=== PATIENT | female | born 1945 | race Caucasian/White ===

== ENCOUNTER 2016-08-22 13:18 | Emergency (ER) | payer MEDICARE, MEDICAID ==
[~2016-08-22 13:18] MED LIST: ANOR1AER INH; ASPI1TAB PO; ASPI81TA85 PO; ATOR1TAB21 PO; BISO10TA6 PO; CARV12.5 PO; DEMA5TAB PO; DIGO0.12 PO; DONETAB6 PO; DRIS50002 PO; FENO48TA2 PO; FERR325T PO; GLIM2TAB PO; GLIP-163 PO; HYDR-3363 PO; HYDR25T PO; LEVA500T PO; OMEP20CA3 PO; OXYB5TA PO; OXYB5TAB80 PO; POTA10CA PO; PRAD150C PO; SERT-138 PO; SPIR25TA2 PO; SPIRIVA INH; TORS20TA2 PO; TORS5TAB8 PO; VICT18IN SC; VITA10002 PO; VITA100072 PO; VITA500047 PO; ZOLO50TA PO; [UNRECOGNIZED DRUG - CODE] IM
--- NOTE | 2016-08-22 14:07 | EDDOCDS ---
Nurse's Notes [facility] Name: Cris Fields Age: 71 yrs Sex: Female : 1945 Arrival Date: 08/22/2016 Time: 13:18 Bed TR7 Private MD: Abdoul Sinha Diagnosis: Cellulitis of right lower limb;Conjunctivitis Presentation: 08/22 13:27 Presenting complaint: Patient states: picked off the mole from Right thigh 3 weeks ago. rs3 redness/swelling spread to R knee for 2 weeks. L eye itching for a week. symptoms getting worse. Adult Sepsis Screening: The patient does not have new or worsening altered mentation. Patient's respiratory rate is less than 22. Systolic blood pressure is greater than 100. Patient has a qSOFA score of 0- Negative Sepsis Screen. Suicide/Homicide risk assessment- the patient denies having any suicidal and/or homicidal ideations and does not present with any other emotional, behavioral or mental health complaints. Status: Patient is not a social service assistant or dependent. Transition of care: patient was not received from another setting of care. 13:27 Acuity: MACKENZIE Level 3 rs3 13:27 Method Of Arrival: Walkin/Carried/Asstd rs3 Triage Assessment: 13:34 General: Appears in no apparent distress. Pain: Location: right leg. rs3 Historical: - Allergies: no known allergies; - Home Meds: 1. atorvastatin 20 mg oral tab 1 tab once daily 2. Vitamin D Oral 97608 unit weekly 3. glipizide 2.5 mg Oral tr24 2 tabs twice a day 4. aspirin 81 mg Oral TbEC 1 tab once daily 5. digoxin 125 mcg Oral tab 1 tab once daily 6. oxybutynin chloride 5 mg Oral tr24 1 tab three times a day 7. omeprazole 20 mg Oral cpDR 1 cap once daily 8. spironolactone 25 mg Oral tab 1 tab once daily 9. torsemide 20 mg oral tab 2 tabs twice a day 10. ferrous sulfate 325 mg (65 mg iron) Oral TbEC daily 11. Klor-Con 10 10 mEq Oral TbER 2 tabs 2 times per day 12. fenofibrate 50 mg oral cap 1 cap once daily 13. Zoloft 100 mg Oral tab 1.5 tabs once daily 14. carvedilol 12.5 mg oral tab 1 tab 2 times per day 15. memantine 10 mg oral tab 2 times per day 16. Victoza 2-Shadi 0.6 mg/0.1 mL (18 mg/3 mL) subcutaneous pnij 0.3 mL once daily 17. Anoro Ellipta 62.5-25 mcg/actuation inhalation dsdv 1 puff once daily - PMHx: Alzheimers; Atrial Fib; CHF; Diabetes - NIDDM: uncontrolled; High Cholesterol; Hypertension; [place]; overactive bladder; - PSHx: Cholecystectomy; CABG; PTCA; - Social history: Smoking status: Patient states former smoker of tobacco. No barriers to communication noted, The patient speaks fluent Latvian. - Family history: Not pertinent. - : The pt / caregiver states he / she is not on anticoagulants. Home medication list is obtained from the patient. - Exposure Risk Screening:: None identified. Screenin:22 Infection Control. [facility] 14:06 Screening information is obtained from the patient. Fall risk: No risks identified. rs3 Assistance ADL's: requires no assistance with activities of daily living. Abuse/DV Screen: The patient / caregiver reports he/she is: not in a situation that causes fear, pain or injury. Nutritional screening: No deficits noted. Advance Directives: Currently, there is no health care proxy. home support is adequate. Assessment: 14:04 General: Appears in no apparent distress, Behavior is appropriate for age, cooperative. rs3 Pain: Location: lateral aspect of right thigh. Respiratory: Airway is patent Respiratory effort is even, unlabored. Derm: erythema well demarcated on right lateral thigh. No ulceration or drainage. Swollen area noted. Vital Signs: 13:20 BP 173 / 94; Pulse 74; Resp 18; Temp 98.6; Pulse Ox 100% ; Weight 77.11 kg; Height 5 dem1 ft. 2 in. (157.48 cm); Pain 9/10; 13:20 Body Mass Index 31.09 (77.11 kg, 157.48 cm) [facility] Vitals: 13:20 Log In Time: August 22, 2016 at 13:19. [facility] ED Course: 13:20 Patient visited by Charis Russell. [facility] 13:20 Abdoul Sinha is Private Physician. dem1 13:20 Patient moved to Waiting dem1 13:22 Patient moved to Pre RCE dem1 13:30 Triage Initiated rs3 13:35 José Luis Vaughan PA-C is PSYCH[facility]IC[facility]. cc10 13:35 Jason Pérez MD is Attending Physician. cc10 13:35 Patient moved to Triage 1 rs3 13:53 Patient visited by José Luis Vaughan PA-C. cc10 13:53 Patient visited by José Luis Vaughan PA-C. cc10 13:58 [facility] is Referral Physician. cc10 13:59 [facility] Payment Agreement was scanned into [employer] and attached to record. 14:04 Patient moved to TR7 rs3 14:06 No IV's were initiated during this patient's visit. No procedures done that require rs3 assistance. 14:07 The patient / caregiver is instructed regarding the plan of care and ED course. rs3 Order Results: There are currently no results for this order. Outcome: 13:58 Discharge ordered by Provider. cc10 14:06 Discharge Assessment: patient administered narcotics - no. The following High Risk rs3 Discharge criteria are identified: None. Discharged to home with family. Condition: stable. Discharge instructions given to patient, Instructed on discharge instructions, follow up and referral plans. medication usage, Demonstrated understanding of instructions, medications, Pt was receptive of discharge instructions/ teaching. Prescriptions given X 2. No special radiology studies were completed. Property :Personal belongings accompany Pt. 14:07 Patient left the ED. rs3 Signatures: Bonita Sánchez, Reg Reg Kassie Saldana RN RN rs3 Drew Stevenlesvia dem1 José Luis Vaughan PA-C PA-C cc10 Corrections: (The following items were deleted from the chart) 13:35 13:27 Presenting complaint: Patient states: picked off the mole from Right thigh 3 rs3 weeks ago. redness/swelling spread to R knee for 2 weeks. symptoms getting worse. rs3 MTDD
--- NOTE | 2016-08-22 14:07 | EDDOCDS ---
Physician Documentation [facility] Name: Cris Fields Age: 71 yrs Sex: Female : 1945 Arrival Date: 08/22/2016 Time: 13:18 Bed TR7 Private MD: Abdoul Sinha Disposition: 08/22/16 13:58 Discharged to Home/Self Care. Impression: Cellulitis of right lower limb, Conjunctivitis. - Condition is Stable. - Discharge Instructions: Cellulitis, Eye - Viral Conjunctivitis. - Prescriptions for Naphcon- A 0.025-0.3 % Ophthalmic Drops - instill 1 drop by OPHTHALMIC route 2-4 times daily; 1 bottle. Doxycycline Hyclate 100 mg Oral Tablet - take 1 tablet by ORAL route every 12 hours; 20 tablet. - Medication Reconciliation form. - Follow up: Emergency Department; When: As needed; Reason: Worsening of conditions. [facility]: [facility]; When: Call to arrange an appointment; Reason: To establish care. - Problem is an ongoing problem. - Symptoms are unchanged. - Notes: Please follow up with the [facility] clinic for a wound recheck and care. Thanks. Historical: - Allergies: no known allergies; - Home Meds: 1. atorvastatin 20 mg oral tab 1 tab once daily 2. Vitamin D Oral 81978 unit weekly 3. glipizide 2.5 mg Oral tr24 2 tabs twice a day 4. aspirin 81 mg Oral TbEC 1 tab once daily 5. digoxin 125 mcg Oral tab 1 tab once daily 6. oxybutynin chloride 5 mg Oral tr24 1 tab three times a day 7. omeprazole 20 mg Oral cpDR 1 cap once daily 8. spironolactone 25 mg Oral tab 1 tab once daily 9. torsemide 20 mg oral tab 2 tabs twice a day 10. ferrous sulfate 325 mg (65 mg iron) Oral TbEC daily 11. Klor-Con 10 10 mEq Oral TbER 2 tabs 2 times per day 12. fenofibrate 50 mg oral cap 1 cap once daily 13. Zoloft 100 mg Oral tab 1.5 tabs once daily 14. carvedilol 12.5 mg oral tab 1 tab 2 times per day 15. memantine 10 mg oral tab 2 times per day 16. Victoza 2-Shadi 0.6 mg/0.1 mL (18 mg/3 mL) subcutaneous pnij 0.3 mL once daily 17. Anoro Ellipta 62.5-25 mcg/actuation inhalation dsdv 1 puff once daily - PMHx: Alzheimers; Atrial Fib; CHF; Diabetes - NIDDM: uncontrolled; High Cholesterol; Hypertension; [place]; overactive bladder; - PSHx: Cholecystectomy; CABG; PTCA; - Social history: Smoking status: Patient states former smoker of tobacco. No barriers to communication noted, The patient speaks fluent Maori. - Family history: Not pertinent. - : The pt / caregiver states he / she is not on anticoagulants. Home medication list is obtained from the patient. - Exposure Risk Screening:: None identified. Vital Signs: 08/22 13:20 BP 173 / 94; Pulse 74; Resp 18; Temp 98.6; Pulse Ox 100% ; Weight 77.11 kg / 170 lbs; dem1 Height 5 ft. 2 in. (157.48 cm); Pain 9/10; 13:20 Body Mass Index 31.09 (77.11 kg, 157.48 cm) dem1 MDM: 13:59 Financial registration complete. gb 13:59 [facility] Payment Agreement was scanned into [employer] and attached to record. gb Signatures: Bonita Sánchez, Reg Reg gb Kassie SaldanaRN RN rs3 José Luis Vaughan, TODDC PALinda cc10 The chart was reviewed and I authenticate all verbal orders and agree with the evaluation and treatment provided.Attachments: 13:59 [facility] Payment Agreement gb MTDD
--- NOTE | 2016-08-24 15:08 | EDDOCDS ---
Physician Documentation [facility] Name: Cris Fields Age: 71 yrs Sex: Female : 1945 Arrival Date: 08/22/2016 Time: 13:18 Bed TR7 Private MD: Abdoul Sinha Disposition: 08/22/16 13:58 Discharged to Home/Self Care. Impression: Cellulitis of right lower limb, Conjunctivitis. - Condition is Stable. - Discharge Instructions: Cellulitis, Eye - Viral Conjunctivitis. - Prescriptions for Naphcon- A 0.025-0.3 % Ophthalmic Drops - instill 1 drop by OPHTHALMIC route 2-4 times daily; 1 bottle. Doxycycline Hyclate 100 mg Oral Tablet - take 1 tablet by ORAL route every 12 hours; 20 tablet. - Medication Reconciliation form. - Follow up: Emergency Department; When: As needed; Reason: Worsening of conditions. Follow up: [facility]; When: Call to arrange an appointment; Reason: To establish care. - Problem is an ongoing problem. - Symptoms are unchanged. - Notes: Please follow up with the [facility] clinic for a wound recheck and care. Thanks. Historical: - Allergies: no known allergies; - Home Meds: 1. atorvastatin 20 mg oral tab 1 tab once daily 2. Vitamin D Oral 08557 unit weekly 3. glipizide 2.5 mg Oral tr24 2 tabs twice a day 4. aspirin 81 mg Oral TbEC 1 tab once daily 5. digoxin 125 mcg Oral tab 1 tab once daily 6. oxybutynin chloride 5 mg Oral tr24 1 tab three times a day 7. omeprazole 20 mg Oral cpDR 1 cap once daily 8. spironolactone 25 mg Oral tab 1 tab once daily 9. torsemide 20 mg oral tab 2 tabs twice a day 10. ferrous sulfate 325 mg (65 mg iron) Oral TbEC daily 11. Klor-Con 10 10 mEq Oral TbER 2 tabs 2 times per day 12. fenofibrate 50 mg oral cap 1 cap once daily 13. Zoloft 100 mg Oral tab 1.5 tabs once daily 14. carvedilol 12.5 mg oral tab 1 tab 2 times per day 15. memantine 10 mg oral tab 2 times per day 16. Victoza 2-Shadi 0.6 mg/0.1 mL (18 mg/3 mL) subcutaneous pnij 0.3 mL once daily 17. Anoro Ellipta 62.5-25 mcg/actuation inhalation dsdv 1 puff once daily - PMHx: Alzheimers; Atrial Fib; CHF; Diabetes - NIDDM: uncontrolled; High Cholesterol; Hypertension; [place]; overactive bladder; - PSHx: Cholecystectomy; CABG; PTCA; - Social history: Smoking status: Patient states former smoker of tobacco. No barriers to communication noted, The patient speaks fluent Arabic. - Family history: Not pertinent. - : The pt / caregiver states he / she is not on anticoagulants. Home medication list is obtained from the patient. - Exposure Risk Screening:: None identified. Vital Signs: 08/22 13:20 BP 173 / 94; Pulse 74; Resp 18; Temp 98.6; Pulse Ox 100% ; Weight 77.11 kg / 170 lbs; dem1 Height 5 ft. 2 in. (157.48 cm); Pain 9/10; 13:20 Body Mass Index 31.09 (77.11 kg, 157.48 cm) dem1 MDM: 13:59 Financial registration complete. gb 13:59 [facility] Payment Agreement was scanned into [employer] and attached to record. gb 17:21 T-Sheet-- Draft Copy was scanned into [employer] and attached to record. klr Signatures: Bonita Sánchez, Reg Reg gb Kassie Saldana,RN RN rs3 José Luis Vaughan PA-C PAUrbanC cc10 Denice Moreno The chart was reviewed and I authenticate all verbal orders and agree with the evaluation and treatment provided.Attachments: 13:59 [facility] Payment Agreement gb 17:21 T-Sheet-- Draft Copy klr Chart Complete MTDD
--- NOTE | 2016-08-24 15:08 | EDDOCDS ---
Physician Documentation [facility] Name: Cris Fields Age: 71 yrs Sex: Female : 1945 Arrival Date: 08/22/2016 Time: 13:18 Bed TR7 Private MD: Abdoul Sinha Disposition: 08/22/16 13:58 Discharged to Home/Self Care. Impression: Cellulitis of right lower limb, Conjunctivitis. - Condition is Stable. - Discharge Instructions: Cellulitis, Eye - Viral Conjunctivitis. - Prescriptions for Naphcon- A 0.025-0.3 % Ophthalmic Drops - instill 1 drop by OPHTHALMIC route 2-4 times daily; 1 bottle. Doxycycline Hyclate 100 mg Oral Tablet - take 1 tablet by ORAL route every 12 hours; 20 tablet. - Medication Reconciliation form. - Follow up: Emergency Department; When: As needed; Reason: Worsening of conditions. Follow up: [facility]; When: Call to arrange an appointment; Reason: To establish care. - Problem is an ongoing problem. - Symptoms are unchanged. - Notes: Please follow up with the [facility] clinic for a wound recheck and care. Thanks. Historical: - Allergies: no known allergies; - Home Meds: 1. atorvastatin 20 mg oral tab 1 tab once daily 2. Vitamin D Oral 46699 unit weekly 3. glipizide 2.5 mg Oral tr24 2 tabs twice a day 4. aspirin 81 mg Oral TbEC 1 tab once daily 5. digoxin 125 mcg Oral tab 1 tab once daily 6. oxybutynin chloride 5 mg Oral tr24 1 tab three times a day 7. omeprazole 20 mg Oral cpDR 1 cap once daily 8. spironolactone 25 mg Oral tab 1 tab once daily 9. torsemide 20 mg oral tab 2 tabs twice a day 10. ferrous sulfate 325 mg (65 mg iron) Oral TbEC daily 11. Klor-Con 10 10 mEq Oral TbER 2 tabs 2 times per day 12. fenofibrate 50 mg oral cap 1 cap once daily 13. Zoloft 100 mg Oral tab 1.5 tabs once daily 14. carvedilol 12.5 mg oral tab 1 tab 2 times per day 15. memantine 10 mg oral tab 2 times per day 16. Victoza 2-Shadi 0.6 mg/0.1 mL (18 mg/3 mL) subcutaneous pnij 0.3 mL once daily 17. Anoro Ellipta 62.5-25 mcg/actuation inhalation dsdv 1 puff once daily - PMHx: Alzheimers; Atrial Fib; CHF; Diabetes - NIDDM: uncontrolled; High Cholesterol; Hypertension; [place]; overactive bladder; - PSHx: Cholecystectomy; CABG; PTCA; - Social history: Smoking status: Patient states former smoker of tobacco. No barriers to communication noted, The patient speaks fluent Macedonian. - Family history: Not pertinent. - : The pt / caregiver states he / she is not on anticoagulants. Home medication list is obtained from the patient. - Exposure Risk Screening:: None identified. Vital Signs: 08/22 13:20 BP 173 / 94; Pulse 74; Resp 18; Temp 98.6; Pulse Ox 100% ; Weight 77.11 kg / 170 lbs; dem1 Height 5 ft. 2 in. (157.48 cm); Pain 9/10; 13:20 Body Mass Index 31.09 (77.11 kg, 157.48 cm) dem1 MDM: 13:59 Financial registration complete. gb 13:59 [facility] Payment Agreement was scanned into [employer] and attached to record. gb 17:21 T-Sheet-- Draft Copy was scanned into [employer] and attached to record. klr Signatures: Bonita Sánchez, Reg Reg gb Kassie Saldana,RN RN rs3 José Luis Vaughan PA-C PAUrbanC cc10 Denice Moreno The chart was reviewed and I authenticate all verbal orders and agree with the evaluation and treatment provided.Attachments: 13:59 [facility] Payment Agreement gb 17:21 T-Sheet-- Draft Copy klr Chart Complete MTDD
--- NOTE | 2016-08-24 15:08 | EDDOCDS ---
Nurse's Notes [facility] Name: Cris Fields Age: 71 yrs Sex: Female : 1945 Arrival Date: 08/22/2016 Time: 13:18 Bed TR7 Private MD: Abdoul Sinha Diagnosis: Cellulitis of right lower limb;Conjunctivitis Presentation: 08/22 13:27 Presenting complaint: Patient states: picked off the mole from Right thigh 3 weeks ago. rs3 redness/swelling spread to R knee for 2 weeks. L eye itching for a week. symptoms getting worse. Adult Sepsis Screening: The patient does not have new or worsening altered mentation. Patient's respiratory rate is less than 22. Systolic blood pressure is greater than 100. Patient has a qSOFA score of 0- Negative Sepsis Screen. Suicide/Homicide risk assessment- the patient denies having any suicidal and/or homicidal ideations and does not present with any other emotional, behavioral or mental health complaints. Status: Patient is not a director clinical information services or dependent. Transition of care: patient was not received from another setting of care. 13:27 Acuity: MACKENZIE Level 3 rs3 13:27 Method Of Arrival: Walkin/Carried/Asstd rs3 Triage Assessment: 13:34 General: Appears in no apparent distress. Pain: Location: right leg. rs3 Historical: - Allergies: no known allergies; - Home Meds: 1. atorvastatin 20 mg oral tab 1 tab once daily 2. Vitamin D Oral 9[address]39 unit weekly 3. glipizide 2.5 mg Oral tr24 2 tabs twice a day 4. aspirin 81 mg Oral TbEC 1 tab once daily 5. digoxin 125 mcg Oral tab 1 tab once daily 6. oxybutynin chloride 5 mg Oral tr24 1 tab three times a day 7. omeprazole 20 mg Oral cpDR 1 cap once daily 8. spironolactone 25 mg Oral tab 1 tab once daily 9. torsemide 20 mg oral tab 2 tabs twice a day 10. ferrous sulfate 325 mg (65 mg iron) Oral TbEC daily 11. Klor-Con 10 10 mEq Oral TbER 2 tabs 2 times per day 12. fenofibrate 50 mg oral cap 1 cap once daily 13. Zoloft 100 mg Oral tab 1.5 tabs once daily 14. carvedilol 12.5 mg oral tab 1 tab 2 times per day 15. memantine 10 mg oral tab 2 times per day 16. Victoza 2-Shadi 0.6 mg/0.1 mL (18 mg/3 mL) subcutaneous pnij 0.3 mL once daily 17. Anoro Ellipta 62.5-25 mcg/actuation inhalation dsdv 1 puff once daily - PMHx: Alzheimers; Atrial Fib; CHF; Diabetes - NIDDM: uncontrolled; High Cholesterol; Hypertension; [place]; overactive bladder; - PSHx: Cholecystectomy; CABG; PTCA; - Social history: Smoking status: Patient states former smoker of tobacco. No barriers to communication noted, The patient speaks fluent Bulgarian. - Family history: Not pertinent. - : The pt / caregiver states he / she is not on anticoagulants. Home medication list is obtained from the patient. - Exposure Risk Screening:: None identified. Screenin:22 Infection Control. [facility] 14:06 Screening information is obtained from the patient. Fall risk: No risks identified. rs3 Assistance ADL's: requires no assistance with activities of daily living. Abuse/DV Screen: The patient / caregiver reports he/she is: not in a situation that causes fear, pain or injury. Nutritional screening: No deficits noted. Advance Directives: Currently, there is no health care proxy. home support is adequate. Assessment: 14:04 General: Appears in no apparent distress, Behavior is appropriate for age, cooperative. rs3 Pain: Location: lateral aspect of right thigh. Respiratory: Airway is patent Respiratory effort is even, unlabored. Derm: erythema well demarcated on right lateral thigh. No ulceration or drainage. Swollen area noted. Vital Signs: 13:20 BP 173 / 94; Pulse 74; Resp 18; Temp 98.6; Pulse Ox 100% ; Weight 77.11 kg; Height 5 dem1 ft. 2 in. (157.48 cm); Pain 9/10; 13:20 Body Mass Index 31.09 (77.11 kg, 157.48 cm) [facility] Vitals: 13:20 Log In Time: August 22, 2016 at 13:19. [facility] ED Course: 13:20 Patient visited by Charis Russell. [facility] 13:20 Abdoul Sinha is Private Physician. dem1 13:20 Patient moved to Waiting dem1 13:22 Patient moved to Pre RCE dem1 13:30 Triage Initiated rs3 13:35 [facility] cc[facility] 13:35 Jason Pérez MD is Attending Physician. cc10 13:35 Patient moved to Triage 1 rs3 13:53 Patient visited by José Luis Vaughan PA-C. cc10 13:53 Patient visited by José Luis Vaughan PA-C. cc10 13:58 [facility] is Referral Physician. cc10 13:59 [facility] Payment Agreement was scanned into [employer] and attached to record. gb 14:04 Patient moved to TR7 rs3 14:06 No IV's were initiated during this patient's visit. No procedures done that require rs3 assistance. 14:07 The patient / caregiver is instructed regarding the plan of care and ED course. rs3 17:21 T-Sheet-- Draft Copy was scanned into [employer] [place] and attached to record. klr Order Results: There are currently no results for this order. Outcome: 13:58 Discharge ordered by Provider. cc10 14:06 Discharge Assessment: patient administered narcotics - no. The following High Risk rs3 Discharge criteria are identified: None. Discharged to home with family. Condition: stable. Discharge instructions given to patient, Instructed on discharge instructions, follow up and referral plans. medication usage, Demonstrated understanding of instructions, medications, Pt was receptive of discharge instructions/ teaching. Prescriptions given X 2. No special radiology studies were completed. Property :Personal belongings accompany Pt. 14:07 Patient left the ED. rs3 Signatures: Bonita Sánchez, Reg Reg Kassie Saldana RN RN rs3 Charis Russell dem1 José Luis Vaughan PA-C PA-C cc10 Denice Moreno klr Corrections: (The following items were deleted from the chart) 13:35 13:27 Presenting complaint: Patient states: picked off the mole from Right thigh 3 rs3 weeks ago. redness/swelling spread to R knee for 2 weeks. symptoms getting worse. rs3 Chart Complete MTDD
== END 2016-08-22 14:07 | disposition home or self-care (01) ==
LOC: M ED 13:18
DX: L03.115 Cellulitis of right lower limb (principal); H10.30 Unspecified acute conjunctivitis, unspecified eye; G30.9 Alzheimer's disease, unspecified; I48.91 Unspecified atrial fibrillation; I50.20 Unspecified systolic (congestive) heart failure; E11.65 Type 2 diabetes mellitus with hyperglycemia; E78.00 Pure hypercholesterolemia, unspecified; I10 Essential (primary) hypertension; I25.2 Old myocardial infarction; N32.81 Overactive bladder; Z87.891 Personal history of nicotine dependence; Z79.82 Long term (current) use of aspirin; Z79.899 Other long term (current) drug therapy

== ENCOUNTER → 2016-09-09 | Outpatient (REF) | payer MEDICARE, MEDICAID | LOC: M LAB REF 12:43 | PROVIDERS: ATTEND Family Medicine | DX: R10.84 Generalized abdominal pain (principal); I10 Essential (primary) hypertension; R32 Unspecified urinary incontinence; E11.8 Type 2 diabetes mellitus with unspecified complications; Z00.00 Encounter for general adult medical examination without abnormal findings ==

== ENCOUNTER → 2016-09-09 | Outpatient (REF) | payer MEDICARE, MEDICAID ==
[2016-09-09 15:56] LABS: BASO # 0.1 K/mm3 (0.0-0.2); BASO % 0.9 % (0.0-1.0); EOS # 0.2 K/mm3 (0.0-0.50); EOS % 1.9 % (0.0-3.0); LARGE UNSTAINED CELL # 0.1 K/mm3 (0.0-0.4); LARGE UNSTAINED CELL % 0.9 % (0.0-4.0); LYMPH # 2.1 K/mm3 (1.5-4.5); LYMPH % 20.6 % (24.0-44.0); MEAN CORPUSCULAR HEMOGLOBIN 30.6 pg (27.0-33.0); MEAN CORPUSCULAR HGB CONC 34.8 g/dl (32.0-36.5); MONO # 0.5 K/mm3 (0.0-0.8); MONO % 5.1 % (0.0-5.0); NEUTROPHILS # 6.8 K/mm3 (1.8-7.7); NEUTROPHILS % 70.5 % (36.0-66.0); PLATELET COUNT, AUTOMATED 314 k/mm3 (150-450); RED CELL DISTRIBUTION WIDTH 13.8 % (11.5-14.5); WHITE BLOOD COUNT 9.7 K/mm3 (4.0-10.0)
[2016-09-09 16:33] LABS: ALBUMIN 4.2 GM/DL (3.2-5.2); ALBUMIN/GLOBULIN RATIO 1.14 (1.00-1.93); BILIRUBIN,TOTAL 0.9 MG/DL (0.2-1.0); CALCIUM LEVEL 9.2 MG/DL (8.8-10.2); CREATININE FOR GFR 1.05 MG/DL (0.55-1.02); FREE T4 0.69 NG/DL (0.76-1.46); GLOMERULAR FILTRATION RATE 54.7 (>39); POTASSIUM SERUM 3.6 MEQ/L (3.5-5.1); TOTAL PROTEIN 7.9 GM/DL (6.4-8.2)
== END ==
LOC: M LABDRAW1 15:25
PROVIDERS: ATTEND Family Medicine
DX: R10.84 Generalized abdominal pain (principal); I10 Essential (primary) hypertension; R32 Unspecified urinary incontinence; E11.8 Type 2 diabetes mellitus with unspecified complications; Z00.00 Encounter for general adult medical examination without abnormal findings

== ENCOUNTER → 2016-10-16 | Outpatient (CLI) | payer MEDICARE, MEDICAID ==
--- NOTE | 2016-10-16 15:12 | REP ---
Renal and bladder ultrasound: The kidneys are normal size. The right kidney measures 10.9 x 4.6 x 3.7 cm. Left kidney measures 10.6 x 4.3 x 4.4 cm. Renal cortical echogenicity is normal bilaterally. There is no hydronephrosis on the right on the left. There is a right renal 5.2 mm upper pole calculus. . There are no left renal calculi. There is no hydronephrosis, mass or cyst on the right on the left. Bladder ultrasound: The bladder is nondistended and the prevoid bladder contains 34 millimeters. Postvoid bladder contains 17 ml. The postvoid residual is 50%. Impression: Right renal non obstructive upper pole calculus. Otherwise, negative renal ultrasound. The bladder is nondistended and cannot be assessed. Signed by Maykel Tang MD 10/16/2016 03:03 P
== END ==
LOC: M RAD 13:11
PROVIDERS: ATTEND Family Medicine
DX: M54.5 Low back pain (principal)

== ENCOUNTER 2016-11-17 22:44 | Emergency (ER) | payer MEDICARE, MEDICAID ==
[~2016-11-17] VITALS: Ht 154.9 cm; Wt 83.9 kg
[2016-11-17] MEDS ORDERED: GLIP5TAB8 PO (23:00)
[2016-11-17] MEDS ORDERED: VICT18IN SC (23:00)
[2016-11-17] MEDS ORDERED: NAME10TA PO (23:00)
[2016-11-17] MEDS ORDERED: CIPR500T89 PO (23:00)
[2016-11-17] MEDS ORDERED: INVO100T PO (23:00)
[2016-11-17] MEDS ORDERED: LEVO75TA4 PO (23:00)
[2016-11-18] MEDS ORDERED: ASPIRIN 325 MG TAB PO ONE (00:15)
[2016-11-18 00:30] LABS: BASO # 0.1 K/mm3 (0.0-0.2); BASO % 0.6 % (0.0-1.0); EOS # 0.3 K/mm3 (0.0-0.50); EOS % 2.8 % (0.0-3.0); LARGE UNSTAINED CELL # 0.1 K/mm3 (0.0-0.4); LARGE UNSTAINED CELL % 1.3 % (0.0-4.0); LYMPH # 2.6 K/mm3 (1.5-4.5); LYMPH % 25.5 % (24.0-44.0); MEAN CORPUSCULAR HEMOGLOBIN 31.7 pg (27.0-33.0); MEAN CORPUSCULAR HGB CONC 34.9 g/dl (32.0-36.5); MEAN CORPUSCULAR VOLUME 90.6 fl (80.0-96.0); MONO # 0.6 K/mm3 (0.0-0.8); NEUTROPHILS # 6.4 K/mm3 (1.8-7.7); NEUTROPHILS % 63.8 % (36.0-66.0); PLATELET COUNT, AUTOMATED 290 k/mm3 (150-450); RED CELL DISTRIBUTION WIDTH 13.5 % (11.5-14.5)
[2016-11-18 00:43] LABS: INR 1.02
[2016-11-18 00:53] LABS: ANION GAP 5 MEQ/L (8-16); BLOOD UREA NITROGEN 17 MG/DL (7-18); CALCIUM LEVEL 8.7 MG/DL (8.8-10.2); CARBON DIOXIDE LEVEL 30 MEQ/L (21-32); CHLORIDE LEVEL 104 MEQ/L (98-107); CREATININE FOR GFR 0.98 MG/DL (0.55-1.02); GLOMERULAR FILTRATION RATE 59.2 (>39); GLUCOSE, FASTING 201 MG/DL (83-110); POTASSIUM SERUM 3.4 MEQ/L (3.5-5.1); SODIUM LEVEL 139 MEQ/L (136-145)
[2016-11-18] MEDS ORDERED: NS 1,000 ML IV ONE (01:15)
[2016-11-18] MEDS ORDERED: ISOVUE-370 76% 100ML VIAL (Q9967) As Ordered ONE (01:22)
--- NOTE | 2016-11-18 02:20 | REPUSA ---
CLINICAL HISTORY: Pain, exclude PE. TECHNIQUE: Multiple incremental axial, coronal and oblique images are obtained from the thoracic inle t to the upper abdomen. Intravenous contrast material was administered as per pulmonary embolism prot ocol. COMMENTS: Endovascular stent is noted in the proximal aspect of the left common carotid artery. There is excellent opacification of pulmonary arterial system without evidence for pulmonary embolism . Aorta is of normal caliber without evidence for dissection or aneurysm. Bilateral basilar atelectatic pulmonary changes. There is no evidence of pleural or parenchymal mass. There are no pleural effusions. There is no evid ence of hilar or mediastinal lymphadenopathy. The heart is mildly enlarged. Images of the upper abdomen demonstrate no evidence of adrenal mass. The bony structures are free of lytic or blastic lesions. Multilevel degenerative changes are seen in volving the visualized thoracolumbar spine. Scattered calcifications are seen involving the aorta and major branches compatible with atherosclero sis. IMPRESSION: No evidence for pulmonary embolism. Endovascular stent is noted in the proximal aspect of the left common carotid artery. Thank you for your kind referral of this patient.
[2016-11-18 04:41] VITALS: BP 133/60
--- NOTE | 2016-11-18 20:14 | ECGEPIP ---
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
--- NOTE | 2016-11-18 20:15 | ECGEPIP ---
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
== END 2016-11-18 04:56 | disposition home or self-care (01) ==
LOC: M ED 11-18 00:22
DX: R07.89 Other chest pain (principal); S13.4XXA Sprain of ligaments of cervical spine, initial encounter
CPT/HCPCS: 71275; 80048; 82550; 82553; 84484; 85025; 85610; 85730; 93005; 99285; Q9967

== ENCOUNTER → 2017-01-20 | Outpatient (CLI) | payer MEDICARE, MEDICAID ==
[~2017-01-20] MED LIST changes: +CIPR-249 PO; +CORE12.5 PO; +DEPA250T32 PO; +FERR1TAB8 PO; -FERR325T PO; +GLIP5TAB8 PO; +INVO100T PO; +LEVA1TAB2 PO; -LEVA500T PO; +LEVO75TA4 PO; +NAME10TA PO; +NORCOTAB PO; -OXYB5TA PO; +OXYB5TAB10 PO; +RANI15TA PO; +TRIC145T22 PO; +ZOFR4TAB3 PO; +ZYRT10CA PO
[2017-01-20 15:19] LABS: ALBUMIN 3.9 GM/DL (3.2-5.2); CALCIUM LEVEL 9.6 MG/DL (8.8-10.2); CREATININE FOR GFR 0.99 MG/DL (0.55-1.02); GLOMERULAR FILTRATION RATE 58.5 (>39); MAGNESIUM LEVEL 2.6 MG/DL (1.8-2.4); PHOSPHORUS LEVEL 3.4 MG/DL (2.5-4.9)
== END ==
LOC: M LAB 14:17
PROVIDERS: ATTEND Physician Assistant
DX: I50.32 Chronic diastolic (congestive) heart failure (principal)

== ENCOUNTER 2017-02-23 13:26 | Emergency (ER) | payer MEDICARE, MEDICAID ==
[~2017-02-23 13:26] MED LIST changes: -CORE12.5 PO; -DEPA250T32 PO; -NORCOTAB PO; -RANI15TA PO; -TRIC145T22 PO; -ZOFR4TAB3 PO; -ZYRT10CA PO
[2017-02-23] MEDS ORDERED: ZOFR4TAB3 PO (13:42)
[2017-02-23] MEDS ORDERED: DEPA250T32 PO (13:42)
[2017-02-23] MEDS ORDERED: TRIC145T22 PO (13:42)
[2017-02-23] MEDS ORDERED: DONETAB6 PO (13:42)
[2017-02-23] MEDS ORDERED: CORE12.5 PO (13:42)
[2017-02-23] MEDS ORDERED: RANI15TA PO (13:42)
[2017-02-23] MEDS ORDERED: ZYRT10CA PO (13:42)
[2017-02-23] MEDS: NORCO, ANEXSIA 5/325MG TABLET (HYDROcodone/ACETAMINOPHEN) PO ONE (15:23)
[2017-02-23] MEDS ORDERED: NORCOTAB PO (16:09)
[2017-02-23 16:20] VITALS: BP 128/67
--- NOTE | 2017-02-23 17:41 | REP ---
Left knee series: Five views. History: Injury in a fall. Findings: Five views of the left knee demonstrate diffuse osteopenia and chondrocalcinosis. There is no visible fracture, subluxation or joint effusion. There is nonarticular spurring at the superior pole of the patella at the quadriceps tendon insertion. Dystrophic calcification is seen in the posterior popliteal soft tissues. Impression: Patellar spurring. Chondrocalcinosis. Diffuse osteoporosis. No fracture seen. Signed by Adelfo Garza MD 02/24/2017 07:57 A
== END 2017-02-23 16:31 | disposition home or self-care (01) ==
LOC: M ED 13:26
DX: M17.12 Unilateral primary osteoarthritis, left knee (principal); I48.91 Unspecified atrial fibrillation; I25.10 Atherosclerotic heart disease of native coronary artery without angina pectoris; I25.2 Old myocardial infarction; E11.9 Type 2 diabetes mellitus without complications; I10 Essential (primary) hypertension; K21.9 Gastro-esophageal reflux disease without esophagitis; G30.9 Alzheimer's disease, unspecified; Z86.73 Personal history of transient ischemic attack (TIA), and cerebral infarction without residual deficits; Z98.61 Coronary angioplasty status; Z79.82 Long term (current) use of aspirin; Z79.899 Other long term (current) drug therapy; Z79.84 Long term (current) use of oral hypoglycemic drugs

== ENCOUNTER → 2017-02-26 | Outpatient (CLI) | payer MEDICARE, MEDICAID ==
[~2017-02-26] MED LIST changes: +CORE12.5 PO; +DEPA250T32 PO; +NORCOTAB PO; +RANI15TA PO; +TRIC145T22 PO; +ZOFR4TAB3 PO; +ZYRT10CA PO
--- NOTE | 2017-02-26 12:42 | REP ---
Supine abdomen two views: Comparison 12/21/2013. There are calcifications in the pelvis, similar to the prior study, likely phleboliths. No calcifications are projected over the kidneys or ureters, however there is significant bowel gas obscuration. There are right upper quadrant surgical clips, not present previously. There is a scoliosis convex right. Degenerative disc disease in the lumbar spine. There is a 13 mm density projected over the left iliac wing, not present previously. This could be a bowel artifact, abdominal calcification or a new lesion in the left iliac wing. Signed by Maykel Tang MD 02/26/2017 12:33 P
== END ==
LOC: M RAD 10:34
PROVIDERS: ATTEND Specialist
DX: N20.0 Calculus of kidney (principal)

== ENCOUNTER → 2017-03-11 | Outpatient (REF) | payer MEDICARE, MEDICAID | LOC: M LAB REF 18:52 | PROVIDERS: ATTEND Physician Assistant Medical | DX: N39.0 Urinary tract infection, site not specified (principal) ==

== ENCOUNTER → 2017-04-05 | Outpatient (CLI) | payer MEDICARE, MEDICAID ==
--- NOTE | 2017-04-05 19:25 | REP ---
REASON: Renal calculi. COMPARISON: 02/26/2017. FINDINGS: KUB shows the intestinal gas pattern to be nonspecific. The organ silhouettes insofar as delineated are unremarkable. There is no evidence of free intraperitoneal air. There is no change from the prior exam. There are bilateral pelvic phleboliths. There is a small sclerotic lesion seen in the left iliac wing which is unchanged. The etiology of which is uncertain. There are spinal degenerative changes status quo. There are bilateral hip degenerative changes status quo. IMPRESSION: Nonspecific. Signed by Joshua Clark DO 04/06/2017 09:48 A
== END ==
LOC: M RAD 16:08
PROVIDERS: ATTEND Specialist
DX: N20.0 Calculus of kidney (principal)

== ENCOUNTER → 2017-06-10 | Outpatient (CLI) | payer MEDICARE, MEDICAID ==
[2017-06-10 11:56] LABS: BASO # 0.1 10^3/uL (0.0-0.2); BASO % 0.7 % (0.0-1.0); EOS # 0.1 10^3/uL (0.0-0.50); EOS % 1.1 % (0.0-3.0); IMMATURE GRANULOCYTE % 0.5 % (0-0); LYMPH % 21.5 % (24.0-44.0); MEAN CORPUSCULAR HEMOGLOBIN 29.4 pg (27.0-33.0); MEAN CORPUSCULAR HGB CONC 33.5 g/dl (32.0-36.5); MEAN CORPUSCULAR VOLUME 87.8 fl (80.0-96.0); MONO # 0.6 10^3/uL (0.0-0.8); MONO % 6.1 % (0.0-5.0); NEUTROPHILS # 6.4 10^3/uL (1.8-7.7); NEUTROPHILS % 70.1 % (36.0-66.0); PLATELET COUNT, AUTOMATED 334 10^3/uL (150-450); WHITE BLOOD COUNT 9.2 10^3/uL (4.0-10.0)
[2017-06-10 12:30] LABS: FOLATE 14.1 NG/ML
[2017-06-10 12:40] LABS: ALBUMIN 3.9 GM/DL (3.2-5.2); ALBUMIN/GLOBULIN RATIO 1.08 (1.00-1.93); BILIRUBIN,TOTAL 0.5 MG/DL (0.2-1.0); CALCIUM LEVEL 9.2 MG/DL (8.8-10.2); CREATININE FOR GFR 1.07 MG/DL (0.55-1.02); FREE T4 0.87 NG/DL (0.76-1.46); GLOMERULAR FILTRATION RATE 53.4 (>39); TOTAL PROTEIN 7.5 GM/DL (6.4-8.2)
== END ==
LOC: M LAB 11:19
PROVIDERS: ATTEND Family Medicine
DX: E11.9 Type 2 diabetes mellitus without complications (principal)

== ENCOUNTER 2017-07-23 19:55 | Emergency (ER) | payer MEDICARE, MEDICAID ==
[2017-07-23] MEDS: traMADol 50 MG TAB PO (23:15)
[2017-07-23] MEDS: ACETAMINOPHEN TAB 650MG DOSE (2X325MG) PO (23:15)
== END 2017-07-24 00:01 | disposition home or self-care (01) ==
LOC: M ED 07-24 00:01
DX: S50.11XA Contusion of right forearm, initial encounter (principal); S20.211A Contusion of right front wall of thorax, initial encounter; S70.01XA Contusion of right hip, initial encounter; W10.8XXA Fall (on) (from) other stairs and steps, initial encounter; Y92.098 Other place in other non-institutional residence as the place of occurrence of the external cause; Y93.01 Activity, walking, marching and hiking; Y99.8 Other external cause status; Z87.891 Personal history of nicotine dependence; I50.9 Heart failure, unspecified; I25.2 Old myocardial infarction; I11.0 Hypertensive heart disease with heart failure; E78.00 Pure hypercholesterolemia, unspecified; J44.9 Chronic obstructive pulmonary disease, unspecified; K21.9 Gastro-esophageal reflux disease without esophagitis; E11.9 Type 2 diabetes mellitus without complications; E03.9 Hypothyroidism, unspecified; M54.9 Dorsalgia, unspecified; E55.9 Vitamin D deficiency, unspecified; F41.9 Anxiety disorder, unspecified; F32.9 Major depressive disorder, single episode, unspecified; Z86.14 Personal history of Methicillin resistant Staphylococcus aureus infection; Z79.899 Other long term (current) drug therapy; Z79.82 Long term (current) use of aspirin
CPT/HCPCS: 71101

== ENCOUNTER → 2017-09-09 | Outpatient (REF) | payer MEDICARE, MEDICAID ==
[2017-09-09 16:21] LABS: ALBUMIN 4.1 GM/DL (3.2-5.2); ANION GAP 7 MEQ/L (8-16); BLOOD UREA NITROGEN 16 MG/DL (7-18); CALCIUM LEVEL 9.1 MG/DL (8.8-10.2); CARBON DIOXIDE LEVEL 30 MEQ/L (21-32); CHLORIDE LEVEL 102 MEQ/L (98-107); CREATININE FOR GFR 1.48 MG/DL (0.55-1.30); GLOMERULAR FILTRATION RATE 36.7 (>39); GLUCOSE, FASTING 57 MG/DL (70-100); PHOSPHORUS LEVEL 3.3 MG/DL (2.5-4.9); POTASSIUM SERUM 4.1 MEQ/L (3.5-5.1); SODIUM LEVEL 139 MEQ/L (136-145)
== END ==
LOC: M LABDRAW1 15:50
DX: I50.32 Chronic diastolic (congestive) heart failure (principal)
CPT/HCPCS: 80069

== ENCOUNTER 2017-09-29 07:09 | Day surgery (SDC) | payer MEDICARE, MEDICAID ==
[2017-09-29] MEDS: CEFUROXIME 1MG/0.1ML INTRACAMERAL INJ As Ordered (06:40)
[~2017-09-29 07:09] MED LIST changes: +ACETAMINOPHEN 325 MG TAB PO; -ANOR1AER INH; -ASPI1TAB PO; -ASPI81TA85 PO; -ATOR1TAB21 PO; -BISO10TA6 PO; -CARV12.5 PO; -CIPR-249 PO; -CORE12.5 PO; +CYCLOPENTOLATE 2% OPHTH SOLN 2ML BTL As Ordered; -DEMA5TAB PO; -DEPA250T32 PO; -DIGO0.12 PO; -DONETAB6 PO; -DRIS50002 PO; -FENO48TA2 PO; -FERR1TAB8 PO; -GLIM2TAB PO; -GLIP-163 PO; -GLIP5TAB8 PO; -HYDR-3363 PO; -HYDR25T PO; -INVO100T PO; -LEVA1TAB2 PO; -LEVO75TA4 PO; -NAME10TA PO; -NORCOTAB PO; +OFLOXACIN 0.3 % (OCUFLOX) OPTH SOL 5ML As Ordered; -OMEP20CA3 PO; -OXYB5TAB10 PO; -OXYB5TAB80 PO; +PHENYLEPHRINE 2.5% OPHTH SOL 2ML As Ordered; +PHENYLEPHRINE HCL 10 % OPHTH. SOL 5ML OD; -POTA10CA PO; -PRAD150C PO; +PROPARACAINE 0.5% OPHTH SOL 15ML OD; -RANI15TA PO; -SERT-138 PO; -SPIR25TA2 PO; -SPIRIVA INH; -TORS20TA2 PO; -TORS5TAB8 PO; -TRIC145T22 PO; +TROPICAMIDE 1% OPHTH SOLN 2ML As Ordered; +TROPICAMIDE 1% OPHTH SOLN 2ML OD; -VICT18IN SC; -VITA10002 PO; -VITA100072 PO; -VITA500047 PO; -ZOFR4TAB3 PO; -ZOLO50TA PO; -ZYRT10CA PO; -[UNRECOGNIZED DRUG - CODE] IM
[2017-09-29] MEDS ORDERED: fentaNYL 100 MCG/2 ML INJECTION (J3010) As Ordered (07:13)
[2017-09-29] MEDS ORDERED: MIDAZOLAM INJ 2 MG/2 ML VIAL (J2250) As Ordered (07:13)
[2017-09-29] MEDS: CYCLOPENTOLATE 2% OPHTH SOLN 2ML BTL OD (07:25)
[2017-09-29] MEDS: OFLOXACIN 0.3 % (OCUFLOX) OPTH SOL 5ML OD (07:25)
[2017-09-29] MEDS: LIDOCAINE 3.5 % 1ML OPHTH TOPICAL GEL OU (07:25)
[2017-09-29] MEDS: PHENYLEPHRINE 2.5% OPHTH SOL 2ML OD (07:25)
[2017-09-29 07:50] LABS: BEDSIDE GLUCOSE 123 MG/DL (83-110)
[2017-09-29] MEDS: POVIDONE-IODINE 5% OPHTH PREP SOL 30ML As Ordered (08:05)
[2017-09-29] MEDS: ACETYLCHOLINE OPHTH SOLN 1% 2ML (MIOCHOL-E) As Ordered (08:11)
[2017-09-29] MEDS: LIDOCAINE 1% SDV 5 ML VIAL As Ordered (08:11)
[2017-09-29] MEDS: BALANCED SALT IRRIGATION SOLUTION 500ML BAG (FOR OR EYE MACHINE) As Ordered (08:12)
[2017-09-29] MEDS: HEALON DUET (HEALON 10MG/ML 0.55ML & HEALON ENDOCOAT 30MG/ML 0.85ML) As Ordered (08:12)
[2017-09-29] MEDS ORDERED: TRIMETHOBENZAMIDE 300 MG CAP PO (08:45)
[2017-09-29] MEDS: AcetaZOLAMIDE 500 MG ER CAP PO (09:08)
[2017-09-29] MEDS: KETOROLAC 0.5% OPHTH SOLN OD (09:08)
== END 2017-09-29 09:15 | disposition home or self-care (01) ==
LOC: M SDC 07:09
DX: H25.11 Age-related nuclear cataract, right eye (principal); I48.2 Chronic atrial fibrillation; I25.10 Atherosclerotic heart disease of native coronary artery without angina pectoris; I25.2 Old myocardial infarction; I13.0 Hypertensive heart and chronic kidney disease with heart failure and stage 1 through stage 4 chronic kidney disease, or unspecified chronic kidney disease; I50.32 Chronic diastolic (congestive) heart failure; I08.0 Rheumatic disorders of both mitral and aortic valves; N18.3 Chronic kidney disease, stage 3 (moderate); E78.2 Mixed hyperlipidemia; E11.22 Type 2 diabetes mellitus with diabetic chronic kidney disease; G47.33 Obstructive sleep apnea (adult) (pediatric); I65.23 Occlusion and stenosis of bilateral carotid arteries; E03.9 Hypothyroidism, unspecified; K21.9 Gastro-esophageal reflux disease without esophagitis; D64.9 Anemia, unspecified; R29.898 Other symptoms and signs involving the musculoskeletal system; M12.9 Arthropathy, unspecified; F41.9 Anxiety disorder, unspecified; F03.90 Unspecified dementia, unspecified severity, without behavioral disturbance, psychotic disturbance, mood disturbance, and anxiety; F32.9 Major depressive disorder, single episode, unspecified; R51 Headache; G62.9 Polyneuropathy, unspecified; J44.9 Chronic obstructive pulmonary disease, unspecified; R32 Unspecified urinary incontinence; Z79.899 Other long term (current) drug therapy; Z79.82 Long term (current) use of aspirin; Z79.84 Long term (current) use of oral hypoglycemic drugs; Z86.73 Personal history of transient ischemic attack (TIA), and cerebral infarction without residual deficits; Z90.710 Acquired absence of both cervix and uterus; Z92.3 Personal history of irradiation; Z87.891 Personal history of nicotine dependence; Z95.5 Presence of coronary angioplasty implant and graft; Z95.1 Presence of aortocoronary bypass graft
CPT/HCPCS: 66984

== ENCOUNTER 2017-10-12 07:33 | Day surgery (SDC) | payer MEDICARE, MEDICAID ==
[~2017-10-12 07:33] MED LIST changes: -CYCLOPENTOLATE 2% OPHTH SOLN 2ML BTL As Ordered; -OFLOXACIN 0.3 % (OCUFLOX) OPTH SOL 5ML As Ordered; -PHENYLEPHRINE 2.5% OPHTH SOL 2ML As Ordered; -PHENYLEPHRINE HCL 10 % OPHTH. SOL 5ML OD; +PHENYLEPHRINE HCL 10 % OPHTH. SOL 5ML OS; -PROPARACAINE 0.5% OPHTH SOL 15ML OD; +PROPARACAINE 0.5% OPHTH SOL 15ML OS; -TROPICAMIDE 1% OPHTH SOLN 2ML As Ordered; -TROPICAMIDE 1% OPHTH SOLN 2ML OD
[2017-10-12] MEDS: CYCLOPENTOLATE 2% OPHTH SOLN 2ML BTL OS (08:00)
[2017-10-12] MEDS: LIDOCAINE 3.5 % 1ML OPHTH TOPICAL GEL OU (08:00)
[2017-10-12] MEDS: PHENYLEPHRINE 2.5% OPHTH SOL 2ML OS (08:05)
[2017-10-12] MEDS: TROPICAMIDE 1% OPHTH SOLN 2ML OS (08:10)
[2017-10-12] MEDS: OFLOXACIN 0.3 % (OCUFLOX) OPTH SOL 5ML OS (08:15)
[2017-10-12] MEDS ORDERED: CARVedilol 6.25 MG TAB PO (08:45)
[2017-10-12 08:59] LABS: BEDSIDE GLUCOSE 126 MG/DL (83-110)
[2017-10-12] MEDS ORDERED: fentaNYL 100 MCG/2 ML INJECTION (J3010) As Ordered (09:02)
[2017-10-12] MEDS ORDERED: MIDAZOLAM INJ 2 MG/2 ML VIAL (J2250) As Ordered (09:02)
[2017-10-12] MEDS: POVIDONE-IODINE 5% OPHTH PREP SOL 30ML As Ordered (09:25)
[2017-10-12] MEDS: CEFUROXIME 1MG/0.1ML INTRACAMERAL INJ As Ordered (09:31)
[2017-10-12] MEDS: HEALON DUET (HEALON 10MG/ML 0.55ML & HEALON ENDOCOAT 30MG/ML 0.85ML) As Ordered (09:31)
[2017-10-12] MEDS: LIDOCAINE 1% SDV 5 ML VIAL As Ordered (09:31)
[2017-10-12] MEDS: BALANCED SALT IRRIGATION SOLUTION 500ML BAG (FOR OR EYE MACHINE) As Ordered (09:32)
[2017-10-12] MEDS ORDERED: TRIMETHOBENZAMIDE 300 MG CAP PO (10:00)
[2017-10-12] MEDS: AcetaZOLAMIDE 500 MG ER CAP PO (10:00)
[2017-10-12] MEDS: KETOROLAC 0.5% OPHTH SOLN OS (10:00)
== END 2017-10-12 10:25 | disposition home or self-care (01) ==
LOC: M SDC 07:33
DX: H25.12 Age-related nuclear cataract, left eye (principal); I48.91 Unspecified atrial fibrillation; E11.9 Type 2 diabetes mellitus without complications; E03.9 Hypothyroidism, unspecified; K21.9 Gastro-esophageal reflux disease without esophagitis; D64.9 Anemia, unspecified; Z98.61 Coronary angioplasty status; I25.10 Atherosclerotic heart disease of native coronary artery without angina pectoris; I25.2 Old myocardial infarction; Z79.899 Other long term (current) drug therapy; J44.9 Chronic obstructive pulmonary disease, unspecified; E78.5 Hyperlipidemia, unspecified; Z86.73 Personal history of transient ischemic attack (TIA), and cerebral infarction without residual deficits; Z87.891 Personal history of nicotine dependence; Z79.82 Long term (current) use of aspirin; Z92.3 Personal history of irradiation
CPT/HCPCS: 66984

== ENCOUNTER 2017-11-28 19:56 | Emergency (ER) | payer MEDICARE, MEDICAID ==
[2017-11-28 20:35] LABS: BASO # 0.1 10^3/uL (0.0-0.2); BASO % 0.4 % (0.0-1.0); EOS # 0.2 10^3/uL (0.0-0.50); EOS % 1.7 % (0.0-3.0); HEMATOCRIT 38.9 % (36.0-47.0); HEMOGLOBIN 13.2 g/dl (12.0-15.5); IMMATURE GRANULOCYTE % 0.6 % (0-3.0); LYMPH # 3.1 10^3/uL (1.5-4.5); LYMPH % 22.9 % (24.0-44.0); MEAN CORPUSCULAR HEMOGLOBIN 30.3 pg (27.0-33.0); MEAN CORPUSCULAR HGB CONC 33.9 g/dl (32.0-36.5); MEAN CORPUSCULAR VOLUME 89.2 fl (80.0-96.0); MONO # 1.1 10^3/uL (0.0-0.8); NEUTROPHILS % 66.4 % (36.0-66.0); PLATELET COUNT, AUTOMATED 343 10^3/uL (150-450); RED BLOOD COUNT 4.36 10^6/uL (4.00-5.40); RED CELL DISTRIBUTION WIDTH 13.9 % (11.5-14.5); WHITE BLOOD COUNT 13.6 10^3/uL (4.0-10.0)
[2017-11-28 20:47] LABS: ANION GAP 5 MEQ/L (8-16); BLOOD UREA NITROGEN 20 MG/DL (7-18); CALCIUM LEVEL 9.2 MG/DL (8.8-10.2); CARBON DIOXIDE LEVEL 32 MEQ/L (21-32); CHLORIDE LEVEL 100 MEQ/L (98-107); CREATININE FOR GFR 1.15 MG/DL (0.55-1.30); GLOMERULAR FILTRATION RATE 49.1 (>39); GLUCOSE, FASTING 83 MG/DL (70-100); POTASSIUM SERUM 3.5 MEQ/L (3.5-5.1); SODIUM LEVEL 137 MEQ/L (136-145)
[2017-11-28] MEDS: ONDANSETRON 4MG/2ML VIAL (J2405) IV (20:53)
[2017-11-28] MEDS: MORPHINE 2 MG/ML 1ML SYRINGE (J2270) IV (20:53)
[2017-11-28 21:14] LABS: KETONE, URINE AUTO RFX NEGATIVE (NEGATIVE); NITRITE, URINE AUTO RFX NEGATIVE (NEGATIVE); RBC, URINE AUTO RFX 4 /HPF (0-3); SPECIFIC GRAVITY UR AUTO RFX 1.003 (1.002-1.035); SQUAM EPITHELIAL CELL UR AURFX 0 /HPF (0-6)
[2017-11-28 21:15] LABS: LEUKOCYTE ESTERASE UR AUTO RFX 2+ (NEGATIVE); WBC, URINE AUTO RFX 47 /HPF (0-3)
[2017-11-28] MEDS: CEPHALEXIN 500 MG CAP PO (21:39)
== END 2017-11-28 21:46 | disposition home or self-care (01) ==
LOC: M ED 19:56
DX: N30.00 Acute cystitis without hematuria (principal); I25.10 Atherosclerotic heart disease of native coronary artery without angina pectoris; I50.9 Heart failure, unspecified; I10 Essential (primary) hypertension; K21.9 Gastro-esophageal reflux disease without esophagitis; Z95.5 Presence of coronary angioplasty implant and graft; Z79.82 Long term (current) use of aspirin; Z79.899 Other long term (current) drug therapy; Z79.84 Long term (current) use of oral hypoglycemic drugs
CPT/HCPCS: J2405

== ENCOUNTER → 2018-01-03 | Outpatient (REF) | payer MEDICARE, MEDICAID ==
[2018-01-03 16:33] LABS: ANION GAP 9 MEQ/L (8-16); BLOOD UREA NITROGEN 17 MG/DL (7-18); CALCIUM LEVEL 9.2 MG/DL (8.8-10.2); CARBON DIOXIDE LEVEL 32 MEQ/L (21-32); CHLORIDE LEVEL 98 MEQ/L (98-107); CREATININE FOR GFR 1.12 MG/DL (0.55-1.30); GLOMERULAR FILTRATION RATE 50.6 (>39); GLUCOSE, FASTING 198 MG/DL (70-100); POTASSIUM SERUM 3.6 MEQ/L (3.5-5.1); SODIUM LEVEL 139 MEQ/L (136-145)
== END ==
LOC: M LABDRAW1 13:21
DX: I50.32 Chronic diastolic (congestive) heart failure (principal)
CPT/HCPCS: 80048

== ENCOUNTER 2018-07-22 16:07 | Emergency (ER) | payer MEDICARE, MEDICAID ==
[~2018-07-22] VITALS: Ht 160 cm; Wt 75.0 kg
[~2018-07-22 16:07] MED LIST changes: -ACETAMINOPHEN 325 MG TAB PO; +ANOR1AER INH; +ASPI1TAB PO; +ASPI81TA85 PO; +ATOR1TAB21 PO; +BASA100I SC; +BISO10TA6 PO; +CARV12.5 PO; +CIPR-249 PO; +CORE12.5 PO; +DEMA5TAB PO; +DEPA250T32 PO; +DIGO0.12 PO; +DONETAB6 PO; +DRIS50003 PO; +FENO48TA2 PO; +FERR1TAB8 PO; +GLIM2TAB PO; +GLIP-163 PO; +GLIP5TAB8 PO; +HYDR-3363 PO; +HYDR25T PO; +INVO100T PO; +KEFL500C17 PO; +KLOR10TA76 PO; +LEVA1TAB2 PO; +LEVO75TA4 PO; +LEVO88TA3; +NAME10TA PO; +NORCOTAB PO; +OMEP20CA3 PO; +OXYB5TAB10 PO; +OXYB5TAB80 PO; -PHENYLEPHRINE HCL 10 % OPHTH. SOL 5ML OS; +PRAD150C PO; -PROPARACAINE 0.5% OPHTH SOL 15ML OS; +RANI15TA PO; +SERT-138 PO; +SPIR-10 PO; +SPIR1CAP; +SPIR25TA2 PO; +SPIRIVA INH; +TOLT4CAP3 PO; +TORS20TA2 PO; +TORS5TAB8 PO; +TRIC145T22 PO; +ULTR50TA8 PO; +VICT18IN SC; +VITA10002 PO; +VITA100072 PO; +VITA500047 PO; +ZOFR4TAB14 PO; +ZOLO50TA PO; +ZYRT10CA PO; +[UNRECOGNIZED DRUG - CODE] IM
[2018-07-22] MEDS ORDERED: NS 500 ML IV ONE (17:45)
[2018-07-22] MEDS ORDERED: MORPHINE 2 MG/ML 1ML SYRINGE (J2270) IV ONE (17:45)
[2018-07-22] MEDS ORDERED: ATOR80TA59 PO (17:46)
[2018-07-22] MEDS ORDERED: LIPI20TA PO (17:46)
[2018-07-22] MEDS ORDERED: INVO100T PO (17:46)
[2018-07-22 18:43] LABS: BASO # 0.1 10^3/uL (0.0-0.2); BASO % 0.4 % (0.0-1.0); EOS # 0.1 10^3/uL (0.0-0.50); EOS % 0.8 % (0.0-3.0); HEMATOCRIT 38.4 % (36.0-47.0); LYMPH # 3.1 10^3/uL (1.5-4.5); LYMPH % 22.6 % (24.0-44.0); MEAN CORPUSCULAR HEMOGLOBIN 30.5 pg (27.0-33.0); MEAN CORPUSCULAR HGB CONC 33.9 g/dl (32.0-36.5); MEAN CORPUSCULAR VOLUME 90.1 fl (80.0-96.0); MONO % 7.6 % (0.0-5.0); NEUTROPHILS # 9.3 10^3/uL (1.8-7.7); NEUTROPHILS % 68.2 % (36.0-66.0); PLATELET COUNT, AUTOMATED 272 10^3/uL (150-450); RED BLOOD COUNT 4.26 10^6/uL (4.00-5.40); WHITE BLOOD COUNT 13.6 10^3/uL (4.0-10.0)
[2018-07-22] MEDS ORDERED: cefTRIAXone SOD 1 GM in D5W MINI-BAG PLUS 50 ML IV ONE (19:00)
[2018-07-22 19:28] LABS: ALBUMIN 4.6 GM/DL (3.2-5.2); BILIRUBIN,TOTAL 0.9 MG/DL (0.2-1.0); CALCIUM LEVEL 9.5 MG/DL (8.8-10.2); CREATININE FOR GFR 0.97 MG/DL (0.55-1.30); DIGOXIN LEVEL 1.1 NG/ML (0.5-2.0); GLOMERULAR FILTRATION RATE 59.6 (>39); POTASSIUM SERUM 3.5 MEQ/L (3.5-5.1)
[2018-07-22] MEDS ORDERED: MACR100C43 PO (19:40)
[2018-07-22 19:48] VITALS: BP 147/64
[2018-07-22] MEDS ORDERED: ACET30TAB PO (19:58)
--- NOTE | 2018-07-22 21:12 | REP ---
CT abdomen and pelvis without IV or oral contrast: History: Right flank pain. History of kidney stones. UTIs. Comparison CT study March 10, 2016. CT findings: Digital preliminary sprayer machine radiograph shows a normal bowel gas pattern. There are clips in right upper quadrant of the abdomen. The lung bases are clear. There are granulomatous calcifications in the spleen. Gallbladder surgically absent. The CBD is at the upper range of normal post cholecystectomy at 10 mm. No adrenal lesion is seen on either side. There is an accessory splenule. There is a renal parenchymal focal calcification in the upper pole right kidney. There is mild hydronephrosis bilaterally. This is similar appearance to the findings on the CT study from March 10, 2016. There are phleboliths in the pelvis. No definite ureteral calculus is observed although the distal ureter is difficult to follow on CT images. No bladder calculus is seen. Mild diffuse bladder wall thickening is observed. There is left colonic diverticulosis without CT evidence of diverticulitis. The appendix is surgically absent. No pelvic mass or adenopathy is seen. Bone window settings demonstrate degenerative spondylosis changes in the lumbar spine. There is evidence of substantial central canal stenosis at L4-5. Impression: Mild bilateral hydronephrosis, unchanged from March 10, 2016. Uncertain etiology. No definite ureteral calculus seen. There are multiple phleboliths. These calcifications appear to be unchanged from the prior study. Diffuse mild bladder wall thickening. Left colonic diverticulosis is seen. Post cholecystectomy. CBD upper range of normal 10 mm unchanged from February 29, 2016. Central canal spinal stenosis at L4-5. Electronically Signed by Adelfo Garza MD 07/23/2018 08:22 A
--- NOTE | 2018-07-26 07:18 | ECGEPIP ---
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
== END 2018-07-22 20:02 | disposition home or self-care (01) ==
LOC: M ED 16:07
DX: N39.0 Urinary tract infection, site not specified (principal); N13.30 Unspecified hydronephrosis; E11.9 Type 2 diabetes mellitus without complications; I11.0 Hypertensive heart disease with heart failure; J44.9 Chronic obstructive pulmonary disease, unspecified; I50.9 Heart failure, unspecified; G62.9 Polyneuropathy, unspecified; E03.9 Hypothyroidism, unspecified; K21.9 Gastro-esophageal reflux disease without esophagitis; F41.9 Anxiety disorder, unspecified; N31.9 Neuromuscular dysfunction of bladder, unspecified; Z86.73 Personal history of transient ischemic attack (TIA), and cerebral infarction without residual deficits; Z79.899 Other long term (current) drug therapy; Z79.82 Long term (current) use of aspirin; Z79.890 Hormone replacement therapy; Z99.81 Dependence on supplemental oxygen
CPT/HCPCS: 74176; 80053; 80162; 81001; 85025; 87088; 87186; 93005; 96365; 96375; 99284; J0696; J2270

== ENCOUNTER → 2018-09-20 | Outpatient (REF) | payer MEDICARE, MEDICAID ==
[~2018-09-20] MED LIST changes: +ACET30TAB PO; +ATOR80TA59 PO; +LIPI20TA PO; +MACR100C43 PO
[2018-09-20 16:05] LABS: BASO % 0.5 % (0.0-1.0); EOS # 0.1 10^3/uL (0.0-0.50); EOS % 0.8 % (0.0-3.0); HEMATOCRIT 43.9 % (36.0-47.0); HEMOGLOBIN 14.6 g/dl (12.0-15.5); LYMPH # 2.1 10^3/uL (1.5-4.5); LYMPH % 24.1 % (24.0-44.0); MEAN CORPUSCULAR HEMOGLOBIN 29.9 pg (27.0-33.0); MEAN CORPUSCULAR HGB CONC 33.3 g/dl (32.0-36.5); MEAN CORPUSCULAR VOLUME 89.8 fl (80.0-96.0); MONO # 0.5 10^3/uL (0.0-0.8); NEUTROPHILS # 5.8 10^3/uL (1.8-7.7); NEUTROPHILS % 68.2 % (36.0-66.0); PLATELET COUNT, AUTOMATED 353 10^3/uL (150-450); RED BLOOD COUNT 4.89 10^6/uL (4.00-5.40); WHITE BLOOD COUNT 8.5 10^3/uL (4.0-10.0)
[2018-09-20 16:13] LABS: APPEARANCE, URINE CLEAR (CLEAR); BACTERIA, URINE AUTO NEGATIVE (NEGATIVE); BILIRUBIN, URINE AUTO NEGATIVE (NEGATIVE); BLOOD, URINE BLOOD NEGATIVE (NEGATIVE); COLOR, URINE YELLOW (YELLOW); GLUCOSE, URINE (UA) AUTO 3+ mg/dL (NEGATIVE); KETONE, URINE AUTO NEGATIVE (NEGATIVE); LEUKOCYTE ESTERASE, URINE AUTO NEGATIVE (NEGATIVE); NITRITE, URINE AUTO NEGATIVE (NEGATIVE); PROTEIN, URINE AUTO NEGATIVE (NEGATIVE); RBC, URINE AUTO 0 /HPF (0-3); SPECIFIC GRAVITY URINE AUTO 1.007 (1.002-1.035); SQUAMOUS EPITHELIAL CELL UR AU 0 /HPF (0-6); WBC, URINE AUTO 3 /HPF (0-3)
[2018-09-20 16:21] LABS: ALBUMIN 4.8 GM/DL (3.2-5.2); BILIRUBIN,TOTAL 1.1 MG/DL (0.2-1.0); CALCIUM LEVEL 9.8 MG/DL (8.8-10.2); CHOLESTEROL RISK RATIO 2.977 (<5); CREATININE FOR GFR 1.3 MG/DL (0.55-1.30); FREE T4 1.21 NG/DL (0.76-1.46); GLOMERULAR FILTRATION RATE 42.5 (>39); POTASSIUM SERUM 4.8 MEQ/L (3.5-5.1); THYROID STIMULATING HORMONE 4.07 uIU/ML (0.358-3.740); TOTAL PROTEIN 7.9 GM/DL (6.4-8.2)
[2018-09-20 16:29] LABS: HEMOGLOBIN A1c 6.3 %
[2018-09-20 17:16] LABS: CREATININE, URINE 48.6 MG/DL; MALB URINE SIEMENS 5.9 MG/L; MAU/CREAT RATIO 12.1 MCG/MG (0.0-30.0)
== END ==
LOC: M LABDRAW1 15:41
PROVIDERS: ATTEND Family Medicine
DX: E11.9 Type 2 diabetes mellitus without complications (principal)

== ENCOUNTER 2018-12-18 14:08 | Emergency (ER) | payer MEDICARE, MEDICAID ==
[~2018-12-18] VITALS: Ht 157.5 cm; Wt 75.2 kg
[~2018-12-18 14:08] MED LIST changes: +ACET-716 PO; -ACET30TAB PO; -ASPI1TAB PO; +ASPI81TA26 PO; +HYDR-3715 PO; -NORCOTAB PO
[2018-12-18 15:52] LABS: HEMATOCRIT 37.6 % (36.0-47.0); MEAN CORPUSCULAR HGB CONC 34.6 g/dl (32.0-36.5); MEAN CORPUSCULAR VOLUME 89.7 fl (80.0-96.0); PLATELET COUNT, AUTOMATED 231 10^3/uL (150-450); RED BLOOD COUNT 4.19 10^6/uL (4.00-5.40); WHITE BLOOD COUNT 15.9 10^3/uL (4.0-10.0)
[2018-12-18] MEDS ORDERED: AMPICILLIN SOD 1 GM in D5W 50 ML IV ONE (16:45)
[2018-12-18] MEDS ORDERED: NS 1,000 ML IV ONE (17:00)
[2018-12-18] MEDS ORDERED: ACETAMINOPHEN TAB 650MG DOSE (2X325MG) PO ONE (17:00)
[2018-12-18] MEDS ORDERED: MACR100C43 PO (17:37)
[2018-12-18 17:50] VITALS: BP 198/81
--- NOTE | 2018-12-19 07:32 | REP ---
CT ABDOMEN AND PELVIS WITHOUT CONTRAST: HISTORY: Rule out kidney stones. COMPARISON: 07/22/2018. The patient is status-post cholecystectomy. Calcifications are present in the spleen. A calcification is present in the right kidney. There is mild dilatation of the renal collecting systems and proximal ureters unchanged compared to the previous study. There is no ureteral calculus. The liver, pancreas, and adrenal glands are normal in appearance. There is no mass, adenopathy or free fluid. A small 1.6 cm fat containing ventral abdominal hernia is present. The visualized lungs are clear. Diverticula are present in the descending colon. The patient is status-post hysterectomy. The urinary bladder wall is thickened. Degenerative change is present in the spine. IMPRESSION:1. The patient is status-post cholecystectomy. 2. Right nephrolithiasis. 3. There is mild dilatation of the renal collecting systems and proximal ureters unchanged compared to the previous study. There is no ureteral calculus. 4. Diverticulosis. 5. The patient is status-post hysterectomy. 6. The urinary bladder wall is thickened. This may represent inflammation. Electronically Signed by Davey Estrella MD 12/19/2018 08:28 A
== END 2018-12-18 17:51 | disposition home or self-care (01) ==
LOC: M ED 14:08
DX: N39.41 Urge incontinence (principal); N39.0 Urinary tract infection, site not specified; E11.9 Type 2 diabetes mellitus without complications; I48.91 Unspecified atrial fibrillation; I25.10 Atherosclerotic heart disease of native coronary artery without angina pectoris; I50.9 Heart failure, unspecified; I25.2 Old myocardial infarction; I10 Essential (primary) hypertension; E78.5 Hyperlipidemia, unspecified; I08.0 Rheumatic disorders of both mitral and aortic valves; Z87.440 Personal history of urinary (tract) infections; Z87.448 Personal history of other diseases of urinary system; Z95.1 Presence of aortocoronary bypass graft; Z87.891 Personal history of nicotine dependence; K57.30 Diverticulosis of large intestine without perforation or abscess without bleeding; Z79.82 Long term (current) use of aspirin; Z79.4 Long term (current) use of insulin; Z79.899 Other long term (current) drug therapy

== ENCOUNTER 2019-02-24 16:24 | Emergency (ER) | payer MEDICARE, MEDICAID ==
[~2019-02-24] VITALS: Ht 157.5 cm; Wt 81.4 kg
[~2019-02-24 16:24] MED LIST changes: +CYAN100049 PO; -FENO48TA2 PO; +FENO48TA7 PO; +OMEP1CAP73 PO; -OMEP20CA3 PO; -VITA10002 PO
[2019-02-24] MEDS ORDERED: CIPR500T3 (18:23)
[2019-02-24] MEDS ORDERED: LISI-1046 (18:23)
[2019-02-24] MEDS ORDERED: NS 1,000 ML IV ONE (18:30)
[2019-02-24] MEDS ORDERED: ACETAMINOPHEN 325 MG TAB PO ONE (18:30)
--- NOTE | 2019-02-24 19:46 | REPVR ---
EXAM: US Duplex Left Lower Extremity Veins, Limited EXAM DATE/TIME: 02/24/2019 7:04 PM CLINICAL HISTORY: 74 years old, female; Pain; Leg, lower; Left; Additional info: Left thigh pain TECHNIQUE: Imaging protocol: Real-time Duplex ultrasound of the Left Lower Extremity with 2-D mckeon scale, color Doppler flow and spectral waveform analysis with image documentation. Limited exam focused on the left lower extremity veins. COMPARISON: No relevant prior studies available. FINDINGS: Left deep veins: Unremarkable. The common femoral, femoral, proximal profunda femoral and popliteal veins are patent without thrombus. Normal Doppler waveforms. Normal compressibility and/or augmentation response. Left superficial veins: Unremarkable. Saphenofemoral junction is patent without thrombus. Soft tissues: Unremarkable. IMPRESSION: No evidence of deep venous thrombus in the left lower extremity. Electronically signed by: Mel Reveles On 02/24/2019 19:46:16 PM
[2019-02-24] MEDS ORDERED: ISOVUE-370 76% 100ML VIAL (Q9967) As Ordered ONE (20:42)
[2019-02-24 20:51] LABS: BASO # 0.1 10^3/uL (0.0-0.2); BASO % 0.4 % (0.0-1.0); EOS # 0.3 10^3/uL (0.0-0.50); HEMATOCRIT 40.2 % (36.0-47.0); HEMOGLOBIN 13.7 g/dl (12.0-15.5); LYMPH # 3.2 10^3/uL (1.5-4.5); MEAN CORPUSCULAR HEMOGLOBIN 30.5 pg (27.0-33.0); MEAN CORPUSCULAR HGB CONC 34.1 g/dl (32.0-36.5); MEAN CORPUSCULAR VOLUME 89.5 fl (80.0-96.0); MONO # 1.1 10^3/uL (0.0-0.8); MONO % 7.6 % (0.0-5.0); NEUTROPHILS # 9.2 10^3/uL (1.8-7.7); NEUTROPHILS % 66.5 % (36.0-66.0); PLATELET COUNT, AUTOMATED 275 10^3/uL (150-450); RED BLOOD COUNT 4.49 10^6/uL (4.00-5.40); WHITE BLOOD COUNT 13.8 10^3/uL (4.0-10.0)
[2019-02-24 21:04] LABS: INR 1.05; PARTIAL THROMBOPLASTIN TIME 24.7 SECONDS (25.0-38.4); PROTHROMBIN TIME 13.4 SECONDS (11.8-14.0)
[2019-02-24 21:06] LABS: ALBUMIN 4.7 GM/DL (3.2-5.2); BILIRUBIN,DIRECT 0.2 MG/DL (0.0-0.2); BILIRUBIN,TOTAL 0.8 MG/DL (0.2-1.0); TOTAL PROTEIN 8.5 GM/DL (6.4-8.2)
--- NOTE | 2019-02-24 21:55 | REPVR ---
EXAM: CT Abdomen and Pelvis With Contrast EXAM DATE/TIME: 02/24/2019 8:43 PM CLINICAL HISTORY: 74 years old, female; Abdominal pain; Localized; Right; Additional info: Right abd pain, bladder stim, polyuria TECHNIQUE: Imaging protocol: Axial computed tomography images of the abdomen and pelvis with intravenous contrast. Coronal and sagittal reformatted images were created and reviewed. Radiation optimization: All CT scans at this facility use at least one of these dose optimization techniques: automated exposure control; mA and/or kV adjustment per patient size (includes targeted exams where dose is matched to clinical indication); or iterative reconstruction. Contrast material: ISOVUE 370;Contrast volume: 100 ml;Contrast route: IV; COMPARISON: CT ABD PELVIS W/O CONTRAST 12/18/2018 3:38 PM FINDINGS: Liver: No discreet mass. Gallbladder and bile ducts: The gallbladder is surgically absent. Stable dilatation the common bile duct. No discrete obstructing lesion identified. Pancreas: Prominence of the main pancreatic duct. A discrete obstructing lesion is not identified. Spleen: A few scattered calcifications again noted throughout the spleen. Adrenals: No mass. Kidneys and ureters: Again seen is mild dilatation of the right renal collecting system and ureter. A sizable obstructing calculi is not identified. Nonobstructing right-sided nephrolithiasis. Stomach and bowel: Descending and sigmoid colon diverticulosis. No CT evidence of diverticulitis. Appendix: No evidence of appendicitis. Intraperitoneal space: No free air. No significant fluid collection. Vasculature: Advanced aortoiliac and branch vessel atherosclerotic disease. 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 Lymph nodes: No enlarged lymph nodes. Bladder: Patient is status post bladder stimulator device placement with leads seen entering the pelvis posteriorly at the S3-S4 level and terminating in the deep left pelvis. No significant bladder wall thickening appreciated. Reproductive: Patient is post hysterectomy. Bones/joints: No grossly displaced fractures or dislocations. Degenerative changes of the lumbosacral spine. Soft tissues: Stable small ventral hernia. IMPRESSION: No bowel obstruction, free intraperitoneal air/fluid or sizable inflammatory collections noted. Multiple other ancillary findings are as described above. Please correlate clinically. Electronically signed by: Dandre Sinha On 02/24/2019 21:54:50 PM
--- NOTE | 2019-02-24 22:38 | REPVR ---
EXAM: CT Lumbar Spine Without Contrast EXAM DATE/TIME: 02/24/2019 8:43 PM CLINICAL HISTORY: 74 years old, female; Other: Pain in L leg; Additional info: PT tender, L leg pain, lumbar laminectomy TECHNIQUE: Imaging protocol: Computed tomography images of the lumbar spine without contrast. Coronal and sagittal reformatted images were created and reviewed. Radiation optimization: All CT scans at this facility use at least one of these dose optimization techniques: automated exposure control; mA and/or kV adjustment per patient size (includes targeted exams where dose is matched to clinical indication); or iterative reconstruction. COMPARISON: No relevant prior studies available. FINDINGS: Vertebrae: There is no vertebral fracture. The lumbar vertebra maintain normal height and alignment. There is no fracture of the posterior elements. There is no focal osseous lesion. L1-L2: No disc herniation. No spinal stenosis. No neural foraminal narrowing. L2-L3: Small central osteophyte. No central or foraminal stenosis. L3-L4: Mild spondylosis. There is a disc bulge. There is advanced facet arthropathy and hypertrophy of the ligamentum flavum. These factors result in severe central spinal stenosis. There is severe bilateral foraminal stenosis. L4-L5: L4-5: Disc bulge and facet and ligament hypertrophy resulting in severe central and right foraminal stenosis. There is moderate left foraminal stenosis. L5-S1: Right laminotomy defect. Mild disc bulge and facet arthropathy with severe bilateral foraminal stenosis. Intraperitoneal space: Additional findings previously described on CT abdomen and pelvis. IMPRESSION: 1. No fracture. 2. Disc disease, facet and ligament hypertrophy resulting in severe central and foraminal stenosis at L3-L4 and L4-L5. Electronically signed by: Adalid Zurita On 02/24/2019 22:38:13 PM
--- NOTE | 2019-02-24 22:45 | REPVR ---
EXAM: CT Thoracic Spine Without Contrast EXAM DATE/TIME: 02/24/2019 8:43 PM CLINICAL HISTORY: 74 years old, female; Other: Pain in L leg; Additional info: PT tender, L leg pain, lumbar laminectomy TECHNIQUE: Imaging protocol: Computed tomography images of the thoracic spine without contrast. Coronal and sagittal reformatted images were created and reviewed. Radiation optimization: All CT scans at this facility use at least one of these dose optimization techniques: automated exposure control; mA and/or kV adjustment per patient size (includes targeted exams where dose is matched to clinical indication); or iterative reconstruction. COMPARISON: No relevant prior studies available. FINDINGS: Vertebrae: There is no fracture. Vertebral bodies maintain their height and alignment. There is no focal osseous lesion. There is no fracture the posterior elements. Discs/Spinal canal/Neural foramina: Calcifications are present in the ligamentum flavum posteriorly from T3-T4 to T5-T6 without spinal stenosis. There is no central spinal stenosis in the thoracic spine. There is no foraminal stenosis. Disc spaces are preserved. No significant disc disease. Soft tissues: Unremarkable. Vasculature: Left subclavian arterial stent incidentally noted. It is patent. IMPRESSION: 1. No fracture. 2. No spinal stenosis. Electronically signed by: Adalid Zurita On 02/24/2019 22:45:29 PM
[2019-02-24 23:11] VITALS: BP 188/82
--- NOTE | 2019-02-26 21:05 | ED PDOC ---
Post-Departure Follow-Up dr gonzalez faxed formal report of ct ls spine and ct abd/p for fu Jason Dasilva MD Feb 26, 2019 21:05
[2019-03-22] MEDS ORDERED: DIGO0.123 PO (04:51)
== END 2019-02-24 23:26 | disposition home or self-care (01) ==
LOC: M ED 16:24
DX: R35.8 Other polyuria (principal); M54.6 Pain in thoracic spine; M79.652 Pain in left thigh; I10 Essential (primary) hypertension; J44.9 Chronic obstructive pulmonary disease, unspecified; E78.5 Hyperlipidemia, unspecified; E03.9 Hypothyroidism, unspecified; Z86.73 Personal history of transient ischemic attack (TIA), and cerebral infarction without residual deficits; Z87.440 Personal history of urinary (tract) infections; Z87.442 Personal history of urinary calculi; Z87.891 Personal history of nicotine dependence; Z79.899 Other long term (current) drug therapy; Z79.82 Long term (current) use of aspirin; Z79.4 Long term (current) use of insulin
CPT/HCPCS: 36415; 72128; 72131; 74177; 80047; 80076; 81001; 83605; 83690; 85025; 85610; 85730; 93971; 99284; Q9967

== ENCOUNTER 2019-03-21 23:55 | Inpatient (IN) | payer MEDICARE, MEDICAID ==
[~2019-03-21] VITALS: Ht 157.5 cm; Wt 75.9 kg
[~2019-03-21 23:55] MED LIST changes: +CIPR500T3; +FENO48TA2 PO; -FENO48TA7 PO; +LISI-1046; -OMEP1CAP73 PO; +OMEP20CA4 PO
--- NOTE | 2019-03-22 01:07 | REPVR ---
EXAM: CT Head Without Contrast EXAM DATE/TIME: 03/22/2019 12:22 AM CLINICAL HISTORY: 74 years old, female; Altered mental status/memory loss; Confusion or disorientation TECHNIQUE: Imaging protocol: Computed tomography of the head without contrast. Radiation optimization: All CT scans at this facility use at least one of these dose optimization techniques: automated exposure control; mA and/or kV adjustment per patient size (includes targeted exams where dose is matched to clinical indication); or iterative reconstruction. COMPARISON: No relevant prior studies available. FINDINGS: Evaluation of the inferior temporal lobes is compromised by beam hardening artifacts. There is no acute intracranial hemorrhage, extra axial fluid collection or hematoma, nor midline shift or herniation. There is parenchymal volume loss, appropriate for age related involutional change. There is slight prominence of the ventricles, commensurate with degree of parenchymal volume loss. No evidence of pneumocephalus. There is intracranial atherosclerosis. No asymmetric vessel density is seen to suggest an acute large vessel occlusion. Mild scattered periventricular and deep white matter foci of hypoattenuation are seen, left slightly greater than right which could be related to white matter disease or microvascular ischemic changes of indeterminate acuity. This can be further evaluated by MRI, as clinically appropriate. 3 mm ovoid hypodensity seen along the right lentiform nucleus which may represent a lacunar infarct of indeterminate acuity or prominent perivascular space. No CT findings are seen at the current time to suggest changes of acute territorial vascular infarction. Note is made however, that CT changes, may lag clinical findings in acute CVA. If clinically indicated, consideration could be given to MRI with diffusion weighted imaging, due to its greater sensitivity, for detection of acute ischemic change. Intracranial calcifications are incidentally noted. No pericranial scalp hematoma is seen. Ocular postoperative changes are noted. No acute cranial vault fracture is seen. No fluid is seen within the visualized paranasal sinuses or mastoid air cells. IMPRESSION: No evidence of acute territorial major vessel infarct, mass effect, or hemorrhage. 3 mm hypodensity right lentiform nucleus may represent a tiny lacunar infarct of indeterminate acuity. Mild white matter changes may be related to microvascular ischemic or white matter disease, of indeterminate acuity. Age-related involutional changes. Findings discussed above in detail. Electronically signed by: Mariano Rogers On 03/22/2019 01:07:39 AM
[2019-03-22 01:16] LABS: BASO % 0.1 % (0.0-1.0); HEMATOCRIT 33.4 % (36.0-47.0); HEMOGLOBIN 11.7 g/dl (12.0-15.5); LYMPH # 0.6 10^3/uL (1.5-5.0); LYMPH % 2.9 % (24.0-44.0); MEAN CORPUSCULAR HEMOGLOBIN 31.5 pg (27.0-33.0); MONO % 9.7 % (0.0-5.0); NEUTROPHILS # 18.8 10^3/uL (1.5-8.5); NEUTROPHILS % 86.1 % (36.0-66.0); PLATELET COUNT, AUTOMATED 189 10^3/uL (150-450); RED BLOOD COUNT 3.71 10^6/uL (4.00-5.40); WHITE BLOOD COUNT 21.9 10^3/uL (4.0-10.0)
[2019-03-22 01:21] LABS: MONO # 2.1 10^3/uL (0.0-0.8)
[2019-03-22 01:52] LABS: ALBUMIN 3.6 GM/DL (3.2-5.2); ALT/SGPT 27 U/L (12-78); BILIRUBIN,DIRECT 0.6 MG/DL (0.0-0.2); BILIRUBIN,TOTAL 1.7 MG/DL (0.2-1.0); BLOOD UREA NITROGEN 22 MG/DL (7-18); CALCIUM LEVEL 9.2 MG/DL (8.8-10.2); CARBON DIOXIDE LEVEL 28 MEQ/L (21-32); CHLORIDE LEVEL 98 MEQ/L (98-107); CK-MB VALUE MASS 1.9 NG/ML (<3.6); CPK CREATINE PHOSPHOKINASE 374 U/L (26-192); CREATININE FOR GFR 1.36 MG/DL (0.55-1.30); ETHYL ALCOHOL (ETHANOL) < 0.003 % (0.000-0.010); GLOMERULAR FILTRATION RATE 40.2 (>39); GLUCOSE, FASTING 225 MG/DL (70-100); MB/CK RELATIVE INDEX 0.51 (< OR =4); POTASSIUM SERUM 3.9 MEQ/L (3.5-5.1); SODIUM LEVEL 135 MEQ/L (136-145); TOTAL PROTEIN 6.8 GM/DL (6.4-8.2); TROPONIN I 0.41 NG/ML (< 0.10)
[2019-03-22 02:10] LABS: AMPHETAMINES LEVEL URINE NEGATIVE (NEGATIVE); BARBITURATES URINE NEGATIVE (NEGATIVE); BENZODIAZEPINES URINE NEGATIVE (NEGATIVE); CANNABINOIDS URINE NEGATIVE (NEGATIVE); COCAINE METABOLITE URINE NEGATIVE (NEGATIVE); METHADONE URINE NEGATIVE (NEGATIVE); OPIATES URINE NEGATIVE (NEGATIVE); PHENCYCLIDINE URINE NEGATIVE (NEGATIVE)
[2019-03-22] MEDS ORDERED: ISOVUE-370 76% 100ML VIAL (Q9967) As Ordered ONE (02:52)
--- NOTE | 2019-03-22 04:20 | REPVR ---
EXAM: CT Abdomen and Pelvis With Contrast EXAM DATE/TIME: 03/22/2019 2:35 AM CLINICAL HISTORY: 74 years old, female; Abdominal pain; Generalized; Additional info: Gen abd pain TECHNIQUE: Imaging protocol: Computed tomography of the abdomen and pelvis with intravenous contrast. Radiation optimization: All CT scans at this facility use at least one of these dose optimization techniques: automated exposure control; mA and/or kV adjustment per patient size (includes targeted exams where dose is matched to clinical indication); or iterative reconstruction. Contrast material: ISO; Contrast volume: 100 ml; Contrast route: AC; COMPARISON: CT ABD/PEL W/IV CONTRAST ONLY 02/24/2019 8:44 PM FINDINGS: Lungs: Mild bibasilar atelectasis. Granuloma in the left lung base. Heart: Cardiomegaly. Liver: Liver is enlarged with diffuse fatty infiltration. Gallbladder and bile ducts: Status post cholecystectomy. Pancreas: Mild atrophy of the pancreas. Spleen: Splenic granulomas. Adrenals: Normal. No mass. Kidneys and ureters: 1 mm non obstructing calcification in the upper pole of the right kidney. Mild to moderate left perinephric stranding with areas of low attenuation concerning for pyelonephritis. No stones or hydronephrosis. Stomach and bowel: Diverticulosis without CT evidence of diverticulitis. No bowel dilatation or obstruction. Appendix: Normal appendix. Intraperitoneal space: Unremarkable. No free air. No significant fluid collection. Vasculature: Atherosclerosis of the aorta and its branches. Lymph nodes: Unremarkable. No enlarged lymph nodes. Bladder: Urinary bladder is not well distended and well appears to be thickened likely secondary to nondistention. Reproductive: Unremarkable as visualized. Bones/joints: Diffuse demineralization of the bones with degenerative changes. Mild dextroscoliosis of the lumbar spine. Soft tissues: Unremarkable. IMPRESSION: Mild to moderate left perinephric stranding with areas of low attenuation concerning for pyelonephritis. No stones or hydronephrosis. Electronically signed by: Ashtyn Irene On 03/22/2019 04:20:10 AM
[2019-03-22] MEDS ORDERED: SPIR1CAP INH (04:51)
[2019-03-22] MEDS ORDERED: LISI-1046 PO (04:51)
[2019-03-22] MEDS ORDERED: ATOR80TA59 PO (04:51)
[2019-03-22] MEDS ORDERED: VICT18IN SC (04:51)
[2019-03-22] MEDS ORDERED: DIGO0.12 PO (04:51)
[2019-03-22] MEDS ORDERED: CIPR500T3 PO (04:51)
[2019-03-22] MEDS ORDERED: SYNT88TA2 PO (04:51)
[2019-03-22] MEDS ORDERED: TORS20TA2 PO (04:51)
[2019-03-22] MEDS ORDERED: GLUCAGON FOR INJ 1 MG VIAL (J1610) SC PRN (05:15)
[2019-03-22] MEDS ORDERED: GLUCOSE 4 GM CHEW TABLET PO PRN (05:15)
[2019-03-22] MEDS ORDERED: DEXTROSE 50% 50 ML SYRINGE IV PRN (05:15)
--- NOTE | 2019-03-22 05:15 | HPEPDOC ---
General Date of Admission Mar 22, 2019 at 05:01 Date of Service: Mar 22, 2019 Attending Physician: GEOFF COLLINS DO Chief Complaint The patient is a 74-year-old female admitted with a reason for visit of Altered Mental Status, Uti. Source: Patient, Family Exam Limitations: No limitations Timing/Duration: 24 hours Severity: Mild Associated Symptoms: Fever, Chills, Loss of appetite, Malaise, Nausea, Vomiting History of Present Illness Patient is 69 years old female with past medical history of atrial fibrillation not on the anticoagulation due to remote history of bleeding according to family, diabetes, CHF, heart stents, COPD presented hospital after few episodes of vomiting and fever. Patient stated that today since morning she had a few episodes of nausea and vomiting, also according to family members she was confused. She had a fever or 101.9 associated with chills. Patient denies any diarrhea. She stated that she has a cough but no sputum. In emergency room patient was found to have white blood count of 21.9. Urine culture showed multiple leukocytes. Abdominal CAT scan was positive for mild to moderate left perinephric stranding with areas of low attenuation concerning for pyelonephritis. No stones or hydronephrosis. Home Medications Scheduled Aspirin (Aspirin EC) 81 Mg Tab, 81 MG PO DAILY, (Reported) Atorvastatin Calcium (Atorvastatin Calcium) 80 Mg Tablet, 80 MG PO QHS, (Reported) Carvedilol (Coreg) 12.5 Mg Tab, 12.5 MG PO BID, (Reported) Ciprofloxacin HCl (Ciprofloxacin HCl) 500 Mg Tablet, 500 MG PO BID, (Reported) Cyanocobalamin (Vitamin B-12) (Vitamin B-12) 1,000 Mcg Tab, 1,000 MCG PO DAILY, (Reported) Digoxin (Digoxin) 125 Mcg Tablet, 125 MCG PO DAILY, (Reported) Ergocalciferol (Vitamin D2) (Drisdol) 50,000 Unit Cap, 50,000 UNIT PO Q2WK, (Reported) TAKES ON THE AND TH OF EACH MONTH Ferrous Sulfate (Ferrous Sulfate) 325 Mg Tab, 325 MG PO DAILY, (Reported) Glipizide (Glipizide) 5 Mg Tab, 5 MG PO BID, (Reported) Insulin Glargine,Hum.rec.anlog (Basaglar Kwikpen U-100) 100 Unit/Ml Inj, 10 UNIT SC QHS, (Reported) Levothyroxine Sodium (Synthroid) 88 Mcg Tablet, 88 MCG PO DAILY, (Reported) Liraglutide (Victoza 2-Shadi) 0.6 Mg/0.1 Ml Pen.injctr, 1.8 MG SC QHS, (Reported) Lisinopril (Lisinopril) 2.5 Mg Tablet, 2.5 MG PO QHS, (Reported) Memantine HCl (Namenda) 10 Mg Tab, 10 MG PO BID, (Reported) Omeprazole (Omeprazole) 20 Mg Cap, 20 MG PO DAILY, (Reported) Potassium Chloride (Klor-Con M10) 10 Meq Tabcr, 30 MEQ PO BID, (Reported) Sertraline HCl (Sertraline HCl) 100 Mg Tab, 150 MG PO QHS, (Reported) Spironolactone (Spironolactone) 25 Mg Tab, 25 MG PO DAILY, (Reported) Tiotropium Blue Eye (Spiriva) 18 Mcg Cap.w.dev, 1 INHALATION INH DAILY, (Reported) Torsemide (Torsemide) 20 Mg Tab, 40 MG PO DAILY, (Reported) Allergies Coded Allergies: No Known Allergies (Unverified , 12/18/18) Past Medical History Medical History Atrial fibrillation, heart stents, diabetes, hypotonic bladder with stimulator, COPD, cholecystectomy Surgical History Cholecystectomy Social History * Smoker: former Smoker Alcohol: Denies Drugs: denies Psychosocial History: No pertinent psych hx A-FIB/CHADSVASC A-FIB History Current/History of A-Fib/PAF?: Yes Current PO Anticoag Therapy: No Review of Systems Constitutional: Reports: Chills, Fever, Lethargy Eyes: Denies: Pain, Vision change ENT: Denies: Head Aches, Dysphagia Skin: Denies: Rash, Lesions Pulmonary: Reports: Cough; Denies: Dyspnea, Pleuritic Chest Pain Cardiovascular: Denies: Chest Pain, Palpitations, Orthopnea Gastrointestinal: Reports: Nausea, Vomiting; Denies: Diarrhea Genitourinary: Reports: Dysuria, Frequency Hematologic: Denies: Bruising, Bleeding Excessively Endocrine: Denies: Polydipsia, Polyphagia Musculoskeletal: Denies: Neck Pain, Back Pain Neurological: Denies: Weakness Psych: Reports: Mood Normal Physical Examination General Exam: Positive: Alert, Cooperative, Mild Distress Eye Exam: Positive: PERRLA ENT Exam: Positive: Atraumatic Neck Exam: Positive: Supple; Negative: JVD Chest Exam: Positive: Clear to auscultation Heart Exam: Positive: Irregular Rhythm Telemetry: Positive: Atrial fibrillation Abdomen Exam: Positive: Normal bowel sounds Extremity Exam: Negative: Clubbing, Cyanosis Skin Exam: Negative: Nl turgor and temperature Neuro Exam: Positive: Cranial Nerves 3-12 NL Psych Exam: Positive: Mental status NL Vital Signs Vital Signs Date Time Temp Pulse Resp B/P (MAP) Pulse Ox O2 Delivery O2 Flow Rate FiO2 03/22/19 04:15 81 110/56 (74) 95 03/22/19 00:05 97.1 17 Room Air Laboratory Data Labs 24H Laboratory Tests 2 03/22/19 01:05: Immature Granulocyte % (Auto) 1.2, White Blood Count 21.9H, Red Blood Count 3.71L, Hemoglobin 11.7L, Hematocrit 33.4L, Mean Corpuscular Volume 90.0, Mean Corpuscular Hemoglobin 31.5, Mean Corpuscular Hemoglobin Concent 35.0, Red Cell Distribution Width 14.6H, Platelet Count 189, Neutrophils (%) (Auto) 86.1H, Lymphocytes (%) (Auto) 2.9L, Monocytes (%) (Auto) 9.7H, Eosinophils (%) (Auto) 0.0, Basophils (%) (Auto) 0.1, Neutrophils # (Auto) 18.8H, Lymphocytes # (Auto) 0.6L, Monocytes # (Auto) 2.1H, Eosinophils # (Auto) 0.0, Basophils # (Auto) 0.0, Nucleated Red Blood Cells % (auto) 0.0, Anion Gap 9, Glomerular Filtration Rate 40.2, Calcium Level 9.2, Aspartate Amino Transf (AST/SGOT) 24, Alanine Aminotransferase (ALT/SGPT) 27, Alkaline Phosphatase 113, Total Bilirubin 1.7H, Direct Bilirubin 0.6H, Total Creatine Kinase 374H, Creatine Kinase MB 1.9, Creatine Kinase MB Relative Index 0.51, Troponin I 0.41H, Total Protein 6.8, Albumin 3.6, Albumin/Globulin Ratio 1.13, Thyroid Stimulating Hormone (TSH) 7.310H, Ethyl Alcohol Level < 0.003 03/22/19 01:38: Urine Color YELLOW, Urine Appearance TURBIDH, Urine pH 5.0, Urine Specific Glade 1.010, Urine Protein 2+H, Urine Glucose (UA) 2+H, Urine Ketones NEGATIVE, Urine Blood 2+H, Urine Nitrite NEGATIVE, Urine Bilirubin NEGATIVE, Urine Urobilinogen 0.2, Urine Leukocyte Esterase 3+H, Urine WBC (Auto) TNTCH, Urine RBC (Auto) 5H, Urine Hyaline Casts (Auto) 7, Urine Bacteria (Auto) 3+H, Urine Squamous Epithelial Cells 2, Urine Sperm (Auto) , Urine Amphetamines Screen NEGATIVE, Urine Benzodiazepines Screen NEGATIVE, Urine Opiates Screen NEGATIVE, Urine Methadone Screen NEGATIVE, Urine Barbiturates Screen NEGATIVE, Urine Phencyclidine Screen NEGATIVE, Urine Cocaine Metabolite Screen NEGATIVE, Urine Cannabinoids Screen NEGATIVE CBC/BMP Laboratory Tests 03/22/19 01:05 Red Blood Count 3.71 L, Mean Corpuscular Volume 90.0, Mean Corpuscular Hemoglobin 31.5, Mean Corpuscular Hemoglobin Concent 35.0, Red Cell Distribution Width 14.6 H, Neutrophils (%) (Auto) 86.1 H, Lymphocytes (%) (Auto) 2.9 L, Monocytes (%) (Auto) 9.7 H, Eosinophils (%) (Auto) 0.0, Basophils (%) (Auto) 0.1, Neutrophils # (Auto) 18.8 H, Lymphocytes # (Auto) 0.6 L, Monocytes # (Auto) 2.1 H, Eosinophils # (Auto) 0.0, Basophils # (Auto) 0.0 Microbiology Microbiology 03/22/19 Blood Culture, Received Pending 03/22/19 Blood Culture, Received Pending 03/22/19 Urine Culture, Received Pending Assessment/Plan Patient is 69 years old female with past medical history of atrial fibrillation not on the anticoagulation due to remote history of bleeding according to family, diabetes, CHF, heart stents, COPD presented hospital after few episodes of vomiting and fever. Patient stated that today since morning she had a few ep isodes of nausea and vomiting, also according to family members she was confused. She had a fever or 101.9 associated with chills. Patient denies any diarrhea. She stated that she has a cough but no sputum. In emergency room patient was found to have white blood count of 21.9. Urine culture showed m ultiple leukocytes. Abdominal CAT scan was positive for mild to moderate left perinephric stranding with areas of low attenuation concerning for pyelonephritis. No stones or hydronephrosis. Problems (1) Pyelonephritis Status: Acute Problem Text: Patient has leukocytosis, imaging suggest possible left pyelonephritis, UA shows multiple leukocytes Ceftriaxone IV Gentle IV fluid Urine culture, blood culture Lactic acid, pro-calcitonin (2) UTI (urinary tract infection) Status: Acute Problem Text: See above (3) Altered mental status Status: Acute Problem Text: Resolved on admission Secondary to UTI CT of head did not show acute stroke (4) Elevated troponin Status: Acute Problem Text: Most likely demand ischemia Continue to monitor troponin No new ischemic changes on the EKG (5) Atrial fibrillation Problem Text: Rate controlled Continue home meds Xarelto 20 mg started Plan / VTE VTE Prophylaxis Ordered?: Yes GEOFF COLLINS DO Mar 22, 2019 05:15
--- NOTE | 2019-03-22 05:49 | ECGEPIP ---
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
[2019-03-22 06:44] VITALS: BP 143/81
[2019-03-22] MEDS: LEVOTHYROXINE 88MCG TABLET (0.088 MG) PO SCH (07:17)
[2019-03-22] MEDS: cefTRIAXone SOD 1 GM in D5W MINI-BAG PLUS 50 ML IV SCH ×2 (07:30→18:03)
[2019-03-22] MEDS: HumaLOG INSULIN (NovoLOG) PER UNIT SC SCH ×3 (08:23→18:03)
[2019-03-22] MEDS: ACETAMINOPHEN TAB 650MG DOSE (2X325MG) PO PRN ×3 (08:24→23:17)
[2019-03-22] MEDS: TORSEMIDE 20 MG TAB PO SCH (08:24)
[2019-03-22] MEDS: CYANOCOBALAMIN 500 MCG TAB PO SCH (08:25)
[2019-03-22] MEDS: FERROUS SULFATE 325MG TAB PO SCH (08:25)
[2019-03-22] MEDS: MEMANTINE 5MG TABLET (NAMENDA) PO SCH ×2 (08:25→20:40)
[2019-03-22] MEDS: SPIRONOLACTONE 25 MG TAB PO SCH (08:25)
[2019-03-22] MEDS: RIVAROXABAN 20 MG TAB (XARELTO) PO SCH (08:25)
[2019-03-22] MEDS: ASPIRIN 81 MG ENTERIC TAB PO SCH (08:25)
[2019-03-22] MEDS: OMEPRAZOLE 20 MG CAP PO SCH (08:25)
[2019-03-22] MEDS: DIGOXIN 0.125 MG TAB PO SCH (08:26)
[2019-03-22] MEDS: CARVedilol 12.5 MG TAB PO SCH ×2 (08:26→23:15)
--- NOTE | 2019-03-22 09:17 | REP ---
CHEST X-RAY: Two views. HISTORY: Altered mental status. Comparison chest x-ray July 23, 2017. FINDINGS: The patient is status post prior median sternotomy. EKG electrodes are seen. Heart is mildly prominent unchanged. Pulmonary vasculature is cephalized. The pleural angles are sharp. No infiltrate is seen. Vascular calcification is noted. Interstitial markings are very slightly prominent unchanged. There are calcifications in the right axillary soft tissues. IMPRESSION: Mild cardiomegaly and cephalization. No acute disease. Electronically Signed by Adelfo Garza MD 03/22/2019 09:22 A
[2019-03-22 14:00] VITALS: BP 102/42
[2019-03-22] MEDS: TIOTROPIUM INHALER/CAPSULE (SPIRIVA) INH SCH (14:33)
[2019-03-22] MEDS ORDERED: PIPERACILLIN IV SCH (19:15)
[2019-03-22] MEDS ORDERED: FLUID PLACE HOLDER IV SCH (19:15)
[2019-03-22] MEDS ORDERED: TAZOBACTAM SOD IV SCH (19:15)
[2019-03-22 20:00] VITALS: BP 107/56
[2019-03-22 20:32] VITALS: BP 113/57
[2019-03-22] MEDS: PIPERACILLIN/TAZOBACTAM SOD 3.375 GM in D5W MINI-BAG PLUS 50 ML IV SCH (20:38)
[2019-03-22] MEDS: SERTRALINE HCL 50 MG TAB PO SCH (20:39)
[2019-03-22] MEDS: ATORVASTATIN 20 MG TAB PO SCH (20:40)
--- NOTE | 2019-03-22 21:29 | REPVR ---
EXAM: XR Chest, 1 View EXAM DATE/TIME: 03/22/2019 8:34 PM CLINICAL HISTORY: 74 years old, female; Shortness of breath; Additional info: SOB TECHNIQUE: Imaging protocol: XR of the chest Views: 1 view. COMPARISON: CR Chest, 2 view PA, Lat 03/22/2019 1:04 AM FINDINGS: Lungs: There is again mild coarsening of the interstitium. No new focal consolidation. Pleural space: Unremarkable. No pleural effusion. No pneumothorax. Heart/Mediastinum: The cardiomediastinal silhouette is fairly stable in appearance. Bones/joints: Median sternotomy wires are again present. Degenerative changes again involve the spine. IMPRESSION: Stable radiographic appearance of the chest since earlier the same day. Electronically signed by: Jose Rick On 03/22/2019 21:28:37 PM
[2019-03-22] MEDS ORDERED: ONDANSETRON 4MG/2ML VIAL (J2405) IV PRN (22:45)
[2019-03-22 23:14] VITALS: BP 121/58
[2019-03-22] MEDS: LISINOPRIL *2.5 MG* TAB PO SCH (23:16)
[2019-03-22] MEDS: LEVEMIR (INSULIN DETEMIR) 1 UNITS/0.01ML SC SCH (23:16)
[2019-03-23 00:45] VITALS: BP 82/42
[2019-03-23] MEDS ORDERED: ACETAMINOPHEN 650 MG SUPP PR ONE (01:00)
[2019-03-23] MEDS ORDERED: NS 500 ML IV ONE (01:00)
[2019-03-23] MEDS: PIPERACILLIN/TAZOBACTAM SOD 3.375 GM in D5W MINI-BAG PLUS 50 ML IV SCH ×4 (02:55→20:31)
[2019-03-23 03:45] VITALS: BP 120/68
[2019-03-23 06:00] VITALS: BP 124/60
[2019-03-23 06:42] LABS: HEMATOCRIT 28.8 % (36.0-47.0); HEMOGLOBIN 9.8 g/dl (12.0-15.5); MEAN CORPUSCULAR HEMOGLOBIN 30.4 pg (27.0-33.0); MEAN CORPUSCULAR VOLUME 89.4 fl (80.0-96.0); PLATELET COUNT, AUTOMATED 182 10^3/uL (150-450); RED BLOOD COUNT 3.22 10^6/uL (4.00-5.40); WHITE BLOOD COUNT 18.3 10^3/uL (4.0-10.0)
[2019-03-23] MEDS: LEVOTHYROXINE 88MCG TABLET (0.088 MG) PO SCH (06:53)
[2019-03-23 07:08] LABS: CALCIUM LEVEL 8.7 MG/DL (8.8-10.2); CREATININE FOR GFR 1.86 MG/DL (0.55-1.30); FREE T4 1.09 NG/DL (0.76-1.46); MAGNESIUM LEVEL 1.9 MG/DL (1.8-2.4); POTASSIUM SERUM 3.1 MEQ/L (3.5-5.1); THYROID STIMULATING HORMONE 5.47 uIU/ML (0.358-3.740)
[2019-03-23] MEDS: TIOTROPIUM INHALER/CAPSULE (SPIRIVA) INH SCH (07:34)
[2019-03-23] MEDS: FERROUS SULFATE 325MG TAB PO SCH (08:49)
[2019-03-23] MEDS: HumaLOG INSULIN (NovoLOG) PER UNIT SC SCH ×3 (08:49→18:03)
[2019-03-23] MEDS: ASPIRIN 81 MG ENTERIC TAB PO SCH (08:49)
[2019-03-23] MEDS: TORSEMIDE 20 MG TAB PO SCH (08:50)
[2019-03-23] MEDS: RIVAROXABAN 20 MG TAB (XARELTO) PO SCH (08:50)
[2019-03-23] MEDS: OMEPRAZOLE 20 MG CAP PO SCH (08:50)
[2019-03-23] MEDS: MEMANTINE 5MG TABLET (NAMENDA) PO SCH ×2 (08:51→21:42)
[2019-03-23] MEDS: CYANOCOBALAMIN 500 MCG TAB PO SCH (08:52)
[2019-03-23] MEDS: DIGOXIN 0.125 MG TAB PO SCH (08:52)
[2019-03-23] MEDS: CARVedilol 12.5 MG TAB PO SCH ×2 (08:53→21:43)
[2019-03-23] MEDS: SPIRONOLACTONE 25 MG TAB PO SCH (08:53)
[2019-03-23] MEDS ORDERED: POTASSIUM CHLORIDE 10 MEQ SR TABLET PO ONE (09:00)
--- NOTE | 2019-03-23 09:19 | PHACANCOPD ---
PHARMACY VANCOMYCIN DOSING Pt Demographics Demographics Patient Age:74 , Weight:75.900 , Gender: female Adjusted Body Weight Date: 03/23/19, Adjusted Body Weight: [60.42] Kg Events Past 24 Hours Events Past 24 Hours: YES: Elevation in WBC; NO: Dialysis, Diuretic Therapy, Change in CrCl, Fever, Pending Diagnostics, Pending Procedures, Other Vancomycin Vancomycin indication: MRSA Vancomycin Target Ranges: 10-20 mcg/ml Vancomycin Load Y/N: Yes Load Dose Date Time Vancomycin Load Dose: 1,750MG Date: 03/23/19 Time: 1000 Vancomycin Dose Date: 03/23/19. Current Vancomycin Dose: [1G Q24H] Intermittent Dosing?: No Labs Labs Item Value Date Time White Blood Count 21.9 10^3/uL H 03/22/19 0105 White Blood Count 18.3 10^3/uL H 03/23/19 0519 Creatinine 1.86 MG/DL H 03/23/19 0519 Methicillin-Resist S.aureus DNA PCR POSITIVE H 03/22/19 1419 Micro Microbiology 03/22/19 Blood Culture, Received Pending 03/22/19 Blood Culture - Preliminary, Resulted No growth after 24 hours . All specim... 03/22/19 Blood Culture - Preliminary, Resulted No growth after 24 hours . All specim... 03/22/19 Urine Culture, Received Pending Creatinine Clearance Date:03/23/19. Creatinine Clearance: [24.5]. Assessment and Plan Maintaining Current Dose?: Yes Reason for dose change: No Dose Change Pharmacist Note Pharmacist Note Date: 03/23/19. Pharmacist note: Patient being treated for a potential MRSA infection following a positive MRSA PCR. Serum creatinine is 1.86, clearance is 24.5mg/dL. Current loading dose is 1.75g followed by a 1g q24h maintenance dose. White blood cells were elevated on 03/22 but have gone down as of 03/23. 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 Patient is also being treated with Zosyn for empiric coverage. Will continue to monitory and adjust treatment as necessary. JENNIFER LOUIS, PHARMACY Mar 23, 2019 09:19
[2019-03-23] MEDS ORDERED: VANCOMYCIN HCL 750 MG, VIAL MATE ADAPTER 1 EACH in D5W 250 ML IV ONE (10:00)
[2019-03-23] MEDS: VANCOMYCIN HCL 1,000 MG, VIAL MATE ADAPTER 1 EACH in D5W 250 ML IV SCH (11:36)
[2019-03-23 14:00] VITALS: BP 129/63
[2019-03-23 20:54] VITALS: BP 142/73
[2019-03-23] MEDS: SERTRALINE HCL 50 MG TAB PO SCH (21:42)
[2019-03-23] MEDS: LEVEMIR (INSULIN DETEMIR) 1 UNITS/0.01ML SC SCH (21:44)
[2019-03-23] MEDS: ATORVASTATIN 20 MG TAB PO SCH (21:44)
[2019-03-23] MEDS: LISINOPRIL *2.5 MG* TAB PO SCH (21:44)
--- NOTE | 2019-03-23 22:14 | IPNPDOC ---
Text Note Date of Service The patient was seen on 03/23/19. NOTE Subjective: Feels much better today, feels more awake. Still reporting feeling warm. Had 3 episodes of loose stools this morning. Overnight events: Spiked a fever, had an episode of hypotension for which she was given 500cc bolus in addition to all the fluids witth the antibiotics. Yesterday morning she was on ceftriaxone and that switched to zosyn after she spiked a fever. Overnight she spiked another fever and vancomycin was added. ROS: Pertinent positives include subjective fevers with sweats, feeling tired and somnolent that is now improving. Otherwise denies chest pain, palpitations, dysuria, abodminal pain. 12 point ROS was otherwise normal if not noted above General Exam: Alert, Cooperative, no distress Eye Exam: MATTHIASRJOSELO LOPEZ ENT Exam: Atraumatic Chest Exam: Clear to auscultation Heart Exam: Irregularly irregular rhythm Telemetry: Atrial fibrillation Abdomen Exam: Normal bowel sounds, non tender Extremity Exam: WWP, no edema Neuro Exam: Cranial Nerves 3-12 grossly normal Psych Exam: Positive: Mental status NL Assessment/Plan Patient is 69 years old female with past medical history of atrial fibrillation not on the anticoagulation due to remote history of bleeding according to family, diabetes, CHF, CAD s/p PCI, COPD who presented with a few episodes of vomiting and fever with workup most consistent with pyelonephritis, who course has been c/b persistent fevers now on vanc/zosyn. Pylenephritis: Patient has leukocytosis, imaging suggesting left pyelonephritis and UA shows multiple leukocytes Continue empiric vanc/zosyn Gentle IV fluid if needed for BP and renal support, otherwise also receiving fluids via antibiotic infusion Follow up Urine culture, blood culture Altered mental status: Resolved, was likely metabolic encephalopathy Secondary to UTI CT of head did not show acute stroke Elevated troponin Most likely demand ischemia Continue to monitor troponin No new ischemic changes on the EKG Atrial fibrillation Problem Text: Rate controlled Continue home meds Xarelto 20 mg started VTE Prophylaxis: on xeralto Dispo plan: pending clinical improvement VS,Fishbone, I+O VS, Fishbone, I+O Laboratory Tests 03/23/19 05:19 Red Blood Count 3.22 L, Mean Corpuscular Volume 89.4, Mean Corpuscular Hemoglobin 30.4, Mean Corpuscular Hemoglobin Concent 34.0, Red Cell Distribution Width 14.7 H, Calcium Level 8.7 L Vital Signs Date Time Temp Pulse Resp B/P (MAP) Pulse Ox O2 Delivery O2 Flow Rate FiO2 03/23/19 21:44 142/73 03/23/19 21:43 77 03/23/19 20:54 97.6 24 100 03/22/19 00:05 Room Air I&O- Last 24 Hours up to 6 AM 03/23/19 06:00 Intake Total 920 ml Balance 920 ml SRIDEVI PRATER MD Mar 23, 2019 22:13
[2019-03-24] MEDS: PIPERACILLIN/TAZOBACTAM SOD 3.375 GM in D5W MINI-BAG PLUS 50 ML IV SCH ×4 (02:33→21:05)
[2019-03-24] MEDS: ACETAMINOPHEN TAB 650MG DOSE (2X325MG) PO PRN ×2 (03:30→15:02)
[2019-03-24 06:00] VITALS: BP 140/64
[2019-03-24] MEDS: LEVOTHYROXINE 88MCG TABLET (0.088 MG) PO SCH (06:03)
[2019-03-24 06:34] LABS: HEMATOCRIT 29.1 % (36.0-47.0); HEMOGLOBIN 9.8 g/dl (12.0-15.5); MEAN CORPUSCULAR HEMOGLOBIN 30.2 pg (27.0-33.0); MEAN CORPUSCULAR HGB CONC 33.7 g/dl (32.0-36.5); MEAN CORPUSCULAR VOLUME 89.5 fl (80.0-96.0); PLATELET COUNT, AUTOMATED 192 10^3/uL (150-450); RED BLOOD COUNT 3.25 10^6/uL (4.00-5.40); WHITE BLOOD COUNT 12.9 10^3/uL (4.0-10.0)
[2019-03-24 06:41] LABS: CALCIUM LEVEL 8.8 MG/DL (8.8-10.2); CREATININE FOR GFR 1.44 MG/DL (0.55-1.30); GLOMERULAR FILTRATION RATE 37.7 (>39); POTASSIUM SERUM 3.2 MEQ/L (3.5-5.1)
[2019-03-24] MEDS: TIOTROPIUM INHALER/CAPSULE (SPIRIVA) INH SCH (07:27)
[2019-03-24] MEDS: HumaLOG INSULIN (NovoLOG) PER UNIT SC SCH ×3 (07:44→17:36)
[2019-03-24] MEDS: OMEPRAZOLE 20 MG CAP PO SCH (08:38)
[2019-03-24] MEDS: RIVAROXABAN 20 MG TAB (XARELTO) PO SCH (08:38)
[2019-03-24] MEDS: MEMANTINE 5MG TABLET (NAMENDA) PO SCH ×2 (08:38→21:06)
[2019-03-24] MEDS: DIGOXIN 0.125 MG TAB PO SCH (08:38)
[2019-03-24] MEDS: FERROUS SULFATE 325MG TAB PO SCH (08:38)
[2019-03-24] MEDS: SPIRONOLACTONE 25 MG TAB PO SCH (08:39)
[2019-03-24] MEDS: CYANOCOBALAMIN 500 MCG TAB PO SCH (08:39)
[2019-03-24] MEDS: ASPIRIN 81 MG ENTERIC TAB PO SCH (08:39)
[2019-03-24] MEDS: TORSEMIDE 20 MG TAB PO SCH (08:39)
[2019-03-24] MEDS: CARVedilol 12.5 MG TAB PO SCH ×2 (08:40→21:00)
[2019-03-24] MEDS ORDERED: POTASSIUM CHLORIDE 10 MEQ SR TABLET PO ONE (09:00)
[2019-03-24] MEDS: VANCOMYCIN HCL 1,000 MG, VIAL MATE ADAPTER 1 EACH in D5W 250 ML IV SCH (10:46)
[2019-03-24 14:00] VITALS: BP 112/58
--- NOTE | 2019-03-24 16:50 | IPNPDOC ---
Text Note Date of Service The patient was seen on 03/24/19. NOTE Subjective: Feels well today, was sitting up visiting with family. The sweats have much improved now. ROS: Pertinent positives include sweating. Otherwise denies chest pain, pa lpitations, dysuria, abodminal pain. 12 point ROS was otherwise normal if not noted above General Exam: Alert, Cooperative, no distress Eye Exam: PERRLA, EOMI ENT Exam: Atraumatic Chest Exam: Clear to auscultation Heart Exam: Irregularly irregular rhythm Abdomen Exam: Normal bowel sounds, non tender Extremity Exam: WWP, no edema Neuro Exam: Cranial Nerves 3-12 grossly normal Psych Exam: AOx3, normal effect Assessment/Plan 69 years old woman with atrial fibrillation not on the anticoagulation due to remote history of bleeding according to family, diabetes, CHF, CAD s/p PCI, COPD who presented with vomiting and fever with workup most consistent with pyelonephritis, who course has been c/b persistent fevers now on vanc/zosyn with great improvement. Pylenephritis: Fever, Leukocytosis, +UA and imaging suggesting pyelonephritis Continue empiric vanc/zosyn Blood cultures are no growth to date while the urine sample is still pending Have now discontinued fluids as she is now taking good PO Follow up Urine culture, blood culture Altered mental status: Resolved, was likely metabolic encephalopathy in the urosepsis CT of head did not show acute stroke Elevated troponin: Most likely demand ischemia No new ischemic changes on the EKG Atrial fibrillation Rate controlled Continue home meds Xarelto 20 mg started VTE Prophylaxis: on xeralto Dispo plan: pending clinical improvement Xuan ROMO, I+O VSXuan I+O Laboratory Tests 03/24/19 05:42 Red Blood Count 3.25 L, Mean Corpuscular Volume 89.5, Mean Corpuscular Hemoglobin 30.2, Mean Corpuscular Hemoglobin Concent 33.7, Red Cell Distribution Width 14.5, Calcium Level 8.8 Vital Signs Date Time Temp Pulse Resp B/P (MAP) Pulse Ox O2 Delivery O2 Flow Rate FiO2 03/24/19 14:00 99.4 75 20 112/58 (76) 98 03/24/19 06:00 2.0 03/22/19 00:05 Room Air I&O- Last 24 Hours up to 6 AM 03/24/19 06:00 Intake Total 2660 ml Output Total 0 ml Balance 2660 ml SRIDEVI PRATER MD Mar 24, 2019 16:50
[2019-03-24] MEDS: LEVEMIR (INSULIN DETEMIR) 1 UNITS/0.01ML SC SCH (21:05)
[2019-03-24] MEDS: ATORVASTATIN 20 MG TAB PO SCH (21:05)
[2019-03-24] MEDS: SERTRALINE HCL 50 MG TAB PO SCH (21:05)
[2019-03-24] MEDS: LISINOPRIL *2.5 MG* TAB PO SCH (21:06)
[2019-03-24 22:00] VITALS: BP 124/76
[2019-03-25] MEDS: PIPERACILLIN/TAZOBACTAM SOD 3.375 GM in D5W MINI-BAG PLUS 50 ML IV SCH (01:55)
[2019-03-25] MEDS: ACETAMINOPHEN TAB 650MG DOSE (2X325MG) PO PRN (02:04)
[2019-03-25 06:00] VITALS: BP 108/54
[2019-03-25] MEDS: LEVOTHYROXINE 88MCG TABLET (0.088 MG) PO SCH (06:03)
[2019-03-25 06:33] LABS: HEMATOCRIT 29.2 % (36.0-47.0); HEMOGLOBIN 9.8 g/dl (12.0-15.5); MEAN CORPUSCULAR HEMOGLOBIN 30.1 pg (27.0-33.0); MEAN CORPUSCULAR HGB CONC 33.6 g/dl (32.0-36.5); MEAN CORPUSCULAR VOLUME 89.6 fl (80.0-96.0); PLATELET COUNT, AUTOMATED 227 10^3/uL (150-450); RED BLOOD COUNT 3.26 10^6/uL (4.00-5.40); WHITE BLOOD COUNT 12.1 10^3/uL (4.0-10.0)
[2019-03-25 06:59] LABS: CALCIUM LEVEL 9.2 MG/DL (8.8-10.2); CREATININE FOR GFR 1.21 MG/DL (0.55-1.30); GLOMERULAR FILTRATION RATE 46.1 (>39); POTASSIUM SERUM 3.7 MEQ/L (3.5-5.1)
[2019-03-25] MEDS: HumaLOG INSULIN (NovoLOG) PER UNIT SC SCH ×3 (07:30→17:35)
[2019-03-25] MEDS: TIOTROPIUM INHALER/CAPSULE (SPIRIVA) INH SCH (08:02)
[2019-03-25] MEDS ORDERED: BACTRIM 160MG/800MG DS TAB PO SCH (09:00)
[2019-03-25] MEDS: TORSEMIDE 20 MG TAB PO SCH (09:11)
[2019-03-25] MEDS: LevoFLOXacin 750 MG TABLET PO SCH (09:11)
[2019-03-25] MEDS: ASPIRIN 81 MG ENTERIC TAB PO SCH (09:11)
[2019-03-25] MEDS: CYANOCOBALAMIN 500 MCG TAB PO SCH (09:11)
[2019-03-25] MEDS: OMEPRAZOLE 20 MG CAP PO SCH (09:11)
[2019-03-25] MEDS: SPIRONOLACTONE 25 MG TAB PO SCH (09:11)
[2019-03-25] MEDS: RIVAROXABAN 20 MG TAB (XARELTO) PO SCH (09:11)
[2019-03-25] MEDS: FERROUS SULFATE 325MG TAB PO SCH (09:11)
[2019-03-25] MEDS: MEMANTINE 5MG TABLET (NAMENDA) PO SCH ×2 (09:12→21:46)
[2019-03-25] MEDS: CARVedilol 12.5 MG TAB PO SCH ×2 (09:12→21:47)
[2019-03-25] MEDS: DIGOXIN 0.125 MG TAB PO SCH (09:12)
[2019-03-25 14:00] VITALS: BP 147/67
--- NOTE | 2019-03-25 18:04 | IPNPDOC ---
Text Note Date of Service The patient was seen on 03/25/19. NOTE Subjective: Feels well today, no complaints. The sweating has resolving and does not have subjective fevers anymore. Is ROS was positive for frequent but small amounts of diarrhea. She reports it started after she was admitted. She otherwise has no abdominal pain, nausea, em esis, fever, chills. 12 point ROS was reviewed and otherwise normal except for the frequent minimal diarrhea in the setting of antibiotic therapy General Exam: Alert, Cooperative, no distress Eye Exam: PERRLA EOMI ENT Exam: Atraumatic Chest Exam: Clear to auscultation Heart Exam: Irregularly irregular rhythm Abdomen Exam: Normal bowel sounds, non tender Extremity Exam: WWP, no edema Neuro Exam: Cranial Nerves 3-12 grossly normal Psych Exam: AOx3, normal effect Assessment/Plan 69 years old woman with atrial fibrillation not on the anticoagulation due to remote history of bleeding according to family, diabetes, CHF, CAD s/p PCI, COPD who presented with vomiting and fever with workup most consistent with pyelonephritis, who course was initially c/b persistent fevers and placed on empiric vanc/zosyn and today will be narrowed to Bactrim after urine culture revealed Klebs UTI. Pylenephritis: Fever, Leukocytosis, +UA and imaging suggesting pyelonephritis, now with urine culture growing Klebsiella Switch empiric vanc/zosyn to bactrim based on the sensitivities Blood cultures are no growth to date Urine growing Klebsiella Altered mental status: Resolved, was likely metabolic encephalopathy in the urosepsis CT of head did not show acute stroke Elevated troponin: Most likely demand ischemia No new ischemic changes on the EKG Atrial fibrillation Rate controlled Continue home meds Xarelto 20 mg started VTE Prophylaxis: on xeralto Dispo plan: pending clinical improvement and PT evaluation VS,Fishbone, I+O VS, Fishbone, I+O Laboratory Tests 03/25/19 05:20 Red Blood Count 3.26 L, Mean Corpuscular Volume 89.6, Mean Corpuscular Hemog lobin 30.1, Mean Corpuscular Hemoglobin Concent 33.6, Red Cell Distribution Width 14.6 H, Calcium Level 9.2 Vital Signs Date Time Temp Pulse Resp B/P (MAP) Pulse Ox O2 Delivery O2 Flow Rate FiO2 03/25/19 14:00 98.0 71 15 147/67 (93) 99 03/24/19 06:00 2.0 03/22/19 00:05 Room Air I&O- Last 24 Hours up to 6 AM 03/25/19 06:00 Intake Total 1480 ml Balance 1480 ml SRIDEVI PRATER MD Mar 25, 2019 18:04
[2019-03-25] MEDS: ATORVASTATIN 20 MG TAB PO SCH (21:46)
[2019-03-25] MEDS: SERTRALINE HCL 50 MG TAB PO SCH (21:46)
[2019-03-25] MEDS: LISINOPRIL *2.5 MG* TAB PO SCH (21:47)
[2019-03-25] MEDS: LEVEMIR (INSULIN DETEMIR) 1 UNITS/0.01ML SC SCH (21:47)
[2019-03-25 22:00] VITALS: BP 139/71
[2019-03-26] MEDS: LEVOTHYROXINE 88MCG TABLET (0.088 MG) PO SCH (05:38)
[2019-03-26 05:53] LABS: HEMOGLOBIN 10.5 g/dl (12.0-15.5); MEAN CORPUSCULAR HEMOGLOBIN 29.8 pg (27.0-33.0); MEAN CORPUSCULAR HGB CONC 33.9 g/dl (32.0-36.5); MEAN CORPUSCULAR VOLUME 88.1 fl (80.0-96.0); PLATELET COUNT, AUTOMATED 262 10^3/uL (150-450); RED BLOOD COUNT 3.52 10^6/uL (4.00-5.40); WHITE BLOOD COUNT 11.2 10^3/uL (4.0-10.0)
[2019-03-26 06:00] VITALS: BP 134/78
[2019-03-26 06:15] LABS: CALCIUM LEVEL 9.2 MG/DL (8.8-10.2); CREATININE FOR GFR 1.12 MG/DL (0.55-1.30); GLOMERULAR FILTRATION RATE 50.4 (>39); POTASSIUM SERUM 3.2 MEQ/L (3.5-5.1)
[2019-03-26] MEDS: TIOTROPIUM INHALER/CAPSULE (SPIRIVA) INH SCH (07:27)
[2019-03-26] MEDS: HumaLOG INSULIN (NovoLOG) PER UNIT SC SCH ×3 (08:54→16:55)
[2019-03-26] MEDS: SPIRONOLACTONE 25 MG TAB PO SCH (08:55)
[2019-03-26] MEDS: OMEPRAZOLE 20 MG CAP PO SCH (08:55)
[2019-03-26] MEDS: FERROUS SULFATE 325MG TAB PO SCH (08:55)
[2019-03-26] MEDS: ASPIRIN 81 MG ENTERIC TAB PO SCH (08:55)
[2019-03-26] MEDS: RIVAROXABAN 20 MG TAB (XARELTO) PO SCH (08:55)
[2019-03-26] MEDS: CYANOCOBALAMIN 500 MCG TAB PO SCH (08:55)
[2019-03-26] MEDS: TORSEMIDE 20 MG TAB PO SCH (08:55)
[2019-03-26] MEDS: CARVedilol 12.5 MG TAB PO SCH ×2 (08:56→23:36)
[2019-03-26] MEDS: MEMANTINE 5MG TABLET (NAMENDA) PO SCH ×2 (08:56→22:15)
[2019-03-26] MEDS: DIGOXIN 0.125 MG TAB PO SCH (08:56)
[2019-03-26 09:08] LABS: MAGNESIUM LEVEL 2.1 MG/DL (1.8-2.4)
[2019-03-26] MEDS ORDERED: POTASSIUM CHLORIDE 10 MEQ SR TABLET PO ONE (10:00)
[2019-03-26 14:00] VITALS: BP 144/64
--- NOTE | 2019-03-26 21:13 | IPNPDOC ---
Text Note Date of Service The patient was seen on 03/26/19. NOTE Subjective: Feels well today, no complaints. Sitting up in chair having lunch. Diarrhea has resolved. ROS : 12 point ROS was reviewed and normal. General Exam: Alert, Cooperative, no distress Eye Exam: PERRLA, EOMI ENT Exam: Atraumatic Chest Exam: Clear to auscultation Heart Exam: Irregularly irregular rhythm Abdomen Exam: Normal bowel sounds, non tender Extremity Exam: WWP, no edema Neuro Exam: Cranial Nerves 3-12 grossly normal Psych Exam: AOx3, normal effect Assessment/Plan 69 years old woman with atrial fibrillation not on the anticoagulation due to remote history of bleeding according to family, diabetes, CHF, CAD s/p PCI, COPD who presented with vomiting and fever with workup most consistent with pyelonephritis, who course was initially c/b persistent fevers and placed on empiric vanc/zosyn and finally narrowed to Bactrim after urine culture revealed Klebs UTI. Pylenephritis: Fever, Leukocytosis, +UA and imaging suggesting pyelonephritis, with urine culture growing Klebsiella Continue bactrim Blood cultures were negative Urine grew Klebsiella Altered mental status: Resolved, was likely metabolic encephalopathy in the urosepsis CT of head did not show acute stroke Elevated troponin: Most likely demand ischemia No new ischemic changes on the EKG Atrial fibrillation Rate controlled Continue home meds Xarelto 20 mg started VTE Prophylaxis: on xeralto Dispo plan: PT evaluation and likely home tomorrow VS,Fishbone, I+O VS, Fishbone, I+O Laboratory Tests 03/26/19 05:10 Red Blood Count 3.52 L, Mean Corpuscular Volume 88.1, Mean Corpuscular Hemoglobin 29.8, Mean Corpuscular Hemoglobin Concent 33.9, Red Cell Distribution Width 14.3, Calcium Level 9.2 Vital Signs Date Time Temp Pulse Resp B/P (MAP) Pulse Ox O2 Delivery O2 Flow Rate FiO2 03/26/19 14:00 98.0 74 16 144/64 (90) 100 03/24/19 06:00 2.0 03/22/19 00:05 Room Air I&O- Last 24 Hours up to 6 AM 03/26/19 06:00 Intake Total 2040 ml Balance 2040 ml SRIDEVI PRATER MD Mar 26, 2019 21:13
[2019-03-26 22:00] VITALS: BP 162/59
[2019-03-26] MEDS: SERTRALINE HCL 50 MG TAB PO SCH (22:14)
[2019-03-26] MEDS: ATORVASTATIN 20 MG TAB PO SCH (22:14)
[2019-03-26] MEDS: LISINOPRIL *2.5 MG* TAB PO SCH (22:15)
[2019-03-26] MEDS: LEVEMIR (INSULIN DETEMIR) 1 UNITS/0.01ML SC SCH (22:16)
[2019-03-26 23:32] VITALS: BP 157/62
[2019-03-26] MEDS: ACETAMINOPHEN TAB 650MG DOSE (2X325MG) PO PRN (23:35)
[2019-03-26 23:36] VITALS: BP 157/62
[2019-03-27] MEDS: SODIUM CHLORIDE 0.9% NASAL GEL 15GM (AYR) PRN ×3 (01:58→10:16)
[2019-03-27 05:42] LABS: HEMOGLOBIN 10.9 g/dl (12.0-15.5); MEAN CORPUSCULAR HEMOGLOBIN 30.3 pg (27.0-33.0); MEAN CORPUSCULAR HGB CONC 34.1 g/dl (32.0-36.5); MEAN CORPUSCULAR VOLUME 88.9 fl (80.0-96.0); PLATELET COUNT, AUTOMATED 310 10^3/uL (150-450); WHITE BLOOD COUNT 11.3 10^3/uL (4.0-10.0)
[2019-03-27] MEDS: LevoFLOXacin 750 MG TABLET PO SCH (05:56)
[2019-03-27] MEDS: LEVOTHYROXINE 88MCG TABLET (0.088 MG) PO SCH (05:56)
[2019-03-27 06:00] VITALS: BP 157/63
[2019-03-27 06:08] LABS: CALCIUM LEVEL 9.3 MG/DL (8.8-10.2); CREATININE FOR GFR 1.17 MG/DL (0.55-1.30); GLOMERULAR FILTRATION RATE 47.9 (>39); POTASSIUM SERUM 3.7 MEQ/L (3.5-5.1)
[2019-03-27] MEDS: TIOTROPIUM INHALER/CAPSULE (SPIRIVA) INH SCH (07:15)
[2019-03-27] MEDS: CYANOCOBALAMIN 500 MCG TAB PO SCH (10:10)
[2019-03-27] MEDS: RIVAROXABAN 20 MG TAB (XARELTO) PO SCH (10:10)
[2019-03-27] MEDS: MEMANTINE 5MG TABLET (NAMENDA) PO SCH (10:11)
[2019-03-27] MEDS: SPIRONOLACTONE 25 MG TAB PO SCH (10:11)
[2019-03-27] MEDS: ASPIRIN 81 MG ENTERIC TAB PO SCH (10:11)
[2019-03-27] MEDS: OMEPRAZOLE 20 MG CAP PO SCH (10:11)
[2019-03-27] MEDS: TORSEMIDE 20 MG TAB PO SCH (10:11)
[2019-03-27] MEDS: FERROUS SULFATE 325MG TAB PO SCH (10:11)
[2019-03-27] MEDS: DIGOXIN 0.125 MG TAB PO SCH (10:13)
[2019-03-27] MEDS: HumaLOG INSULIN (NovoLOG) PER UNIT SC SCH ×2 (10:14→12:36)
[2019-03-27] MEDS: CARVedilol 12.5 MG TAB PO SCH (10:14)
[2019-03-27 14:00] VITALS: BP 129/60
[2019-03-27] MEDS ORDERED: LEVA750T7 PO (16:06)
--- NOTE | 2019-03-27 19:19 | DS.PDOC ---
Discharge Summary General Date of Admission Mar 22, 2019 at 05:01 Date of Discharge 03/27/2019 Attending Physician: SRIDEVI PRATER MD Discharge Summary PROCEDURES PERFORMED DURING STAY: None ADMITTING DIAGNOSES: 1. UTI DISCHARGE DIAGNOSES: 1. Pyelonephritis with severe sepsis 2. Metabolic encephalopathy 3. Atrial fibrillation 4. CAD 5. COPD 6. Diabetes mellitus 7. CHF COMPLICATIONS/CHIEF COMPLAINT: Altered Mental Status, Uti. HISTORY OF PRESENT ILLNESS: 69 year old woman with atrial fibrillation not on the anticoagulation due to remote history of bleeding according to family, diabetes, CHF, CAD s/p PCI and COPD who presented to the hospital after few episodes of vomiting and fever. She stated that on the morning of presentation she had a few episodes of nausea and vomiting and family also reported that she was confused noting a fever to 101.9 with associated chills. ROS was positive for dry cough but otherwise she had no chest pain, abdominal pain, diarrhea or shortness of breath. HOSPITAL COURSE: In the ED, she was febrile and found to have a white blood count of 21.9. Urine culture showed multiple leukocytes and positive nitrites while abdominal CAT scan was positive for mild to moderate left perinephric stranding with areas of low attenuation concerning for pyelonephritis without stones or hydronephrosis. She was started on IV fluids and ceftriaxone and admitted. Her course on the floor was complicated by persistent fever and septoid physiology with transient hypotension that required a fluid bolus that prompted broadening of antibiotics to vanc and zosyn. Blood cultures x 2 separate draws were negative while urine cultures eventually grew Klebsiella. She was appropriately transitioned to oral antibiotics, initially Bactrim and later switched to renally dosed levaquin. The rest of her course by issue is described below: Pyelonephritis: Fever, Leukocytosis, +UA and CT consistent with pyelonephritis, with urine culture growing Klebsiella -Initially treated with ceftriaxone --> then switched to vanc/zosyn --> then bactrim but given GFR --> switched to renally dosed levofloxacin for 7 days -Blood cultures were negative Metabolic encephalopathy: Resolved with resolution of urosepsis -CT of head did not any acute intracranial abnormalities Elevated troponin: Most likely demand ischemia No new ischemic changes on the EKG Atrial fibrillation -Was rate controlled with home beta lei -Continued home Xarelto 20 mg DISCHARGE MEDICATIONS: Please see below. ALLERGIES: Please see below. PHYSICAL EXAMINATION ON DISCHARGE: VITAL SIGNS: Please see below. General Exam: Alert, Cooperative, no distress Eye Exam: PERRLAIANMI ENT Exam: Atraumatic Chest Exam: Clear to auscultation Heart Exam: Irregularly irregular rhythm Abdomen Exam: Normal bowel sounds, non tender Extremity Exam: WWP, no edema Neuro Exam: Cranial Nerves 3-12 grossly normal Psych Exam: AOx3, normal effect LABORATORY DATA: Please see below. IMAGIN/11: noncontrast head CT: No evidence of acute territorial major vessel infarct, mass effect, or hem orrhage. 3 mm hypodensity right lentiform nucleus may represent a tiny lacunar infarct of indeterminate acuity. Mild white matter changes may be related to microvascular ischemic or white matter disease, of indeterminate acuity. Age- related involutional changes. 03/22: CXR Mild cardiomegaly and cephalization. No acute disease 03/22: CT abdbomen/pelvis with IV contrast Lungs: Mild bibasilar atelectasis. Granuloma in the left lung base. Heart: Cardiomegaly. Liver: Liver is enlarged with diffuse fatty infiltration. Gallbladder and bile ducts: Status post cholecystectomy. Pancreas: Mild atrophy of the pancreas. Spleen: Splenic granulomas. Adrenals: Normal. No mass. Kidneys and ureters: 1 mm non obstructing calcification in the upper pole of the right kidney. Mild to moderate left perinephric stranding with areas of low attenuation concerning for pyelonephritis. No stones or hydronephrosis. Stomach and bowel: Diverticulosis without CT evidence of diverticulitis. No bowel dilatation or obstruction. Appendix: Normal appendix. Intraperitoneal space: Unremarkable. No free air. No significant fluid collection. Vasculature: Atherosclerosis of the aorta and its branches. Lymph nodes: Unremarkable. No enlarged lymph nodes. Bladder: Urinary bladder is not well distended and well appears to be thickened likely secondary to nondistention. Reproductive: Unremarkable as visualized. Bones/joints: Diffuse demineralization of the bones with degenerative changes. Mild dextroscoliosis of the lumbar spine. Soft tissues: Unremarkable. IMPRESSION: Mild to moderate left perinephric stranding with areas of low attenuation concerning for pyelonephritis. No stones or hydronephrosis. PROGNOSIS: Good ACTIVITY: As tolerated DIET: consistent carb, 2g salt DISCHARGE PLAN: Home with completion of Levaquin course DISPOSITION: 01 Home, Self-Care. DISCHARGE INSTRUCTIONS: Please complete the course of Levaquin as instructed and follow up with your primary care provider within 1 week of discharge ITEMS TO FOLLOWUP ON ON OUTPATIENT: 1. Pyelonephritis resolution 2. PCP follow up for chronic comorbidities DISCHARGE CONDITION: Good TIME SPENT ON DISCHARGE: Greater than 30 minutes. Vital Signs/I&Os Vital Signs Date Time Temp Pulse Resp B/P (MAP) Pulse Ox O2 Delivery O2 Flow Rate FiO2 03/27/19 14:00 98.8 60 18 129/60 (83) 99 03/24/19 06:00 2.0 03/22/19 00:05 Room Air I&O- Last 24 Hours up to 6 AM 03/27/19 05:59 Intake Total 1780 ml Output Total 0 ml Balance 1780 ml Laboratory Data Labs 24H Laboratory Tests 2 03/26/19 22:07: Bedside Glucose (Misc Panel) 250H 03/27/19 05:12: Nucleated Red Blood Cells % (auto) 0.0, Anion Gap 4L, Glomerular Filtration Rate 47.9, Blood Urea Nitrogen 27H, Creatinine 1.17, Sodium Level 136, Potassium Level 3.7, Chloride Level 101, Carbon Dioxide Level 31, Calcium Level 9.3 03/27/19 11:20: Bedside Glucose (Misc Panel) 137H 03/27/19 16:34: Bedside Glucose (Misc Panel) 156H CBC/BMP Laboratory Tests 03/27/19 05:12 Red Blood Count 3.60 L, Mean Corpuscular Volume 88.9, Mean Corpuscular Hemog lobin 30.3, Mean Corpuscular Hemoglobin Concent 34.1, Red Cell Distribution Width 14.6 H, Calcium Level 9.3 FSBS Laboratory Tests Test 03/26/19 22:07 03/27/19 11:20 03/27/19 16:34 Range/Units Bedside Glucose (Misc Panel) 250 137 156 83-110 MG/DL Microbiology Microbiology 03/22/19 Blood Culture - Preliminary, Resulted No Growth after 72 hours. All specime... 03/22/19 Blood Culture - Final, Complete NO GROWTH AFTER 5 DAYS 03/22/19 Blood Culture - Final, Complete NO GROWTH AFTER 5 DAYS 03/22/19 Urine Culture - Final, Complete Klebsiella Oxytoca Discharge Medications Scheduled Aspirin (Aspirin EC) 81 Mg Tab, 81 MG PO DAILY, (Reported) Atorvastatin Calcium (Atorvastatin Calcium) 80 Mg Tablet, 80 MG PO QHS, (Reported) Carvedilol (Coreg) 12.5 Mg Tab, 12.5 MG PO BID, (Reported) Cyanocobalamin (Vitamin B-12) (Vitamin B-12) 1,000 Mcg Tab, 1,000 MCG PO DAILY, (Reported) Digoxin (Digoxin) 125 Mcg Tablet, 125 MCG PO DAILY, (Reported) Ergocalciferol (Vitamin D2) (Drisdol) 50,000 Unit Cap, 50,000 UNIT PO Q2WK, (Reported) TAKES ON THE AND 15 OF EACH MONTH Ferrous Sulfate (Ferrous Sulfate) 325 Mg Tab, 325 MG PO DAILY, (Reported) Glipizide (Glipizide) 5 Mg Tab, 5 MG PO BID, (Reported) Insulin Glargine,Hum.rec.anlog (Basaglar Kwikpen U-100) 100 Unit/Ml Inj, 10 UNIT SC QHS, (Reported) Levofloxacin (Levaquin) 750 Mg Tablet, 750 MG PO Q48H Levothyroxine Sodium (Synthroid) 88 Mcg Tablet, 88 MCG PO DAILY, (Reported) Liraglutide (Victoza 2-Shadi) 0.6 Mg/0.1 Ml Pen.injctr, 1.8 MG SC QHS, (Reported) Lisinopril (Lisinopril) 2.5 Mg Tablet, 2.5 MG PO QHS, (Reported) Memantine HCl (Namenda) 10 Mg Tab, 10 MG PO BID, (Reported) Omeprazole (Omeprazole) 20 Mg Cap, 20 MG PO DAILY, (Reported) Potassium Chloride (Klor-Con M10) 10 Meq Tabcr, 30 MEQ PO BID, (Reported) Sertraline HCl (Sertraline HCl) 100 Mg Tab, 150 MG PO QHS, (Reported) Spironolactone (Spironolactone) 25 Mg Tab, 25 MG PO DAILY, (Reported) Tiotropium [place] (Spiriva) 18 Mcg Cap.w.dev, 1 INHALATION INH DAILY, (Reported) Torsemide (Torsemide) 20 Mg Tab, 40 MG PO DAILY, (Reported) Allergies Coded Allergies: No Known Allergies (Unverified , 12/18/18) SRIDEVI PRATER MD Mar 27, 2019 18:38
== END 2019-03-27 18:14 | disposition home or self-care (01) | DRG 871 ==
LOC: M ED 23:55 → M ED INP 03-22 05:01 → M MSPAV 03-22 06:46
PROVIDERS: ADMIT Internal Medicine; ATTEND Internal Medicine
DX: A41.9 Sepsis, unspecified organism (principal); G93.41 Metabolic encephalopathy; N10 Acute pyelonephritis; I24.8 Other forms of acute ischemic heart disease; R65.20 Severe sepsis without septic shock; I48.91 Unspecified atrial fibrillation; E11.9 Type 2 diabetes mellitus without complications; I50.9 Heart failure, unspecified; J44.9 Chronic obstructive pulmonary disease, unspecified; Z95.5 Presence of coronary angioplasty implant and graft; Z79.82 Long term (current) use of aspirin; Z79.4 Long term (current) use of insulin; Z79.899 Other long term (current) drug therapy; Z87.891 Personal history of nicotine dependence; Z90.49 Acquired absence of other specified parts of digestive tract

== ENCOUNTER → 2019-04-10 | Outpatient (RCR) | payer MEDICARE, MEDICAID ==
[~2019-04-10] MED LIST changes: +CIPR500T3 PO; +LEVA750T7 PO; +LISI-1046 PO; +SPIR1CAP INH; +SYNT88TA2 PO
== END | disposition home or self-care (01) ==
LOC: M PT 04-07 09:55
PROVIDERS: ATTEND Family Medicine
DX: Z51.89 Encounter for other specified aftercare (principal); M62.81 Muscle weakness (generalized)

== ENCOUNTER 2019-04-26 13:45 | Outpatient (RCR) | payer MEDICARE, MEDICAID ==
[~2019-04-26 13:45] MED LIST changes: +FENO48TA13 PO; -FENO48TA2 PO
== END 2019-05-11 ==
LOC: M PT 13:45
PROVIDERS: ATTEND Family Medicine
DX: M62.81 Muscle weakness (generalized) (principal)

== ENCOUNTER → 2020-01-22 | Outpatient (CLI) | payer OTHER, MEDICAID ==
[~2020-01-22] MED LIST changes: +DIGO0.123 PO; -FENO48TA13 PO; +FENO48TA7 PO; -LISI-1046; -LISI-1046 PO; +LISI2.5T2; +LISI2.5T2 PO; +OMEP1CAP73 PO; -OMEP20CA4 PO
[2020-01-22 19:30] LABS: HEMOGLOBIN A1c 8.5 %
[2020-01-22 19:38] LABS: ALBUMIN 3.9 GM/DL (3.2-5.2); BILIRUBIN,TOTAL 0.7 MG/DL (0.2-1.0); CALCIUM LEVEL 9.2 MG/DL (8.8-10.2); CREATININE FOR GFR 1.12 MG/DL (0.55-1.30); FREE T4 0.94 NG/DL (0.76-1.46); GLOMERULAR FILTRATION RATE 50.4 (>39); POTASSIUM SERUM 4.4 MEQ/L (3.5-5.1); THYROID STIMULATING HORMONE 4.34 uIU/ML (0.358-3.740); TOTAL PROTEIN 7.1 GM/DL (6.4-8.2)
[2020-01-22 20:04] LABS: BASO % 0.4 % (0.0-1.0); EOS # 0.1 10^3/uL (0.0-0.5); EOS % 1.2 % (0.0-3.0); HEMATOCRIT 38.6 % (36.0-47.0); HEMOGLOBIN 12.5 g/dl (12.0-15.5); LYMPH # 1.9 10^3/uL (1.5-5.0); LYMPH % 20.1 % (24.0-44.0); MEAN CORPUSCULAR HEMOGLOBIN 29.1 pg (27.0-33.0); MEAN CORPUSCULAR HGB CONC 32.4 g/dl (32.0-36.5); MEAN CORPUSCULAR VOLUME 89.8 fl (80.0-96.0); MONO # 0.6 10^3/uL (0.0-0.8); MONO % 5.8 % (0.0-5.0); NEUTROPHILS # 6.8 10^3/uL (1.5-8.5); NEUTROPHILS % 72.1 % (36.0-66.0); PLATELET COUNT, AUTOMATED 261 10^3/uL (150-450); WHITE BLOOD COUNT 9.5 10^3/uL (4.0-10.0)
[2020-01-22 21:16] LABS: APPEARANCE, URINE MANUAL CLOUDY (CLEAR); COLOR, URINE MANUAL YELLOW (YELLOW)
[2020-01-22 21:17] LABS: BILIRUBIN, URINE MANUAL NEGATIVE (NEGATIVE); GLUCOSE, URINE (UA) MANUAL 1+(100 MG/DL) mg/dL (NEGATIVE); KETONE, URINE MANUAL NEGATIVE (NEGATIVE); NITRITE, URINE MANUAL POSITIVE (NEGATIVE); PROTEIN, URINE MANUAL 1+ mg/dL (NEGATIVE); UROBILINOGEN, URINE MANUAL NORMAL (NORMAL)
[2020-01-22 21:18] LABS: BLOOD URINE MANUAL POSITIVE (NEGATIVE); LEUKOCYTE ESTERASE, URINE MAN POSITIVE (NEGATIVE)
[2020-01-22 21:22] LABS: WBC, URINE 20-30 /hpf (0-3)
[2020-01-22 21:23] LABS: BACTERIA, URINE LARGE AMOUNT; HYALINE CAST, URINE NONE SEEN /lpf (0-1); SQUAMOUS EPITHELIAL CELL URINE NONE SEEN /hpf (SMALL AMT)
[2020-01-22 21:55] LABS: CREATININE, URINE 94.1 MG/DL; MALB URINE SIEMENS 56.8 MG/L; MAU/CREAT RATIO 60.3 MCG/MG (0.0-30.0)
== END ==
LOC: M LAB 16:00
PROVIDERS: ATTEND Family Medicine
DX: E11.9 Type 2 diabetes mellitus without complications (principal)

== ENCOUNTER 2020-02-12 15:50 | Inpatient (IN) | payer OTHER, MEDICAID ==
[2020-02-12] MEDS ORDERED: cefTRIAXone SOD 1GM VIAL (J0696 PER 250MG) ONE (20:19)
[2020-02-12] MEDS ORDERED: ACETAMINOPHEN 1000MG 100ML IV BTL (OFIRMEV) (J0131 PER 10MG) ONE (21:40)
[2020-02-13] MEDS ORDERED: ACETAMINOPHEN TAB 650MG DOSE (2X325MG) ONE (04:28)
[2020-02-13] MEDS ORDERED: ACETAMINOPHEN TAB 650MG DOSE (2X325MG) As Ordered ONE (04:28)
[2020-02-13] MEDS ORDERED: HEPARIN SOD (PORCINE) 5000UNITS/ML 1ML VIAL/SYRINGE ONE ×3 (05:43→21:50)
[2020-02-13] MEDS ORDERED: LEVOTHYROXINE 88MCG TABLET (0.088 MG) ONE (05:43)
[2020-02-13] MEDS ORDERED: HEPARIN SOD (PORCINE) 5000UNITS/ML 1ML VIAL/SYRINGE As Ordered ONE ×2 (05:43→14:27)
[2020-02-13] MEDS ORDERED: LEVOTHYROXINE 88MCG TABLET (0.088 MG) As Ordered ONE (05:43)
[2020-02-13] MEDS ORDERED: IBUPROFEN 400 MG TAB ONE (06:48)
[2020-02-13] MEDS ORDERED: IBUPROFEN 400 MG TAB As Ordered ONE (06:48)
[2020-02-13] MEDS ORDERED: SERTRALINE 100 MG TAB ONE (08:52)
[2020-02-13] MEDS ORDERED: CARVedilol 12.5 MG TAB ONE ×2 (08:52→21:50)
[2020-02-13] MEDS ORDERED: CYANOCOBALAMIN 500 MCG TAB As Ordered ONE (08:52)
[2020-02-13] MEDS ORDERED: DIGOXIN 0.125 MG TAB As Ordered ONE (08:52)
[2020-02-13] MEDS ORDERED: PANTOPRAZOLE 40MG TAB (PROTONIX) As Ordered ONE (08:52)
[2020-02-13] MEDS ORDERED: CYANOCOBALAMIN 500 MCG TAB ONE (08:52)
[2020-02-13] MEDS ORDERED: ASPIRIN 81 MG ENTERIC TAB ONE (08:52)
[2020-02-13] MEDS ORDERED: DIGOXIN 0.125 MG TAB ONE (08:52)
[2020-02-13] MEDS ORDERED: FERROUS SULFATE 325MG TAB ONE (08:52)
[2020-02-13] MEDS ORDERED: SERTRALINE 100 MG TAB As Ordered ONE (08:52)
[2020-02-13] MEDS ORDERED: PANTOPRAZOLE 40MG TAB (PROTONIX) ONE (08:52)
[2020-02-13] MEDS ORDERED: FERROUS SULFATE 325MG TAB As Ordered ONE (08:53)
[2020-02-13] MEDS ORDERED: CARVedilol 12.5 MG TAB As Ordered ONE (08:53)
[2020-02-13] MEDS ORDERED: ASPIRIN 81 MG ENTERIC TAB As Ordered ONE (08:53)
[2020-02-13] MEDS ORDERED: HumaLOG INSULIN (NovoLOG) PER UNIT As Ordered ONE ×2 (08:59→11:54)
[2020-02-13] MEDS ORDERED: HumaLOG INSULIN (NovoLOG) PER UNIT ONE ×3 (08:59→17:49)
[2020-02-13] MEDS ORDERED: MEMANTINE 5MG TABLET (NAMENDA) ONE (09:00)
[2020-02-13] MEDS ORDERED: TOLTERODINE TARTRATE 2 MG LA CAP (DETROL LA) ONE (09:00)
[2020-02-13] MEDS ORDERED: CIPROFLOXACIN/D5W 400 MG/200 ML BAG (J0744) As Ordered ONE (11:25)
[2020-02-13] MEDS ORDERED: CIPROFLOXACIN/D5W 400 MG/200 ML BAG (J0744) ONE ×2 (11:25→22:56)
[2020-02-13] MEDS ORDERED: ATORVASTATIN 20 MG TAB ONE (21:50)
[2020-02-14] MEDS ORDERED: LEVOTHYROXINE 88MCG TABLET (0.088 MG) As Ordered ONE (06:14)
[2020-02-14] MEDS ORDERED: HEPARIN SOD (PORCINE) 5000UNITS/ML 1ML VIAL/SYRINGE ONE ×3 (06:14→21:14)
[2020-02-14] MEDS ORDERED: LEVOTHYROXINE 88MCG TABLET (0.088 MG) ONE (06:14)
[2020-02-14] MEDS ORDERED: HEPARIN SOD (PORCINE) 5000UNITS/ML 1ML VIAL/SYRINGE As Ordered ONE ×3 (06:14→21:14)
[2020-02-14] MEDS ORDERED: HumaLOG INSULIN (NovoLOG) PER UNIT ONE ×5 (08:23→21:17)
[2020-02-14] MEDS ORDERED: CIPROFLOXACIN/D5W 400 MG/200 ML BAG (J0744) As Ordered ONE ×2 (08:23→21:14)
[2020-02-14] MEDS ORDERED: CIPROFLOXACIN/D5W 400 MG/200 ML BAG (J0744) ONE ×2 (08:23→21:14)
[2020-02-14] MEDS ORDERED: PANTOPRAZOLE 40MG TAB (PROTONIX) ONE (08:23)
[2020-02-14] MEDS ORDERED: PANTOPRAZOLE 40MG TAB (PROTONIX) As Ordered ONE (08:24)
[2020-02-14] MEDS ORDERED: HumaLOG INSULIN (NovoLOG) PER UNIT As Ordered ONE ×4 (08:25→21:19)
[2020-02-14] MEDS ORDERED: SERTRALINE 100 MG TAB As Ordered ONE (08:26)
[2020-02-14] MEDS ORDERED: ASPIRIN 81 MG ENTERIC TAB As Ordered ONE (08:26)
[2020-02-14] MEDS ORDERED: CYANOCOBALAMIN 500 MCG TAB ONE (08:26)
[2020-02-14] MEDS ORDERED: CARVedilol 12.5 MG TAB ONE ×2 (08:26→21:17)
[2020-02-14] MEDS ORDERED: SERTRALINE 100 MG TAB ONE (08:26)
[2020-02-14] MEDS ORDERED: CARVedilol 12.5 MG TAB As Ordered ONE ×2 (08:26→21:17)
[2020-02-14] MEDS ORDERED: ASPIRIN 81 MG ENTERIC TAB ONE (08:26)
[2020-02-14] MEDS ORDERED: CYANOCOBALAMIN 500 MCG TAB As Ordered ONE (08:26)
[2020-02-14] MEDS ORDERED: FERROUS SULFATE 325MG TAB ONE (08:26)
[2020-02-14] MEDS ORDERED: FERROUS SULFATE 325MG TAB As Ordered ONE (08:27)
[2020-02-14] MEDS ORDERED: POTASSIUM CHLORIDE 10 MEQ SR TABLET ONE (11:53)
[2020-02-14] MEDS ORDERED: POTASSIUM CHLORIDE 10 MEQ SR TABLET As Ordered ONE (11:53)
[2020-02-14] MEDS ORDERED: TOLTERODINE TARTRATE 2 MG LA CAP (DETROL LA) ONE (13:00)
[2020-02-14] MEDS ORDERED: ATORVASTATIN 20 MG TAB ONE (21:14)
[2020-02-14] MEDS ORDERED: ATORVASTATIN 20 MG TAB As Ordered ONE (21:14)
[2020-02-14] MEDS ORDERED: LEVEMIR (INSULIN DETEMIR) 1 UNITS/0.01ML As Ordered ONE (21:36)
[2020-02-14] MEDS ORDERED: LEVEMIR (INSULIN DETEMIR) 1 UNITS/0.01ML ONE (21:36)
[2020-02-15] MEDS ORDERED: LEVOTHYROXINE 88MCG TABLET (0.088 MG) ONE (06:19)
[2020-02-15] MEDS ORDERED: LEVOTHYROXINE 88MCG TABLET (0.088 MG) As Ordered ONE (06:19)
[2020-02-15] MEDS ORDERED: HEPARIN SOD (PORCINE) 5000UNITS/ML 1ML VIAL/SYRINGE As Ordered ONE (06:19)
[2020-02-15] MEDS ORDERED: HEPARIN SOD (PORCINE) 5000UNITS/ML 1ML VIAL/SYRINGE ONE (06:19)
[2020-02-15] MEDS ORDERED: CYANOCOBALAMIN 500 MCG TAB ONE (10:43)
[2020-02-15] MEDS ORDERED: CARVedilol 12.5 MG TAB ONE (10:43)
[2020-02-15] MEDS ORDERED: ATORVASTATIN 20 MG TAB As Ordered ONE (10:43)
[2020-02-15] MEDS ORDERED: PANTOPRAZOLE 40MG TAB (PROTONIX) ONE (10:43)
[2020-02-15] MEDS ORDERED: PANTOPRAZOLE 40MG TAB (PROTONIX) As Ordered ONE (10:43)
[2020-02-15] MEDS ORDERED: ATORVASTATIN 20 MG TAB ONE (10:43)
[2020-02-15] MEDS ORDERED: FERROUS SULFATE 325MG TAB ONE (10:43)
[2020-02-15] MEDS ORDERED: SERTRALINE 100 MG TAB ONE (10:43)
[2020-02-15] MEDS ORDERED: SERTRALINE 100 MG TAB As Ordered ONE (10:44)
[2020-02-15] MEDS ORDERED: CYANOCOBALAMIN 500 MCG TAB As Ordered ONE (10:44)
[2020-02-15] MEDS ORDERED: FERROUS SULFATE 325MG TAB As Ordered ONE (10:45)
[2020-02-15] MEDS ORDERED: CARVedilol 12.5 MG TAB As Ordered ONE (10:45)
--- NOTE | 2020-04-09 12:12 | ECGEPIP ---
ELECTRONIC ATRIAL PACEMAKER RHYTHM APPEARS TO BE ATRIAL FIB, WITH CONTROLLED VR. CONSIDER PRIOR ASMI NONSPECIFIC ST & T-WAVE ABNORMALITIES C/W DIGOXIN EFFECT. NO COMPARISON AVAILABLE MTDD
[2020-04-13 08:41] LABS: BASO % 0.2 % (0.0-1.0); EOS # 0.1 10^3/uL (0.0-0.5); EOS % 0.4 % (0.0-3.0); HEMATOCRIT 31.6 % (36.0-47.0); HEMOGLOBIN 10.7 g/dl (12.0-15.5); LYMPH % 8.1 % (24.0-44.0); MEAN CORPUSCULAR HEMOGLOBIN 29.7 pg (27.0-33.0); MEAN CORPUSCULAR HGB CONC 33.9 g/dl (32.0-36.5); MEAN CORPUSCULAR VOLUME 87.8 fl (80.0-96.0); MONO % 8.5 % (0.0-5.0); NEUTROPHILS # 9.7 10^3/uL (1.5-8.5); NEUTROPHILS % 81.9 % (36.0-66.0); PLATELET COUNT, AUTOMATED 196 10^3/uL (150-450); WHITE BLOOD COUNT 11.9 10^3/uL (4.0-10.0)
[2020-04-13 11:14] LABS: BASO % 0.4 % (0.0-1.0); EOS # 0.1 10^3/uL (0.0-0.5); EOS % 0.7 % (0.0-3.0); HEMATOCRIT 31.4 % (36.0-47.0); HEMOGLOBIN 10.7 g/dl (12.0-15.5); LYMPH # 1.5 10^3/uL (1.5-5.0); LYMPH % 18.8 % (24.0-44.0); MEAN CORPUSCULAR HEMOGLOBIN 30.1 pg (27.0-33.0); MEAN CORPUSCULAR HGB CONC 34.1 g/dl (32.0-36.5); MEAN CORPUSCULAR VOLUME 88.2 fl (80.0-96.0); MONO # 0.9 10^3/uL (0.0-0.8); MONO % 10.4 % (0.0-5.0); NEUTROPHILS # 5.7 10^3/uL (1.5-8.5); NEUTROPHILS % 68.7 % (36.0-66.0); PLATELET COUNT, AUTOMATED 230 10^3/uL (150-450); RED BLOOD COUNT 3.56 10^6/uL (4.00-5.40); WHITE BLOOD COUNT 8.2 10^3/uL (4.0-10.0)
--- NOTE | 2020-04-19 15:03 | ECHO ---
DATE OF PROCEDURE: 02/13/2020 Age: 75 Gender: Female Height: 157 cm Weight: 73.5 kg REFERRING PHYSICIAN: Dr. Davey INDICATION: Syncope MEASUREMENTS: 2D Measurements: Aortic Root 3.2 cm Aortic annulus 1.7 cm Proximal ascending aorta 3.5 cm Left atrium 4.1 cm Interventricular septum 1.12 cm Posterior wall 0.92 cm Left ventricle diastole 4.8 cm Left ventricle systole 2.4 cm Inferior vena cava 1.6 cm (with more than 50% respiratory variation) Estimated CVP 5-10 mmHg Doppler Measurements: Mild aortic regurgitation No aortic stenosis Aortic regurgitation pressure half time 652 msec Aortic valve velocity 232 cm/s LVOT velocity 86.5 cm/s No mitral stenosis No mitral regurgitation Moderate tricuspid regurgitation Estimated right ventricle systolic pressure 44-49 mmHg Estimated right atrial pressure of 5-10 mmHg Mild pulmonic regurgitation Pulmonic acceleration time 102 msec DESCRIPTION: Rhythm was atrial fibrillation with slow ventricular response and appearance of a bundle branch block-type morphology. Image quality was fair. No pericardial effusion. This was a 2D, M-mode, color flow Doppler, and pulsed wave Doppler examination. CONCLUSIONS: * Normal left ventricle internal dimensions and wall thickness. Normal regional LV wall motion and wall thickness. Normal LV systolic function. LVEF 60% by visual assessment. * Mild left atrial dilatation. * Moderate mitral annular calcification. No mitral stenosis or regurgitation. * Moderate tricuspid regurgitation. Structurally normal appearing tricuspid leaflets. Normal right ventricle size and systolic function. Right atrium appeared normal in size. Suggestive of moderate elevation of estimated right ventricle systolic pressure. * Mild aortic valve sclerosis of a 3-cuspid aortic valve. Mild aortic regurgitation. No pericardial effusion. MTDD
[2020-04-21 15:16] LABS: HEMATOCRIT 39.6 % (36.0-47.0); MEAN CORPUSCULAR HEMOGLOBIN 29.2 pg (27.0-33.0); MEAN CORPUSCULAR HGB CONC 32.8 g/dl (32.0-36.5); PLATELET COUNT, AUTOMATED 204 10^3/uL (150-450); RED BLOOD COUNT 4.45 10^6/uL (4.00-5.40); WHITE BLOOD COUNT 24.8 10^3/uL (4.0-10.0)
[2020-04-21 15:17] LABS: BASO % 0.1 % (0.0-1.0); HEMATOCRIT 35.5 % (36.0-47.0); HEMOGLOBIN 11.8 g/dl (12.0-15.5); LYMPH # 0.9 10^3/uL (1.5-5.0); LYMPH % 3.9 % (24.0-44.0); MEAN CORPUSCULAR HEMOGLOBIN 29.9 pg (27.0-33.0); MEAN CORPUSCULAR HGB CONC 33.2 g/dl (32.0-36.5); MEAN CORPUSCULAR VOLUME 90.1 fl (80.0-96.0); MONO # 1.3 10^3/uL (0.0-0.8); MONO % 5.7 % (0.0-5.0); NEUTROPHILS # 19.8 10^3/uL (1.5-8.5); NEUTROPHILS % 89.6 % (36.0-66.0); PLATELET COUNT, AUTOMATED 203 10^3/uL (150-450); RED BLOOD COUNT 3.94 10^6/uL (4.00-5.40); WHITE BLOOD COUNT 22.1 10^3/uL (4.0-10.0)
[2020-04-21 15:24] LABS: APPEARANCE, URINE TURBID (CLEAR); BACTERIA, URINE AUTO 3+ (NEGATIVE); BILIRUBIN, URINE AUTO NEGATIVE (NEGATIVE); BLOOD, URINE BLOOD 2+ (NEGATIVE); COLOR, URINE YELLOW (YELLOW); GLUCOSE, URINE (UA) AUTO 1+ mg/dL (NEGATIVE); KETONE, URINE AUTO NEGATIVE (NEGATIVE); LEUKOCYTE ESTERASE, URINE AUTO 2+ (NEGATIVE); MUCUS, URINE SMALL (NEGATIVE); NITRITE, URINE AUTO NEGATIVE (NEGATIVE); PROTEIN, URINE AUTO 2+ mg/dL (NEGATIVE); RBC, URINE AUTO 22 /HPF (0-3); SPECIFIC GRAVITY URINE AUTO 1.013 (1.002-1.035); SQUAMOUS EPITHELIAL CELL UR AU 4 /HPF (0-6); UROBILINOGEN, URINE AUTO 0.2 mg/dL (0.0-2.0); WBC, URINE AUTO TNTC /HPF (0-3)
[2020-04-22 01:20] LABS: ALBUMIN 3.8 GM/DL (3.2-5.2); ALT/SGPT 25 U/L (12-78); BILIRUBIN,TOTAL 1.9 MG/DL (0.2-1.0); BLOOD UREA NITROGEN 32 MG/DL (7-18); CALCIUM LEVEL 9.7 MG/DL (8.8-10.2); CARBON DIOXIDE LEVEL 30 MEQ/L (21-32); CHLORIDE LEVEL 91 MEQ/L (98-107); CK-MB VALUE MASS 1.7 NG/ML (<3.6); CPK CREATINE PHOSPHOKINASE 164 U/L (26-192); CREATININE FOR GFR 1.69 MG/DL (0.55-1.30); GLOMERULAR FILTRATION RATE 31.2 (>39); GLUCOSE, FASTING 197 MG/DL (70-100); MB/CK RELATIVE INDEX 1.04 (< OR =4); POTASSIUM SERUM 3.8 MEQ/L (3.5-5.1); SODIUM LEVEL 131 MEQ/L (136-145); TOTAL PROTEIN 7.6 GM/DL (6.4-8.2); TROPONIN I < 0.02 NG/ML (< 0.10)
[2020-04-23 13:28] LABS: APPEARANCE, URINE TURBID (CLEAR); BACTERIA, URINE AUTO 3+ (NEGATIVE); BILIRUBIN, URINE AUTO NEGATIVE (NEGATIVE); BLOOD, URINE BLOOD 2+ (NEGATIVE); COLOR, URINE AMBER (YELLOW); GLUCOSE, URINE (UA) AUTO NEGATIVE (NEGATIVE); GRANULAR CAST, URINE AUTO 6 /LPF; KETONE, URINE AUTO NEGATIVE (NEGATIVE); LEUKOCYTE ESTERASE, URINE AUTO 3+ (NEGATIVE); MUCUS, URINE SMALL (NEGATIVE); NITRITE, URINE AUTO NEGATIVE (NEGATIVE); PROTEIN, URINE AUTO 2+ mg/dL (NEGATIVE); RBC, URINE AUTO 15 /HPF (0-3); SQUAMOUS EPITHELIAL CELL UR AU 1 /HPF (0-6); UROBILINOGEN, URINE AUTO 0.2 mg/dL (0.0-2.0); WBC, URINE AUTO TNTC /HPF (0-3)
[2020-04-23 13:30] LABS: BASO % 0.2 % (0.0-1.0); HEMATOCRIT 37.9 % (36.0-47.0); HEMOGLOBIN 12.9 g/dl (12.0-15.5); LYMPH # 1.2 10^3/uL (1.5-5.0); LYMPH % 5.1 % (24.0-44.0); MEAN CORPUSCULAR HEMOGLOBIN 29.8 pg (27.0-33.0); MEAN CORPUSCULAR VOLUME 87.5 fl (80.0-96.0); MONO # 1.7 10^3/uL (0.0-0.8); MONO % 6.9 % (0.0-5.0); NEUTROPHILS % 87.1 % (36.0-66.0); PLATELET COUNT, AUTOMATED 224 10^3/uL (150-450); RED BLOOD COUNT 4.33 10^6/uL (4.00-5.40); WHITE BLOOD COUNT 24.1 10^3/uL (4.0-10.0)
[2020-04-28 11:29] LABS: NT-PRO BNP 3929 PG/ML (<450); TROPONIN I < 0.02 NG/ML (< 0.10)
[2020-05-06 16:41] LABS: CALCIUM LEVEL 9.3 MG/DL (8.8-10.2); CREATININE FOR GFR 1.14 MG/DL (0.55-1.30); GLOMERULAR FILTRATION RATE 49.2 (>39); MAGNESIUM LEVEL 2.4 MG/DL (1.8-2.4); PHOSPHORUS LEVEL 2.3 MG/DL (2.5-4.9); POTASSIUM SERUM 3.8 MEQ/L (3.5-5.1)
[2020-05-07 11:08] LABS: BLOOD UREA NITROGEN 31 MG/DL (7-18); CALCIUM LEVEL 9.4 MG/DL (8.8-10.2); CARBON DIOXIDE LEVEL 29 MEQ/L (21-32); CHLORIDE LEVEL 96 MEQ/L (98-107); DIGOXIN LEVEL 1.6 NG/ML (0.5-2.0); GLUCOSE, FASTING 159 MG/DL (70-100); HEMOGLOBIN A1c 7.1 %; NT-PRO BNP 3607 PG/ML (<450); POTASSIUM SERUM 4.1 MEQ/L (3.5-5.1); SODIUM LEVEL 134 MEQ/L (136-145); TROPONIN I < 0.02 NG/ML (< 0.10)
[2020-05-07 11:08] LABS: ALBUMIN 3.3 GM/DL (3.2-5.2); BILIRUBIN,TOTAL 1.1 MG/DL (0.2-1.0); CREATININE FOR GFR 1.65 MG/DL (0.55-1.30); DIGOXIN LEVEL 2.7 NG/ML (0.5-2.0); GLOMERULAR FILTRATION RATE 32.1 (>39); MAGNESIUM LEVEL 2.3 MG/DL (1.8-2.4); POTASSIUM SERUM 4.2 MEQ/L (3.5-5.1); TOTAL PROTEIN 6.6 GM/DL (6.4-8.2)
[2020-05-08 16:19] LABS: CALCIUM LEVEL 8.8 MG/DL (8.8-10.2); CREATININE FOR GFR 1.19 MG/DL (0.55-1.30); GLOMERULAR FILTRATION RATE 46.8 (>39); MAGNESIUM LEVEL 2.1 MG/DL (1.8-2.4); PHOSPHORUS LEVEL 2.3 MG/DL (2.5-4.9); POTASSIUM SERUM 3.4 MEQ/L (3.5-5.1)
== END 2020-02-15 08:00 | disposition home health service (06) | DRG 689 ==
LOC: M ED 15:50 → M PCU 20:30
PROVIDERS: ADMIT Internal Medicine; ATTEND Internal Medicine
DX: N39.0 Urinary tract infection, site not specified (principal); G93.41 Metabolic encephalopathy; N17.9 Acute kidney failure, unspecified; E87.1 Hypo-osmolality and hyponatremia; I48.20 Chronic atrial fibrillation, unspecified; I50.32 Chronic diastolic (congestive) heart failure; Z79.899 Other long term (current) drug therapy; Z79.82 Long term (current) use of aspirin; J44.9 Chronic obstructive pulmonary disease, unspecified; E11.9 Type 2 diabetes mellitus without complications; E03.9 Hypothyroidism, unspecified; F03.90 Unspecified dementia, unspecified severity, without behavioral disturbance, psychotic disturbance, mood disturbance, and anxiety; D64.9 Anemia, unspecified; D72.829 Elevated white blood cell count, unspecified; I11.0 Hypertensive heart disease with heart failure; E66.9 Obesity, unspecified; I25.2 Old myocardial infarction; I25.10 Atherosclerotic heart disease of native coronary artery without angina pectoris; Z87.891 Personal history of nicotine dependence; I08.0 Rheumatic disorders of both mitral and aortic valves

== ENCOUNTER → 2020-03-26 | Outpatient (REF) | payer OTHER, MEDICAID ==
[2020-03-26 22:46] LABS: APPEARANCE, URINE HAZY (CLEAR); BACTERIA, URINE AUTO 1+ (NEGATIVE); BILIRUBIN, URINE AUTO NEGATIVE (NEGATIVE); BLOOD, URINE BLOOD 1+ (NEGATIVE); COLOR, URINE AMBER (YELLOW); GLUCOSE, URINE (UA) AUTO NEGATIVE (NEGATIVE); KETONE, URINE AUTO NEGATIVE (NEGATIVE); LEUKOCYTE ESTERASE, URINE AUTO 3+ (NEGATIVE); NITRITE, URINE AUTO POSITIVE (NEGATIVE); PROTEIN, URINE AUTO NEGATIVE (NEGATIVE); RBC, URINE AUTO 2 /HPF (0-3); SPECIFIC GRAVITY URINE AUTO 1.003 (1.002-1.035); SQUAMOUS EPITHELIAL CELL UR AU 1 /HPF (0-6); UROBILINOGEN, URINE AUTO 0.2 mg/dL (0.0-2.0); WBC, URINE AUTO 60 /HPF (0-3)
== END ==
LOC: M LAB REF 22:22
PROVIDERS: ATTEND Physician Assistant Medical
DX: N39.0 Urinary tract infection, site not specified (principal)

== ENCOUNTER → 2020-07-11 | Outpatient (REF) | payer OTHER, MEDICAID | LOC: M LAB 20:41 | PROVIDERS: ATTEND Physician Assistant | DX: N39.0 Urinary tract infection, site not specified (principal) ==

== ENCOUNTER 2020-10-19 12:41 | Inpatient (IN) | payer OTHER, MEDICAID ==
[~2020-10-19] VITALS: Ht 162.6 cm; Wt 73.9 kg
[2020-10-19] MEDS ORDERED: LOPE1CAP5 PO (13:00)
[2020-10-19] MEDS ORDERED: NITR4TASL SL (13:00)
[2020-10-19] MEDS ORDERED: GABA-282 PO (13:00)
[2020-10-19] MEDS ORDERED: MORPHINE 2 MG/ML 1ML VIAL (J2270) IV ONE (13:15)
[2020-10-19] MEDS ORDERED: ONDANSETRON 4MG/2ML VIAL IV ONE (13:15)
[2020-10-19 13:51] LABS: BASO % 0.2 % (0.0-1.0); EOS % 0.4 % (0.0-3.0); HEMATOCRIT 37.6 % (36.0-47.0); HEMOGLOBIN 12.4 g/dl (12.0-15.5); LYMPH # 1.2 10^3/uL (1.5-5.0); LYMPH % 13.4 % (24.0-44.0); MEAN CORPUSCULAR HEMOGLOBIN 29.8 pg (27.0-33.0); MEAN CORPUSCULAR VOLUME 90.4 fl (80.0-96.0); MONO # 0.5 10^3/uL (0.0-0.8); MONO % 5.7 % (2.0-8.0); NEUTROPHILS # 7.4 10^3/uL (1.5-8.5); NEUTROPHILS % 79.8 % (36.0-66.0); PLATELET COUNT, AUTOMATED 291 10^3/uL (150-450); RED BLOOD COUNT 4.16 10^6/uL (4.00-5.40); WHITE BLOOD COUNT 9.2 10^3/uL (4.0-10.0)
[2020-10-19] MEDS: GASTROGRAFIN SOLUTION 30ML PO SCH ×3 (14:00→14:32)
[2020-10-19 14:28] LABS: ALBUMIN 4.3 GM/DL (3.2-5.2); ALT/SGPT 81 U/L (12-78); BILIRUBIN,DIRECT 0.2 MG/DL (0.0-0.2); BILIRUBIN,TOTAL 0.7 MG/DL (0.2-1.0); BLOOD UREA NITROGEN 28 MG/DL (7-18); CALCIUM LEVEL 9.3 MG/DL (8.8-10.2); CARBON DIOXIDE LEVEL 30 MEQ/L (21-32); CHLORIDE LEVEL 103 MEQ/L (98-107); CK-MB VALUE MASS 1.6 NG/ML (<3.6); CPK CREATINE PHOSPHOKINASE 57 U/L (26-192); CREATININE FOR GFR 1.65 MG/DL (0.55-1.30); DIGOXIN LEVEL 1.9 NG/ML (0.5-2.0); GLOMERULAR FILTRATION RATE 32.1 (>39); GLUCOSE, FASTING 122 MG/DL (70-100); LIPASE 151 U/L (73-393); MB/CK RELATIVE INDEX 2.81 (< OR =4); POTASSIUM SERUM 4.3 MEQ/L (3.5-5.1); SODIUM LEVEL 138 MEQ/L (136-145); TOTAL PROTEIN 7.7 GM/DL (6.4-8.2); TROPONIN I < 0.02 NG/ML (< 0.10)
[2020-10-19] MEDS ORDERED: NS 1,000 ML IV SCH (14:40)
[2020-10-19] MEDS ORDERED: ISOVUE-370 76% 100ML VIAL As Ordered ONE (15:21)
--- NOTE | 2020-10-19 16:13 | REP ---
INDICATION: abd pain, vomiting COMPARISON: 03/22/2019. TECHNIQUE: CT Scan of the abdomen and pelvis was performed with intravenous administration of 100 cc of Isovue 370, and oral contrast. FINDINGS: Lung bases: Unremarkable. Liver: Normal Gallbladder: Prior cholecystectomy. The common bile duct is dilated up to approximately 15 mm in diameter, increased in caliber compared to the prior CT. There is mild intrahepatic biliary dilatation. There is mild dilatation of the pancreatic duct in the pancreatic head and body, in the pancreatic head the maximum diameter of the duct is 6 mm. The dilatation of the pancreatic duct and common bile duct is seen diffusely up to the ampulla of Vater. Spleen: Normal. Adrenals: Normal. Pancreas: Mild dilatation of pancreatic duct. No pancreatic mass. Kidneys: No mass or hydronephrosis. Heavy calcification is seen in the proximal left renal artery and I suspect left renal artery stenosis. There is mild left renal atrophy. Small and large bowel: There is sigmoid and left colonic diverticulosis without acute diverticulitis. There is no evidence of bowel obstruction. There is no free air. Free fluid: None. Abdominal aorta: No aneurysm or dissection. Adenopathy: None. Appendix: Prior appendectomy. Osseous structures: There are degenerative changes of the spine without compression deformity.. Pelvis: No mass. Prior hysterectomy. Stimulator lead seen in the left pelvis. IMPRESSION: Increased biliary dilatation as well as mild dilatation of the pancreatic duct diffusely to the ampulla of Vater. I cannot exclude a lesion or stone at the ampulla of Vater. Further evaluation may be made with MRCP. No free air or free fluid. No evidence of bowel obstruction. Sigmoid and left colonic diverticulosis without acute diverticulitis. <Electronically signed by Maykel Green > 10/19/20 [id number]
[2020-10-19] MEDS ORDERED: cefTRIAXone SOD 1 GM in D5W MINI-BAG PLUS 50 ML IV ONE (16:30)
[2020-10-19] MEDS ORDERED: ONDANSETRON 4MG/2ML VIAL IV PRN (17:20)
[2020-10-19] MEDS ORDERED: MORPHINE 2 MG/ML 1ML VIAL (J2270) IV PRN (17:20)
[2020-10-19] MEDS ORDERED: GLUCAGON INJ 1MG VIAL SC PRN (17:20)
[2020-10-19] MEDS ORDERED: GLUCOSE 4GM CHEW TABLET PO PRN (17:20)
[2020-10-19] MEDS ORDERED: DEXTROSE 50% 50 ML SYRINGE IV PRN (17:20)
--- NOTE | 2020-10-19 17:27 | HPEPDOC ---
[facility] Medical History & Physical Date of Admission Oct 19, 2020 Date of Service: Oct 19, 2020 Attending Physician: Ceci Alcocer MD History and Physical CHIEF COMPLAINT: nausea, vomiting, abdominal pain HISTORY OF PRESENT ILLNESS: Patient is a 75-year-old female with past medical history of Alzheimer's dementia, hypertension, atrial fibrillation, iron deficiency anemia, diabetes mellitus, history of coronary artery disease, CHF who presented to [facility] emergency room with the chief complaint of increased nausea, vomiting and abdominal pain over the past 24 hours. The patient states her symptoms began on 10/18/2020 with nausea and 10 episodes of nonbloody vomitus. She complained of epigastric/left upper quadrant pain during this time, localized, 7/10, sharp, constant. She states the pain went away after several hours but then returned again this morning. Same character same quality same location. She had 4+ episodes of nonbloody vomitus today with nothing to eat or drink. She came to the emergency room because she felt her condition was not improving. She denied chest pain, diarrhea, chills, dizziness. She admitted to having associated shortness of breath, questionable fever, decreased appetite, lightheadedness and unsteadiness on her feet. In the emergency room, vital signs show temperature 98.9, heart rate 71 and irregularly irregular (baseline atrial fibrillation), respiratory rate 18, blood pressure 138/91, 95% on room air. ECG showed atrial fibrillation with T-wave depressions in leads 23 and aVF, V5 and V6. When compared to prior ECG on file from 03/2019 this was similar. Troponin was negative. AST/ALT 47/81 and slightly elevated, alkaline phosphatase 180, creatinine 1.65 (baseline is within normal limits), blood sugar slightly elevated at 122. bilirubin was negative. CBC unremarkable. UA is positive with a urine culture pending. Of note the patient does have chronic urinary tract infections for which she is on oral levofloxacin. The patient had left upper and lower quadrant pain on exam for the ER attending, she was given pain control and Zofran. She was sent for a CT of the abdomen and pelvis which showed increased biliary dilatation as well as mild dilatation of the pancreatic duct diffusely to the ampulla of Vater, cannot exclude a lesion or stone at the ampulla of Vater. Further evaluation was suggested to be made with MRCP;however, patient has a bladder stimulator and could not go for MRCP. Dr. Escudero (GI) discussed case with ER attending and decision was made to admit under observation status with a diagnosis of biliary ductal dilation rule out stone versus malignancy. REVIEW OF SYSTEMS: Neg except for what is mentioned above PAST MEDICAL HISTORY: Alzheimer's dementia Hyperlipidemia Hypertension Vitamin B12 deficiency Atrial fibrillation Iron deficiency anemia Diabetes mellitus Recurrent urinary tract infection on prophylactic levofloxacin Hypothyroidism GERD Hypokalemia, chronic Depression CAD status post stent placement 2 CHF Emphysema Urinary incontinence PAST SURGICAL HISTORY: Bladder stimulator placement Hip surgery Cholecystectomy Cardiac stent placement 2 FAMILY HISTORY: Father: lung cancer. at 78 y/o Mother: CAD. at 80 y/o SOCIAL HISTORY: Prior smoker of 3 packs per day for over 40 years. Quit in . Denies alcohol or drug use. Lives locally. Follows with primary care provider regularly. She is a full code. ALLERGIES: Please see below. HOME MEDICATIONS: Please see below. PHYSICAL EXAMINATION: VS: T 98.9 F, heart rate 71 and irregularly irregular (baseline atrial fibrillation), respiratory rate 18, blood pressure 138/91, 95% on room air CONSTITUTIONAL: No acute distress, resting comfortably, AAO x 3 EYES: PERRLA, EOM intact HENT, MOUTH: Normocephalic, atraumatic, moist mucous membranes NECK: SUPPLE, no JVD, no lymphadenopathy, no carotid bruit CV: irregularly irregular rhythm, controlled, S1S2 normal, no murmurs/rubs/gallops RESPIRATORY: Clear to auscultation bilaterally, no rales/rhonchi/wheezes GI: mild epigastric, LLQ, LUQ pain. BS positive in 4 quadrants, soft, nontender, nondistended, no rebound or guarding, no organomegaly : Deferred MUSCULOSKELETAL: Normal ROM. No cyanosis, clubbing, swelling, joint deformity, extremity edema INTEGUMENTARY: Intact, no rashes, no lesions, no erythema NEUROLOGIC: Cranial Nerves II-XII are intact, no focal deficits PSYCHIATRIC: Mood and affect are normal LABORATORY DATA: Please see below IMAGING: F/u RUQ US CT abd/pelvis: Increased biliary dilatation as well as mild dilatation of the pancreatic duct diffusely to the ampulla of Vater. I cannot exclude a lesion or stone at the ampulla of Vater. Further evaluation may be made with MRCP. No free air or free fluid. No evidence of bowel obstruction. Sigmoid and left colonic diverticulosis without acute diverticulitis. ASSESSMENT: 75-year-old female with past medical history of Alzheimer's dementia, hypertension, atrial fibrillation, iron deficiency anemia, diabetes mellitus, history of coronary artery disease, CHF admitted under observation status for further workup of biliary ductal dilation r/o stone vs malignancy. PLAN: Biliary ductal dilation r/o stone vs malignancy -Likely cause of abd pain, n/v -CT abd/pelvis -Bili wnl; however, alk phos, AST/ALT slightly incr -Started on CLD, pain control, zofran PRN -F/u RUQ US, CMP Q8H -GI consulted to follow up. Based on results of RUQ US and repeat labs will determine if ERCP needed Transaminitis likely 2/2 to problem above -C/w plan above Acute kidney injury likely 2/2 to vomiting, dehydration -Cr 1.65, baseline is wnl -C/w IVFs at 100 cc/hr, CLD -F/u repeat labs to ensure improvement, avoid nephrotoxic medications at this time UTI, recurrent. Asymptomatic -On prophylactic abx at home -Will keep on home PO med for now, f/u UCx as may be chronically colonized Abnormal ECG -T wave depression in II, III, aVF, V5 and V6- similar to prior ECG on file from 03/2019 -Trop neg and denies chest pain -C/w home cardiac meds, holding statin with transaminitis Alzheimer's dementia -Stable, at baseline -C/w home med Hyperlipidemia -Holding statin due to incr AST/ALT Hypertension -Stable -Holding ACEi, torsemide, spironolactone for now while giving IVFs overnight. Vitamin B12 deficiency -C/w supplement daily Atrial fibrillation, chronic -Rate controlled -C/w digoxin, BB Iron deficiency anemia -C/w supplement Diabetes mellitus -Holding long acting home insulin due to poor PO intake, n/v -Q6H ISS, FS Q6H -CLD with low sugar Hypothyroidism -c/w levothyroxine Hypokalemia, chronic -C/w daily supplement Depression -STable CAD status post stent placement 2 -Old ECG changes -Neg trop and denies chest pain -C/w ASA, BB, nitro PRN. Holding statin Emphysema -Stable on RA -C/w home inhaler Urinary retention -Bladder stimulator in place GERD -PPI DVT px -Heparin DISPOSITION: Admitted under observation status. Plan is discharge home when medically improved. Vital Signs Vital Signs Date Time Temp Pulse Resp B/P (MAP) Pulse Ox O2 Delivery O2 Flow Rate FiO2 10/19/20 14:39 18 10/19/20 13:47 10/19/20 12:41 98.9 71 95 Room Air Laboratory Data Labs 24H Laboratory Tests 2 10/19/20 13:12: Immature Granulocyte % (Auto) 0.5, Neutrophils (%) (Auto) 79.8H, Lymphocytes (%) (Auto) 13.4L, Monocytes (%) (Auto) 5.7, Eosinophils (%) (Auto) 0.4, Basophils (%) (Auto) 0.2, Neutrophils # (Auto) 7.4, Lymphocytes # (Auto) 1.2L, Monocytes # (Auto) 0.5, Eosinophils # (Auto) 0.0, Basophils # (Auto) 0.0, Nucleated Red Blood Cells % (auto) 0.0, Anion Gap 5L, Glomerular Filtration Rate 32.1L, Calcium Level 9.3, Total Bilirubin 0.7, Direct Bilirubin 0.2, Aspartate Amino Transf (AST/SGOT) 47H, Alanine Aminotransferase (ALT/SGPT) 81H, Alkaline Phosphatase 180H, Total Creatine Kinase 57, Creatine Kinase MB 1.6, Creatine Kinase MB Relative Index 2.81, Troponin I < 0.02, Total Protein 7.7, Albumin 4.3, Albumin/Globulin Ratio 1.3, Lipase 151, Digoxin Level 1.9 10/19/20 16:06: Urine Color YELLOW, Urine Appearance HAZY, Urine pH 6.0, Urine Specific [place] 1.024, Urine Protein NEGATIVE, Urine Glucose (UA) NEGATIVE, Urine Ketones NEGATIVE, Urine Blood NEGATIVE, Urine Nitrite NEGATIVE, Urine Bilirubin NEGATIVE, Urine Urobilinogen 0.2, Urine Leukocyte Esterase 3+H, Urine WBC (Auto) 92H, Urine RBC (Auto) 2, Urine Hyaline Casts (Auto) 0, Urine Bacteria (Auto) 1+H, Urine Squamous Epithelial Cells 0, Urine Mucus (Auto) LARGE, Urine Sperm (Auto) CBC/BMP Laboratory Tests 10/19/20 13:12 Microbiology Microbiology 10/19/20 Urine Culture, Received Pending Home Medications Scheduled Aspirin (Aspirin EC) 81 Mg Tab, 81 MG PO DAILY Atorvastatin Calcium (Atorvastatin Calcium) 80 Mg Tablet, 80 MG PO QHS Carvedilol (Coreg) 12.5 Mg Tab, 12.5 MG PO BID Cyanocobalamin (Vitamin B-12) (Vitamin B-12) 1,000 Mcg Tab, 1,000 MCG PO DAILY Digoxin (Digoxin) 125 Mcg Tablet, 125 MCG PO DAILY Ergocalciferol (Vitamin D2) (Drisdol) 50,000 Unit Cap, 50,000 UNIT PO Q2WK TAKES ON THE AND OF EACH MONTH Ferrous Sulfate (Ferrous Sulfate) 325 Mg Tab, 325 MG PO DAILY Gabapentin (Gabapentin) 300 Mg Capsule, 1 CAP PO QHS Glipizide (Glipizide) 5 Mg Tab, 5 MG PO BID Insulin Glargine,Hum.rec.anlog (Basaglar Kwikpen U-100) 100 Unit/Ml Inj, 10 UNIT SC QHS Levothyroxine Sodium (Synthroid) 88 Mcg Tablet, 88 MCG PO DAILY Liraglutide (Victoza 2-Shadi) 0.6 Mg/0.1 Ml Pen.injctr, 1.8 MG SC QHS Lisinopril (Lisinopril) 2.5 Mg Tablet, 2.5 MG PO QHS Loperamide HCl (Loperamide) 2 Mg Capsule, 2 CAP PO Q6H for loose stools Nitroglycerin (Nitrostat) 0.4 Mg Tab.subl, 1 TAB SL ASDIRECTED for chest pain 1st sign of attack; may repeat every 5 mins; if pain persists after 3 in 15 min, medical attention is recommended Omeprazole (Omeprazole) 20 Mg Cap, 20 MG PO DAILY Potassium Chloride (Klor-Con M10) 10 Meq Tabcr, 20 MEQ PO BID Sertraline HCl (Sertraline HCl) 100 Mg Tab, 100 MG PO QHS Spironolactone (Spironolactone) 25 Mg Tab, 25 MG PO DAILY Tiotropium [place] (Spiriva) 18 Mcg Cap.w.dev, 1 INHALATION INH DAILY Torsemide (Torsemide) 20 Mg Tab, 20 MG PO DAILY Allergies Coded Allergies: No Known Allergies (Unverified , 12/18/18) A-FIB/CHADSVASC A-FIB History Current/History of A-Fib/PAF?: Yes Current PO Anticoag Therapy: No Age/Risk Factor Scoring CHADSVASC: CHADSVASC Response (Comments) Value Age Risk Factor Age >/= 75 years old 2 Gender Risk Factor Female 1 Hx of CHF Yes 1 Hx of HTN Yes 1 Hx of Stroke/TIA/or VTE No 0 Hx of Diabetes Yes 1 Hx of Vascular Disease No 0 Total 6 Treatment Treatment ordered: Other Other anticoagulant ordered: heparin Ceci Alcocer MD Oct 19, 2020 17:27
[2020-10-19] MEDS ORDERED: SULF1TAB93 PO (18:13)
--- NOTE | 2020-10-19 18:37 | REP ---
INDICATION: RUQ, biliary dilatation r/o stones vs. malignancy. COMPARISON: 11/14/2015. TECHNIQUE: Real-time sonographic evaluation of right upper quadrant performed. FINDINGS: The patient has had a prior cholecystectomy. There is dilatation of the common bile duct up to 15 mm. There is no definite intrahepatic biliary dilatation. No calculus is seen in the visualized common bile duct. The liver demonstrates homogeneous echotexture with no gross mass. The pancreas demonstrates homogeneous echotexture with no gross mass. The right kidney demonstrates no hydronephrosis, with a normal size of 11.0 cm in length. No free fluid is seen. IMPRESSION: Status post cholecystectomy. Dilated common bile duct 15 mm, no stone is seen in the visualized duct. <Electronically signed by Maykel Green > 10/19/20 [id number]
[2020-10-19 18:47] LABS: RSV AMPLIFICATION NEGATIVE (NEGATIVE)
[2020-10-19] MEDS ORDERED: ZOLO100T PO (18:55)
[2020-10-19 18:58] LABS: ALBUMIN 3.8 GM/DL (3.2-5.2); BILIRUBIN,TOTAL 0.4 MG/DL (0.2-1.0); CALCIUM LEVEL 8.9 MG/DL (8.8-10.2); CREATININE FOR GFR 1.35 MG/DL (0.55-1.30); GLOMERULAR FILTRATION RATE 40.5 (>39); POTASSIUM SERUM 3.8 MEQ/L (3.5-5.1); TOTAL PROTEIN 7.5 GM/DL (6.4-8.2)
[2020-10-19] MEDS: HumaLOG INSULIN (NovoLOG) PER UNIT SC SCH ×2 (18:58→22:50)
[2020-10-19] MEDS ORDERED: DRIS50003 PO (19:08)
[2020-10-19] MEDS ORDERED: NITROGLYCERIN 0.4 MG SUBL TABLET SL PRN (19:50)
[2020-10-19 21:27] VITALS: BP 158/71
[2020-10-19] MEDS: NS 1,000 ML IV SCH (23:00)
[2020-10-19 23:01] VITALS: BP 156/46
[2020-10-19] MEDS: GABAPENTIN 300 MG CAP PO SCH (23:01)
[2020-10-19] MEDS: CARVedilol 12.5 MG TAB PO SCH (23:01)
[2020-10-19] MEDS: SERTRALINE 100 MG TAB PO SCH (23:01)
[2020-10-19] MEDS: ATORVASTATIN 20 MG TAB PO SCH (23:01)
[2020-10-19] MEDS: PANTOPRAZOLE 40MG VIAL (C9113 PER 1) IV SCH (23:01)
[2020-10-20] MEDS: LEVEMIR (INSULIN DETEMIR) 1 UNITS/0.01ML SC SCH ×2 (01:59→22:56)
[2020-10-20 02:32] LABS: ALBUMIN 3.2 GM/DL (3.2-5.2); BILIRUBIN,TOTAL 0.6 MG/DL (0.2-1.0); CALCIUM LEVEL 8.9 MG/DL (8.8-10.2); CREATININE FOR GFR 1.24 MG/DL (0.55-1.30); GLOMERULAR FILTRATION RATE 44.7 (>39); POTASSIUM SERUM 4.5 MEQ/L (3.5-5.1); TOTAL PROTEIN 6.7 GM/DL (6.4-8.2)
[2020-10-20 06:00] VITALS: BP 111/52
[2020-10-20 06:26] LABS: HEMATOCRIT 32.4 % (36.0-47.0); MEAN CORPUSCULAR HEMOGLOBIN 29.7 pg (27.0-33.0); MEAN CORPUSCULAR HGB CONC 32.1 g/dl (32.0-36.5); MEAN CORPUSCULAR VOLUME 92.6 fl (80.0-96.0); PLATELET COUNT, AUTOMATED 219 10^3/uL (150-450); WHITE BLOOD COUNT 8.7 10^3/uL (4.0-10.0)
[2020-10-20 06:37] LABS: HEMOGLOBIN 10.4 g/dl (12.0-15.5)
[2020-10-20] MEDS: NS 1,000 ML IV SCH (07:40)
[2020-10-20] MEDS: TIOTROPIUM INHALER/CAPSULE (SPIRIVA) INH SCH (08:15)
[2020-10-20] MEDS: CARVedilol 12.5 MG TAB PO SCH (09:00)
[2020-10-20] MEDS: DIGOXIN 0.125 MG TAB PO SCH (09:00)
[2020-10-20] MEDS: ENOXAPARIN 40MG/0.4ML SYRINGE (J1650 PER 10MG) SC SCH (09:25)
[2020-10-20] MEDS: HumaLOG INSULIN (NovoLOG) PER UNIT SC SCH ×4 (09:25→21:00)
[2020-10-20] MEDS: LEVOTHYROXINE 88MCG TABLET (0.088 MG) PO SCH (09:25)
[2020-10-20] MEDS: OMEPRAZOLE 20 MG CAP PO SCH (09:26)
[2020-10-20] MEDS: ASPIRIN 81MG ENTERIC TABLET PO SCH (09:29)
[2020-10-20] MEDS: SERTRALINE 100 MG TAB PO SCH ×2 (09:29→21:24)
[2020-10-20] MEDS: CYANOCOBALAMIN 500 MCG TAB PO SCH (09:29)
[2020-10-20] MEDS: FERROUS SULFATE 325MG TAB PO SCH (09:29)
[2020-10-20 10:59] LABS: ALBUMIN 3.6 GM/DL (3.2-5.2); BILIRUBIN,TOTAL 0.5 MG/DL (0.2-1.0); CALCIUM LEVEL 8.7 MG/DL (8.8-10.2); CREATININE FOR GFR 1.15 MG/DL (0.55-1.30); GLOMERULAR FILTRATION RATE 48.7 (>39); POTASSIUM SERUM 4.4 MEQ/L (3.5-5.1); TOTAL PROTEIN 6.6 GM/DL (6.4-8.2)
[2020-10-20 14:00] VITALS: BP 150/60
--- NOTE | 2020-10-20 14:20 | IPNPDOC ---
Date Seen The patient was seen on 10/20/20. Progress Note SUBJECTIVE: Bradycardia with HR 44, stopped BB, dig level wnl. ERCP planned by GI. Family concerned for patient's wellbeing in current living situation. Denied abdominal pain for me on exam today but had abdominal tenderness on exam by GI. Denies chest pain, SOB, fevers, chills. OBJECTIVE: PHYSICAL EXAMINATION: VS: Please see below CONSTITUTIONAL: No acute distress, resting comfortably, AAO x 3 EYES: PERRLA, EOM intact HENT, MOUTH: Normocephalic, atraumatic, moist mucous membranes NECK: SUPPLE, no JVD, no lymphadenopathy, no carotid bruit CV: irregularly irregular rhythm, controlled, S1S2 normal, no murmurs/rubs/gallops RESPIRATORY: Clear to auscultation bilaterally, no rales/rhonchi/wheezes GI: denies abdominal pain on exam for me. BS positive in 4 quadrants, soft, nondistended, no rebound or guarding, no organomegaly : Deferred MUSCULOSKELETAL: Normal ROM. No cyanosis, clubbing, swelling, joint deformity, extremity edema INTEGUMENTARY: Intact, no rashes, no lesions, no erythema NEUROLOGIC: Cranial Nerves II-XII are intact, no focal deficits PSYCHIATRIC: Mood and affect are normal LABORATORY DATA: Please see below IMAGING: RUQ US: Status post cholecystectomy. Dilated common bile duct 15 mm, no stone is seen in the visualized duct. CT abd/pelvis: Increased biliary dilatation as well as mild dilatation of the pancreatic duct diffusely to the ampulla of Vater. I cannot exclude a lesion or stone at the ampulla of Vater. Further evaluation may be made with MRCP. No free air or free fluid. No evidence of bowel obstruction. Sigmoid and left colonic diverticulosis without acute diverticulitis. ASSESSMENT: 75-year-old female with past medical history of Alzheimer's dementia, hypertension, atrial fibrillation, iron deficiency anemia, diabetes mellitus, history of coronary artery disease, CHF admitted under observation status for further workup of biliary ductal dilation r/o stone vs malignancy. PLAN: Biliary ductal dilation, r/o stenosis but unlikely stone -RUQ above, abdominal discomfort persists per GI, poor follow up as o/p due to dementia. No n/v overnight. -CT abd/pelvis -Bili wnl; however, alk phos, AST/ALT slightly incr -On soft diet -Plan is ERCP 10/21/20, as patient will likely not follow up as o/p -GI following Bradycardia, acute -Holding BB, digoxin level is wnl -Asymptomatic -Continue to monitor on tele Transaminitis likely 2/2 to problem #1 -C/w plan above Acute kidney injury likely 2/2 to vomiting, dehydration- resolved -Cr wnl -Stopped IVFs -Resumed torsemide only, avoid other nephrotoxic medications at this time -Daily labs Klebsiella oxytoca UTI -Afebrile, WBC wnl, asymptomatic. Hx of recurrent UTI -On prophylactic abx at home -Starting on PO levofloxacin Abnormal ECG -T wave depression in II, III, aVF, V5 and V6- similar to prior ECG on file from 03/2019 -Trop neg and denies chest pain -C/w home cardiac meds, holding statin with transaminitis Alzheimer's dementia -Stable, at baseline -Concern expressed by family that patient's follow up with physicians o/p are poor due to this -C/w home med Hyperlipidemia -Holding statin due to incr AST/ALT Hypertension -Stable -Holding ACEi, spironolactone -Restarting home torsemide only, stopping fluids Vitamin B12 deficiency -C/w supplement daily Atrial fibrillation, chronic -Rate controlled -C/w digoxin, BB Iron deficiency anemia -C/w supplement Diabetes mellitus -Holding long acting home insulin due to poor PO intake, n/v -Q6H ISS, FS Q6H -CLD with low sugar Hypothyroidism -c/w levothyroxine Hypokalemia, chronic -C/w daily supplement Depression -STable CAD status post stent placement 2 -Old ECG changes -Neg trop and denies chest pain -C/w ASA, BB, nitro PRN. Holding statin Emphysema -Stable on RA -C/w home inhaler Urinary retention -Bladder stimulator in place GERD -PPI DVT px -Heparin DISPOSITION: Admitted under inpatient status. ERCP tomorrow. Plan is currently discharge home when medically improved. VS, I&O, 24H, Fishbone Vital Signs/I&O Vital Signs Date Time Temp Pulse Resp B/P (MAP) Pulse Ox O2 Delivery O2 Flow Rate FiO2 10/20/20 09:00 44 10/20/20 06:00 97.2 19 111/52 (71) 96 Room Air I&O- Last 24 Hours up to 6 AM 10/20/20 06:00 Intake Total 2540 ml Output Total 200 ml Balance 2340 ml Laboratory Data 24H LABS Laboratory Tests 2 10/19/20 16:06: Urine Color YELLOW, Urine Appearance HAZY, Urine pH 6.0, Urine Specific [place] 1.024, Urine Protein NEGATIVE, Urine Glucose (UA) NEGATIVE, Urine Ketones NEGATIVE, Urine Blood NEGATIVE, Urine Nitrite NEGATIVE, Urine Bilirubin NEGATIVE, Urine Urobilinogen 0.2, Urine Leukocyte Esterase 3+H, Urine WBC (Auto) 92H, Urine RBC (Auto) 2, Urine Hyaline Casts (Auto) 0, Urine Bacteria (Auto) 1+H, Urine Squamous Epithelial Cells 0, Urine Mucus (Auto) LARGE, Urine Sperm ( Auto) 10/19/20 17:49: Coronavirus (COVID-19)(PCR) NEGATIVE, Influenza Type A (RT-PCR) NEGATIVE, Influenza Type B (RT-PCR) NEGATIVE, Respiratory Syncytial Virus (PCR) NEGATIVE 10/19/20 18:15: Anion Gap 3L, Glomerular Filtration Rate 40.5, Calcium Level 8.9, Total Bilirubin 0.4, Aspartate Amino Transf (AST/SGOT) 44H, Alanine Aminotransferase (ALT/SGPT) 68, Alkaline Phosphatase 163H, Total Protein 7.5, Albumin 3.8, Albumin/Globulin Ratio 1.0L 10/19/20 21:43: Bedside Glucose (Misc Panel) 87 10/20/20 01:53: Anion Gap 4L, Glomerular Filtration Rate 44.7, Calcium Level 8.9, Total Bilirubin 0.6, Aspartate Amino Transf (AST/SGOT) 111H, Alanine Aminotransferase (ALT/SGPT) 84H, Alkaline Phosphatase 158H, Total Protein 6.7, Albumin 3.2, Albumin/Globulin Ratio 0.9L 10/20/20 06:14: Nucleated Red Blood Cells % (auto) 0.0 10/20/20 06:33: Bedside Glucose (Misc Panel) 120H 10/20/20 09:56: Anion Gap 3L, Glomerular Filtration Rate 48.7, Calcium Level 8.7L, Total Bilirubin 0.5, Aspartate Amino Transf (AST/SGOT) 82H, Alanine Aminotransferase (ALT/SGPT) 102H, Alkaline Phosphatase 192H, Total Protein 6.6, Albumin 3.6, Albumin/Globulin Ratio 1.2 10/20/20 11:33: Bedside Glucose (Misc Panel) 133H CBC/BMP Laboratory Tests 10/19/20 18:15 10/20/20 01:53 10/20/20 06:14 10/20/20 09:56 Microbiology Microbiology 10/19/20 Urine Culture, Received Pending Current Medications Current Medications Medications (Trade) Dose Ordered Sig/Shirley Route PRN Reason Start Time Stop Time Status Last Admin Dose Admin Aspirin (Ecotrin) 81 mg DAILY PO 10/20/20 09:00 10/20/20 09:29 Atorvastatin Calcium (Lipitor) 80 mg QHS PO 10/19/20 21:00 10/19/20 23:01 Carvedilol (COReg) 12.5 mg BID PO 10/19/20 21:00 10/20/20 14:06 DC 10/19/20 23:01 Cyanocobalamin (Vitamin B12) 1,000 mcg DAILY PO 10/20/20 09:00 10/20/20 09:29 Dextrose (Dextrose 50%) 25 ml ASDIRECTED PRN IV SEE LABEL COMMENTS 10/19/20 17:20 Diatrizoate Meglum/ Diatrizoate Sod (Gastrografin) 10 ml Q30M PO 10/19/20 13:50 10/19/20 14:21 DC 10/19/20 14:00 Digoxin (Lanoxin) 0.125 mg DAILY PO 10/20/20 09:00 Enoxaparin Sodium (Lovenox) 40 mg DAILY SC 10/20/20 09:00 10/20/20 09:25 Ferrous Sulfate (Ferrous Sulfate) 325 mg DAILY PO 10/20/20 09:00 10/20/20 09:29 Gabapentin (Neurontin) 300 mg QHS PO 10/19/20 21:00 10/19/20 23:01 Glucagon (Glucagon) 1 mg ASDIRECTED PRN SC SEE LABEL COMMENTS 10/19/20 17:20 Glucose (Glucose) 16 GM ASDIRECTED PRN PO SEE LABEL COMMENTS 10/19/20 17:20 Home Med (Med Rec Complete!) ASDIRECTED XX 10/19/20 19:10 10/19/20 19:14 DC Insulin Detemir (Levemir Insulin) 5 units QHS SC 10/19/20 21:00 Insulin Human Lispro (HumaLOG INSULIN) SEE PROTOCOL TABLE AC SC 10/19/20 17:30 10/20/20 13:09 Insulin Human Lispro (HumaLOG INSULIN) SEE PROTOCOL TABLE QHS SC 10/19/20 21:00 Levothyroxine Sodium (Synthroid) 88 mcg DAILY PO 10/20/20 09:00 10/20/20 09:25 Morphine Sulfate (Morphine Sulfate Inj) 1 mg Q6H PRN IV MODERATE/SEVERE PAIN (PS 5-10) 10/19/20 17:20 Nitroglycerin (Nitrostat (1/ 150)) 0.4 mg Q5MP PRN SL CHEST PAIN 10/19/20 19:50 Omeprazole (PriLOSEC) 20 mg DAILY PO 10/20/20 09:00 10/20/20 09:26 Ondansetron HCl (ZOFRAN INJection) 4 mg Q4HP PRN IV NAUSEA OR VOMITING 10/19/20 17:20 Pantoprazole Sodium (Protonix) 40 mg Q24H IV 10/19/20 21:00 10/19/20 23:01 Sertraline HCl (Zoloft) 100 mg BID PO 10/19/20 21:00 10/20/20 09:29 Sodium Chloride 1,000 ml @ 100 mls/hr Q10H IV 10/19/20 17:20 10/20/20 07:40 Sodium Chloride 1,000 ml @ 150 mls/hr Q6H40M IV 10/19/20 14:40 10/19/20 18:37 DC 10/19/20 15:19 Tiotropium [place] (Spiriva Handihaler) 1 inhalation DAILY@0800 INH 10/20/20 08:00 10/20/20 08:15 Vitamin D (Drisdol) 1 units Q14D PO 10/24/20 09:00 Allergies Coded Allergies: No Known Allergies (Unverified , 12/18/18) Ceci Alcocer MD Oct 20, 2020 14:20
--- NOTE | 2020-10-20 15:42 | ECGEPIP ---
[facility] - ED Test Date: 2020-10-19 Pat Name: DARBY LUA Department: Room: - Gender: Female Director Cloud [employer]: NICHOLAS : 1945 Requested By: GERMAN Cook Order Number: [id number] Reading MD: Juancarlos Chicas Measurements Intervals [place] Rate: 58 P: NE: QRS: 86 QRSD: 94 T: 268 QT: 370 QTc: 363 Interpretive Statements Atrial fibrillation with slow ventricular response Suspect previous septal ID, age undetermined Nonspecific ST-T wave abnormalities Extensive artifact Similar to tracing done 07-22-18 but with more artifact Electronically Signed on 10-20-2020 15:41:46 EDT by Juancarlos Chicas
[2020-10-20] MEDS: TORSEMIDE 20 MG TAB PO SCH (16:20)
[2020-10-20 18:27] LABS: ALBUMIN 3.4 GM/DL (3.2-5.2); BILIRUBIN,TOTAL 0.5 MG/DL (0.2-1.0); CALCIUM LEVEL 8.5 MG/DL (8.8-10.2); CREATININE FOR GFR 1.19 MG/DL (0.55-1.30); GLOMERULAR FILTRATION RATE 46.8 (>39); TOTAL PROTEIN 6.8 GM/DL (6.4-8.2)
--- NOTE | 2020-10-20 20:20 | CR.PDOC ---
General Date of Consultation: Oct 20, 2020 Referring Provider: Ceci Alcocer MD Attending Physician: ELIAS SIERRA MD Consultation Primary physician/ hospitalist: - Dr. Alcocer Reason for consult: - Abnormal liver panel and CT scan. HPI: 75-year-old female patient with Alzheimer's dementia ( AAO x 3 and able to provide history), HTN, DM type 2, CAD, CHF and atrial fibrillation ( on ASA 81 mg , Digoxin), prior Cholecystectomy around 2 years ago ( outside [facility] as per patient for gallstones), presented to [facility] emergency room with nausea, vomiting and abdominal pain. Patient was noted to have dilated CBD and Pancreatic duct on CT scan and GI was consulted for the same. Patient reports acute on set nausea with upper abdominal pain, with recurrent vomitings, which started on 10/18/2020. she reported upper abdominal pain, which she did report slightly improved but on examination reported 8/10 intensity, mostly in the epigastric and slightly right upper quadrant area. Patient reports she was unable to tolerate any oral diet but denies any fever, chills, chest pain, and diarrhea. She also reports having chronic urinary issues and has a bladder stimulator for control of the urinary incontinence. Pertinent negative GI symptoms: Patient denies fever, sick contacts, recent travel, early satiety or unintentional weight loss. No history of hematemesis, melena or hematochezia. Patient reports regular bowel movements. Review of Systems: GI: as stated above CVS: No chest pain, No palpitations, No leg swelling. RS: No Shortness of breath, No Wheezing, no cough RESULTS ENGINEER: No dizziness, No motor weakness, No sensory problems Hematology: No bruising, No gum bleeding, Musculoskeletal: No joint pain, ambulating well. Skin: No rash : No hematuria, No burning sensation of the urine ENT: No ear discharge/ pain, No dysphagia. Eyes: No photophobia. Jaundice Home medications: reviewed. Antithrombotic agents: - on ASA 81 mg. Medical h/o: As above. Surgical h/o: None on abdomen. Social h/o: Alcohol: - Denies , smoking: Denies, IVDA/ drugs: Denies. Family h/o of GI cancers - None Prior Endoscopies: None as per patient. ON review of the records - showed EGD and Colonosocpy by Dr. Mack in 2013- for [place] - showed normal EGD and Colonoscopy - diverticulosis. Prior GI evaluations: - None in outpatient GI clinic. Exam: Vitals: reviewed General: Alert and oriented x 3, not in distress, able to answer appropriately but does not recall details that well. HEENT: NO pallor, no icterus. Normal oropharynx, NO cervical lymph nodes. Chest: symmetric with bilateral clear air entry, CVS: S1, S2 heard, normal, no murmurs . Abdomen: non-distended, no surgical scars, soft, non-tender, no palpable masses, normal bowel sounds heard. Rectal exam: Patient refused / Deferred at this time Extremities: no pedal edema, pulses palpable. RESULTS ENGINEER: no focal motor or sensory deficits. Moves all extremities Skin: no rash. Labs: reviewed. Imaging: reviewed. Impression: - Acute onset symptoms of nausea and vomiting and abdominal pain with prior history of cholecystectomy for gallstones, labs showing abnormal liver chemistries, and imaging tests showing dilated CBD and PD -- Needs further evaluation . DDx-- Ampullary mass vs SOD vs distal CBD stone vs pancreatic mass. Recommendations: - Patient educated about the test results, possible differential diagnoses and All questions answered. As per patient request , patient's daughter, son-in law and her grand daughter were updated on the above over phone and all questions answered. - In view of persistent symptoms and abnormal liver enzymes suggesting biliary obstruction, discussed the different diagnostic and therapeutic options for management in details. As per discussion of the risks and benefits, patient wanted to proceed with therapeutic ERCP with biliary drainage first and then to follow for EUS for further diagnostic evaluation in [place]. ( patient cannot get MRI testing due to bladder stimulator and EUS is not available in [facility]). I also discussed about transfer as well but patient wanted to proceed with ERCP here. I reviewed these with patient family as well. - Clear liquid diet for now. - NPO after 8 AM for ERCP. - Will proceed with ERCP with brush cytology and CBD stenting tomorrow. The procedure, indications, risks (bleeding, perforation, infection, hypotension, respiratory depression, allergy, need for endotracheal intubation, surgery, colostomy, cardiac arrest, even ), benefits, limitations (e.g., missing a lesion), and all other alternatives (including no intervention) were explained to the patient who understood and agreed for the procedure. - Close monitoring for vital and clinical symptoms. Plan of care discussed with patient and primary team. Patient verbalized understanding and agreed with the plan. Vital Signs/I&O Vital Signs Date Time Temp Pulse Resp B/P (MAP) Pulse Ox O2 Delivery O2 Flow Rate FiO2 10/20/20 09:00 44 10/20/20 06:00 97.2 19 111/52 (71) 96 Room Air I&O- Last 24 Hours up to 6 AM 10/20/20 06:00 Intake Total 2540 ml Output Total 200 ml Balance 2340 ml Laboratory Data Labs 24H Laboratory Tests 2 10/19/20 13:12: Immature Granulocyte % (Auto) 0.5, Neutrophils (%) (Auto) 79.8H, Lymphocytes (%) (Auto) 13.4L, Monocytes (%) (Auto) 5.7, Eosinophils (%) (Auto) 0.4, Basophils (%) (Auto) 0.2, Neutrophils # (Auto) 7.4, Lymphocytes # (Auto) 1.2L, Monocytes # (Auto) 0.5, Eosinophils # (Auto) 0.0, Basophils # (Auto) 0.0, Nucleated Red Blood Cells % (auto) 0.0, Anion Gap 5L, Glomerular Filtration Rate 32.1L, Calcium Level 9.3, Total Bilirubin 0.7, Direct Bilirubin 0.2, Aspartate Amino T ransf (AST/SGOT) 47H, Alanine Aminotransferase (ALT/SGPT) 81H, Alkaline Phosphatase 180H, Total Creatine Kinase 57, Creatine Kinase MB 1.6, Creatine Kinase MB Relative Index 2.81, Troponin I < 0.02, Total Protein 7.7, Albumin 4.3, Albumin/Globulin Ratio 1.3, Lipase 151, Digoxin Level 1.9 10/19/20 16:06: Urine Color YELLOW, Urine Appearance HAZY, Urine pH 6.0, Urine Specific [place] 1.024, Urine Protein NEGATIVE, Urine Glucose (UA) NEGATIVE, Urine Ketones NEGATIVE, Urine Blood NEGATIVE, Urine Nitrite NEGATIVE, Urine Bilirubin NEGATIVE, Urine Urobilinogen 0.2, Urine Leukocyte Esterase 3+H, Urine WBC (Auto) 92H, Urine RBC (Auto) 2, Urine Hyaline Casts (Auto) 0, Urine Bacteria (Auto) 1+H, Urine Squamous Epithelial Cells 0, Urine Mucus (Auto) LARGE, Urine Sperm (Auto) 10/19/20 17:49: Coronavirus (COVID-19)(PCR) NEGATIVE, Influenza Type A (RT-PCR) NEGATIVE, Influenza Type B (RT-PCR) NEGATIVE, Respiratory Syncytial Virus (PCR) NEGATIVE 10/19/20 18:15: Anion Gap 3L, Glomerular Filtration Rate 40.5, Calcium Level 8.9, Total Bilir ubin 0.4, Aspartate Amino Transf (AST/SGOT) 44H, Alanine Aminotransferase (ALT/SGPT) 68, Alkaline Phosphatase 163H, Total Protein 7.5, Albumin 3.8, Albumin/Globulin Ratio 1.0L 10/19/20 21:43: Bedside Glucose (Misc Panel) 87 10/20/20 01:53: Anion Gap 4L, Glomerular Filtration Rate 44.7, Calcium Level 8.9, Total Bilirubin 0.6, Aspartate Amino Transf (AST/SGOT) 111H, Alanine Aminotransferase (ALT/SGPT) 84H, Alkaline Phosphatase 158H, Total Protein 6.7, Albumin 3.2, Albumin/Globulin Ratio 0.9L 10/20/20 06:14: Nucleated Red Blood Cells % (auto) 0.0 10/20/20 06:33: Bedside Glucose (Misc Panel) 120H 10/20/20 09:56: Anion Gap 3L, Glomerular Filtration Rate 48.7, Calcium Level 8.7L, Total Bilirubin 0.5, Aspartate Amino Transf (AST/SGOT) 82H, Alanine Aminotransferase (ALT/SGPT) 102H, Alkaline Phosphatase 192H, Total Protein 6.6, Albumin 3.6, Albumin/Globulin Ratio 1.2 10/20/20 11:33: Bedside Glucose (Misc Panel) 133H CBC/BMP Laboratory Tests 10/19/20 13:12 10/19/20 18:15 10/20/20 01:53 10/20/20 06:14 10/20/20 09:56 Microbiology Microbiology 10/19/20 Urine Culture, Received Pending Allergies Coded Allergies: No Known Allergies (Unverified , 12/18/18) Home Medications Scheduled Aspirin (Aspirin EC) 81 Mg Tab, 81 MG PO DAILY, (Reported) Atorvastatin Calcium (Atorvastatin Calcium) 80 Mg Tablet, 80 MG PO QHS, (Reported) Carvedilol (Coreg) 12.5 Mg Tab, 12.5 MG PO BID, (Reported) Cyanocobalamin (Vitamin B-12) (Vitamin B-12) 1,000 Mcg Tab, 1,000 MCG PO DAILY, (Reported) Digoxin (Digoxin) 125 Mcg Tablet, 125 MCG PO DAILY, (Reported) Ergocalciferol (Vitamin D2) (Drisdol) 1,250 Mcg Capsule, 1,250 MCG PO Q2WK, (Reported) 1ST AND 15TH Ferrous Sulfate (Ferrous Sulfate) 325 Mg Tab, 325 MG PO DAILY, (Reported) Gabapentin (Gabapentin) 300 Mg Capsule, 300 MG PO QHS, (Reported) Glipizide (Glipizide) 5 Mg Tab, 5 MG PO BID, (Reported) Insulin Glargine,Hum.rec.anlog (Basaglar Kwikpen U-100) 100 Unit/Ml Inj, 10 UNIT SC QHS, (Reported) Levothyroxine Sodium (Synthroid) 88 Mcg Tablet, 88 MCG PO DAILY, (Reported) Liraglutide (Victoza 2-Shadi) 0.6 Mg/0.1 Ml Pen.injctr, 1.8 MG SC QHS, (Reported) Lisinopril (Lisinopril) 2.5 Mg Tablet, 2.5 MG PO QHS, (Reported) Nitroglycerin (Nitrostat) 0.4 Mg Tab.subl, 0.4 MG SL NITRO for chest pain, (Reported) Omeprazole (Omeprazole) 20 Mg Cap, 20 MG PO DAILY, (Reported) Potassium Chloride (Klor-Con M10) 10 Meq Tabcr, 20 MEQ PO BID, (Reported) Sertraline Hcl (Zoloft) 100 Mg Tablet, 100 MG PO BID, (Reported) Spironolactone (Spironolactone) 25 Mg Tab, 25 MG PO DAILY, (Reported) Sulfamethoxazole/Trimethoprim (Sulfamethoxazole-Tmp Ds Tablet) 1 Each Tablet, 1 TAB PO DAILY, (Reported) Tiotropium [place] (Spiriva) 18 Mcg Cap.w.dev, 1 INHALATION INH DAILY, (Reported) Torsemide (Torsemide) 20 Mg Tab, 20 MG PO DAILY, (Reported) Scheduled PRN Loperamide HCl (Loperamide) 2 Mg Capsule, 2 CAP PO Q6H PRN for AFTER EACH LOOSE STOOL, (Reported) ELIAS SIERRA MD Oct 20, 2020 11:39
[2020-10-20] MEDS: ATORVASTATIN 20 MG TAB PO SCH (21:24)
[2020-10-20] MEDS: GABAPENTIN 300 MG CAP PO SCH (21:24)
[2020-10-20] MEDS: PANTOPRAZOLE 40MG VIAL (C9113 PER 1) IV SCH (21:24)
[2020-10-20 22:00] VITALS: BP 143/58
[2020-10-21] VITALS (7 sets, daily range): BP systolic 130–147; BP diastolic 51–60
[2020-10-21 02:07] LABS: HEMATOCRIT 33.8 % (36.0-47.0); HEMOGLOBIN 11.2 g/dl (12.0-15.5); MEAN CORPUSCULAR HEMOGLOBIN 30.4 pg (27.0-33.0); MEAN CORPUSCULAR HGB CONC 33.1 g/dl (32.0-36.5); MEAN CORPUSCULAR VOLUME 91.8 fl (80.0-96.0); PLATELET COUNT, AUTOMATED 250 10^3/uL (150-450); RED BLOOD COUNT 3.68 10^6/uL (4.00-5.40); WHITE BLOOD COUNT 7.8 10^3/uL (4.0-10.0)
[2020-10-21 02:32] LABS: ALBUMIN 3.5 GM/DL (3.2-5.2); BILIRUBIN,TOTAL 0.5 MG/DL (0.2-1.0); CALCIUM LEVEL 8.7 MG/DL (8.8-10.2); CREATININE FOR GFR 1.17 MG/DL (0.55-1.30); GLOMERULAR FILTRATION RATE 47.7 (>39); POTASSIUM SERUM 3.5 MEQ/L (3.5-5.1); TOTAL PROTEIN 6.9 GM/DL (6.4-8.2)
[2020-10-21] MEDS: LevoFLOXacin 250 MG TABLET PO SCH (05:41)
[2020-10-21] MEDS ORDERED: LevoFLOXacin 500 MG TABLET PO SCH (06:00)
[2020-10-21] MEDS: HumaLOG INSULIN (NovoLOG) PER UNIT SC SCH ×4 (07:30→20:26)
[2020-10-21] MEDS: TIOTROPIUM INHALER/CAPSULE (SPIRIVA) INH SCH (08:24)
[2020-10-21 10:51] LABS: ALBUMIN 3.5 GM/DL (3.2-5.2); BILIRUBIN,TOTAL 0.5 MG/DL (0.2-1.0); CALCIUM LEVEL 7.7 MG/DL (8.8-10.2); CREATININE FOR GFR 1.12 MG/DL (0.55-1.30); GLOMERULAR FILTRATION RATE 50.2 (>39); POTASSIUM SERUM 3.7 MEQ/L (3.5-5.1); TOTAL PROTEIN 6.5 GM/DL (6.4-8.2)
--- NOTE | 2020-10-21 12:06 | IPNPDOC ---
Date Seen The patient was seen on 10/21/20. Progress Note SUBJECTIVE: No bradycardia since 10/20/20. Nausea with some vomiting, abdominal discomfort overnight- diet switched back to CLD. ERCP today. Denies chest pain, SOB, fevers, chills. OBJECTIVE: PHYSICAL EXAMINATION: VS: Please see below CONSTITUTIONAL: No acute distress, resting comfortably, AAO x 3 EYES: PERRLA, EOM intact HENT, MOUTH: Normocephalic, atraumatic, moist mucous membranes NECK: SUPPLE, no JVD, no lymphadenopathy, no carotid bruit CV: irregularly irregular rhythm, controlled, S1S2 normal, no murmurs/rubs/gallops RESPIRATORY: Clear to auscultation bilaterally, no rales/rhonchi/wheezes GI: denies abdominal pain on exam for me. BS positive in 4 quadrants, soft, nondistended, no rebound or guarding, no organomegaly : Deferred MUSCULOSKELETAL: Normal ROM. No cyanosis, clubbing, swelling, joint deformity, extremity edema INTEGUMENTARY: Intact, no rashes, no lesions, no erythema NEUROLOGIC: Cranial Nerves II-XII are intact, no focal deficits PSYCHIATRIC: Mood and affect are normal LABORATORY DATA: Please see below IMAGING: RUQ US: Status post cholecystectomy. Dilated common bile duct 15 mm, no stone is seen in the visualized duct. CT abd/pelvis: Increased biliary dilatation as well as mild dilatation of the pancreatic duct diffusely to the ampulla of Vater. I cannot exclude a lesion or stone at the ampulla of Vater. Further evaluation may be made with MRCP. No free air or free fluid. No evidence of bowel obstruction. Sigmoid and left colonic diverticulosis without acute diverticulitis. ASSESSMENT: 75-year-old female with past medical history of Alzheimer's dementia, hypertension, atrial fibrillation, iron deficiency anemia, diabetes mellitus, history of coronary artery disease, CHF admitted under observation status for further workup of biliary ductal dilation r/o stone vs malignancy. PLAN: Biliary ductal dilation, r/o stenosis but unlikely stone -n/v/abdominal discomfort overnight -AST/ALT and alk phos improved. -CT abd/pelvis, RUQ US above -Switched back to CLD -Procedure could have likely been done o/p;however, due to patient's dementia and poor follow, decision was made to do inpatient. ERCP today, f/u results -GI following (Dr. Escudero) Bradycardia, acute- resolved -Held BB 10/20/20, holding parameters placed -Digoxin level is wnl -Asymptomatic -Continue to monitor on tele Transaminitis likely 2/2 to problem #1- resolved -Daily CMP -Plan above Klebsiella oxytoca UTI -Afebrile, WBC wnl, asymptomatic. Hx of recurrent UTI -On prophylactic abx at home but not one that covers current bacteria -Starting on PO levofloxacin (Day 2) Abnormal ECG -T wave depression in II, III, aVF, V5 and V6- similar to prior ECG on file from 03/2019 -Trop neg and denies chest pain -C/w home cardiac meds, holding statin with transaminitis Alzheimer's dementia -Stable, at baseline -Concern expressed by family that patient's follow up with physicians o/p are poor due to this -C/w home med Hyperlipidemia -Holding statin due to incr AST/ALT Hypertension -Stable -Holding ACEi, spironolactone -Restarting home torsemide only, stopping fluids Vitamin B12 deficiency -C/w supplement daily Atrial fibrillation, chronic -Rate controlled -C/w digoxin, BB Iron deficiency anemia -C/w supplement Diabetes mellitus -BS stable -AC/HS ISS, FS -CLD with low sugar Hypothyroidism -c/w levothyroxine Hypokalemia, chronic -C/w daily supplement Depression -Stable CAD status post stent placement 2 -Old ECG changes -Neg trop and denies chest pain -C/w ASA, BB, nitro PRN. Holding statin Emphysema -Stable on RA -C/w home inhaler Urinary retention -Bladder stimulator in place GERD -PPI DVT px -Heparin Resolved issues: Acute kidney injury likely 2/2 to vomiting, dehydration DISPOSITION: Admitted under inpatient status. ERCP today. Plan is currently discharge home when medically improved. VS, I&O, 24H, Fishbone Vital Signs/I&O Vital Signs Date Time Temp Pulse Resp B/P (MAP) Pulse Ox O2 Delivery O2 Flow Rate FiO2 10/21/20 06:00 98.3 74 18 139/60 (86) 95 Room Air I&O- Last 24 Hours up to 6 AM 10/21/20 06:00 Intake Total 2805 ml Output Total 1325 ml Balance 1480 ml Laboratory Data 24H LABS Laboratory Tests 2 10/20/20 16:18: Methicillin-Resist S.aureus DNA PCR NOT DETECTED 10/20/20 16:59: Bedside Glucose (Misc Panel) 175H 10/20/20 17:49: Anion Gap 3L, Glomerular Filtration Rate 46.8, Calcium Level 8.5L, Total Bilirubin 0.5, Aspartate Amino Transf (AST/SGOT) 58H, Alanine Aminotransferase (ALT/SGPT) 90H, Alkaline Phosphatase 190H, Total Protein 6.8, Albumin 3.4, Albumin/Globulin Ratio 1.0L 10/20/20 20:15: Bedside Glucose (Misc Panel) 198H 10/21/20 01:51: Nucleated Red Blood Cells % (auto) 0.0, Anion Gap 5L, Glomerular Filtration Rate 47.7, Calcium Level 8.7L, Total Bilirubin 0.5, Aspartate Amino Transf (AST/SGOT) 49H, Alanine Aminotransferase (ALT/SGPT) 79H, Alkaline Phosphatase 182H, Total Protein 6.9, Albumin 3.5, Albumin/Globulin Ratio 1.0L 10/21/20 06:42: Bedside Glucose (Misc Panel) 155H 10/21/20 10:02: Anion Gap 5L, Glomerular Filtration Rate 50.2, Calcium Level 7.7L, Total Bilirubin 0.5, Aspartate Amino Transf (AST/SGOT) 37, Alanine Aminotransferase (ALT/SGPT) 70, Alkaline Phosphatase 179H, Total Protein 6.5, Albumin 3.5, Albumin/Globulin Ratio 1.2 CBC/BMP Laboratory Tests 10/20/20 17:49 10/21/20 01:51 10/21/20 10:02 Microbiology Microbiology 10/19/20 Urine Culture - Final, Complete Escherichia Coli Current Medications Current Medications Medications (Trade) Dose Ordered Sig/Shirley Route PRN Reason Start Time Stop Time Status Last Admin Dose Admin Aspirin (Ecotrin) 81 mg DAILY PO 10/20/20 09:00 10/20/20 09:29 Atorvastatin Calcium (Lipitor) 80 mg QHS PO 10/19/20 21:00 10/20/20 21:24 Carvedilol (COReg) 12.5 mg BID PO 10/19/20 21:00 10/20/20 14:06 DC 10/19/20 23:01 Cyanocobalamin (Vitamin B12) 1,000 mcg DAILY PO 10/20/20 09:00 10/20/20 09:29 Dextrose (Dextrose 50%) 25 ml ASDIRECTED PRN IV SEE LABEL COMMENTS 10/19/20 17:20 Diatrizoate Meglum/ Diatrizoate Sod (Gastrografin) 10 ml Q30M PO 10/19/20 13:50 10/19/20 14:21 DC 10/19/20 14:00 Digoxin (Lanoxin) 0.125 mg DAILY PO 10/20/20 09:00 Enoxaparin Sodium (Lovenox) 40 mg DAILY SC 10/20/20 09:00 10/20/20 09:25 Ferrous Sulfate (Ferrous Sulfate) 325 mg DAILY PO 10/20/20 09:00 10/20/20 09:29 Gabapentin (Neurontin) 300 mg QHS PO 10/19/20 21:00 10/20/20 21:24 Glucagon (Glucagon) 1 mg ASDIRECTED PRN SC SEE LABEL COMMENTS 10/19/20 17:20 Glucose (Glucose) 16 GM ASDIRECTED PRN PO SEE LABEL COMMENTS 10/19/20 17:20 Home Med (Med Rec Complete!) ASDIRECTED XX 10/19/20 19:10 10/19/20 19:14 DC Insulin Detemir (Levemir Insulin) 5 units QHS SC 10/19/20 21:00 Insulin Human Lispro (HumaLOG INSULIN) SEE PROTOCOL TABLE AC SC 10/19/20 17:30 10/20/20 17:48 Insulin Human Lispro (HumaLOG INSULIN) SEE PROTOCOL TABLE QHS SC 10/19/20 21:00 Levofloxacin (Levaquin) 250 mg DAILY@06 PO 10/21/20 06:00 10/23/20 05:59 10/21/20 05:41 Levofloxacin (Levaquin) 500 mg DAILY@06 PO 10/21/20 06:00 10/20/20 14:54 DC Levothyroxine Sodium (Synthroid) 88 mcg DAILY PO 10/20/20 09:00 10/20/20 09:25 Morphine Sulfate (Morphine Sulfate Inj) 1 mg Q6H PRN IV MODERATE/SEVERE PAIN (PS 5-10) 10/19/20 17:20 10/20/20 16:26 Nitroglycerin (Nitrostat (1/ 150)) 0.4 mg Q5MP PRN SL CHEST PAIN 10/19/20 19:50 Omeprazole (PriLOSEC) 20 mg DAILY PO 10/20/20 09:00 10/20/20 09:26 Ondansetron HCl (ZOFRAN INJection) 4 mg Q4HP PRN IV NAUSEA OR VOMITING 10/19/20 17:20 10/20/20 16:26 Pantoprazole Sodium (Protonix) 40 mg Q24H IV 10/19/20 21:00 10/20/20 21:24 Sertraline HCl (Zoloft) 100 mg BID PO 10/19/20 21:00 10/20/20 21:24 Sodium Chloride 1,000 ml @ 100 mls/hr Q10H IV 10/19/20 17:20 10/20/20 14:15 DC 10/20/20 07:40 Sodium Chloride 1,000 ml @ 150 mls/hr Q6H40M IV 10/19/20 14:40 10/19/20 18:37 DC 10/19/20 15:19 Tiotropium Underwood (Spiriva Handihaler) 1 inhalation DAILY@0800 INH 10/20/20 08:00 10/21/20 08:24 Torsemide (Demadex) 20 mg DAILY PO 10/20/20 15:00 10/20/20 16:20 Vitamin D (Drisdol) 1 units Q14D PO 10/24/20 09:00 Allergies Coded Allergies: No Known Allergies (Unverified , 12/18/18) Ceci Alcocer MD Oct 21, 2020 12:06
[2020-10-21] MEDS ORDERED: ISOVUE-300 61% 50ML VIAL As Ordered ONE (13:44)
[2020-10-21] MEDS ORDERED: propofoL 200 MG/20 ML VIAL As Ordered ONE (16:01)
[2020-10-21] MEDS ORDERED: LIDOCAINE 2% 100MG/5ML SDV (FOR ANES.) As Ordered ONE (16:01)
[2020-10-21] MEDS ORDERED: ONDANSETRON 4MG/2ML VIAL As Ordered ONE (16:01)
[2020-10-21] MEDS ORDERED: METOCLOPRAMIDE INJ 10MG/2ML VIAL (J2765 PER 1) As Ordered ONE (16:01)
[2020-10-21] MEDS ORDERED: ROCURONIUM BROMIDE 50 MG/5 ML VIAL As Ordered ONE (16:01)
[2020-10-21] MEDS ORDERED: MIDAZOLAM INJ 2MG/2ML VIAL (J2250 PER 1MG) As Ordered ONE (16:02)
[2020-10-21] MEDS ORDERED: fentaNYL 100 MCG/2 ML INJECTION (J3010) As Ordered ONE (16:02)
[2020-10-21] MEDS ORDERED: hydrALAZINE 20MG/ML 1ML VIAL (J0360 PER 20MG) As Ordered ONE ×2 (17:26→18:55)
[2020-10-21] MEDS ORDERED: SUGAMMADEX SODIUM 500 MG/5 ML VIAL (BRIDION) As Ordered ONE (17:41)
[2020-10-21] MEDS: ASPIRIN 81MG ENTERIC TABLET PO SCH (17:56)
[2020-10-21] MEDS: TORSEMIDE 20 MG TAB PO SCH (17:56)
[2020-10-21] MEDS: DIGOXIN 0.125 MG TAB PO SCH (17:57)
[2020-10-21] MEDS: FERROUS SULFATE 325MG TAB PO SCH (17:57)
[2020-10-21] MEDS: SERTRALINE 100 MG TAB PO SCH ×2 (17:58→20:34)
[2020-10-21] MEDS: LEVOTHYROXINE 88MCG TABLET (0.088 MG) PO SCH (17:58)
[2020-10-21] MEDS: OMEPRAZOLE 20 MG CAP PO SCH (17:58)
[2020-10-21] MEDS: CYANOCOBALAMIN 500 MCG TAB PO SCH (17:58)
[2020-10-21] MEDS: ENOXAPARIN 40MG/0.4ML SYRINGE (J1650 PER 10MG) SC SCH (18:00)
[2020-10-21] MEDS ORDERED: GLUCAGON INJ 1MG VIAL As Ordered ONE (18:10)
[2020-10-21] MEDS ORDERED: LABETALOL 100MG/20ML VIAL As Ordered ONE (18:58)
--- NOTE | 2020-10-21 19:18 | ROOR ---
Patient Name: Cris Fields Procedure Date: 10/21/2020 1:54 PM Date of : 1945 Age: 75 Gender: Female Note Status: Finalized Procedure: ERCP Indications: Common bile duct stricture, Periampullary tumor, Biliary dilation on Ultrasound, Elevated liver enzymes Providers: Simba Escudero MD Referring MD: 2. Inpatient 2. Inpatient, RANDY STRAUSS MD Requesting Provider: Medicines: Monitored Anesthesia Care Complications: No immediate complications. Procedure: Pre-Anesthesia Assessment: - Prior to the procedure, a History and Physical was performed, and patient medications and allergies were reviewed. The patient is competent. The risks and benefits of the procedure and the sedation options and risks were discussed with the patient. All questions were answered and informed consent was obtained. Patient identification and proposed procedure were verified by the physician, the nurse and the anesthesiologist in the procedure room. Mental Status Examination: normal. Respiratory Examination: clear to auscultation. CV Examination: normal. Prophylactic Antibiotics: The patient does not require prophylactic antibiotics. Prior Anticoagulants: The patient has taken no previous anticoagulant or antiplatelet agents. ASA Grade Assessment: II - A patient with mild systemic disease. After reviewing the risks and benefits, the patient was deemed in satisfactory condition to undergo the procedure. The anesthesia plan was to use monitored anesthesia care (MAC). Immediately prior to administration of medications, the patient was re-assessed for adequacy to receive sedatives. The heart rate, respiratory rate, oxygen saturations, blood pressure, adequacy of pulmonary ventilation, and response to care were monitored throughout the procedure. The physical status of the patient was re-assessed after the procedure. The Duodenoscope was introduced through the mouth, and advanced to the duodenum and used to inject contrast into the bile duct. The ERCP was accomplished without difficulty. The patient tolerated the procedure well. Findings: A mobile home installer film of the abdomen was obtained. Surgical clips, consistent with a previous cholecystectomy, were seen in the area of the right upper quadrant of the abdomen. The esophagus was successfully intubated under direct vision without detailed examination of the pharynx, larynx, and associated structures, and upper GI tract. The upper GI tract was grossly normal. The major papilla was bulging. The major papilla was adjacent to a diverticulum. A 0.035 inch x 260 cm straight Hydra Jagwire was passed into the biliary tree. The short-nosed traction sphincterotome was passed over the guidewire and the bile duct was then deeply cannulated. Contrast was injected. I personally interpreted the bile duct images. Ductal flow of contrast was adequate. Image quality was adequate. Contrast extended to the entire biliary tree. The main bile duct was diffusely dilated, with an obstruction. The largest diameter was 15 mm. A cholecystectomy had been performed. A long cystic duct stump originated in the middle third of the main bile duct. Biliary sphincterotomy was made with a monofilament traction (standard) sphincterotome using ERBE electrocautery. The sphincterotomy oozed blood. The biliary tree was swept with a 15 mm balloon starting at the bifurcation. Nothing was found. Cells for cytology were obtained by brushing in the lower third of the main bile duct. One 10 Fr by 5 cm plastic stent with a single external flap and a single internal flap was placed into the common bile duct. Bile flowed through the stent. The stent was in good position. Impression: - The major papilla appeared to be bulging. - The major papilla was adjacent to a diverticulum. - The entire main bile duct was dilated, with an obstruction. - The patient has had a cholecystectomy. - A biliary sphincterotomy was performed. - The biliary tree was swept and nothing was found. - Cells for cytology obtained in the lower third of the main duct. - One plastic stent was placed into the common bile duct. Recommendation: - Return patient to [facility] for [facility] care. - Patient has a contact number available for emergencies. The signs and symptoms of potential delayed complications were discussed with the patient. Return to normal activities tomorrow. Written discharge instructions were provided to the patient. - Clear liquid diet today, then advance as tolerated to high fiber diet. - No ibuprofen, naproxen, or other non-steroidal anti-inflammatory drugs. - Await cytology results. - Perform an upper endoscopic ultrasound (UEUS) at appointment to be scheduled. - Telephone GI clinic for pathology results in 1 week. - Return to primary care physician. - Return to referring service station helper for stent removal at EUS procedure or repeat ERCP in 4- 6 weeks. Procedure Code(s): --- Professional --- 37463, Endoscopic retrograde cholangiopancreatography (ERCP); with placement of endoscopic stent into biliary or pancreatic duct, including pre- and post-dilation and guide wire passage, when performed, including sphincterotomy, when performed, each stent [id number], 26, Endoscopic catheterization of the biliary ductal system, radiological supervision and interpretation Diagnosis Code(s): --- Professional --- K83.8, Other specified diseases of biliary tract K83.1, Obstruction of bile duct Z90.49, Acquired absence of other specified parts of digestive tract D49.0, Neoplasm of unspecified behavior of digestive system R74.8, Abnormal levels of other serum enzymes CPT copyright 2019 [employer]. All rights reserved. The codes documented in this report are preliminary and upon health information coder review may be revised to meet current compliance requirements. Simba Escudero MD Simba Escudero MD 10/21/2020 7:17:58 PM Electronically signed by Simba Escudero MD Number of Addenda: 0 Note Initiated On: 10/21/2020 1:54 PM Estimated Blood Loss: Estimated blood loss was minimal.
--- NOTE | 2020-10-21 19:33 | REP ---
INDICATION: ABNORMAL LIVER PANEL. COMPARISON: None TECHNIQUE: 48 seconds of fluoroscopy time FINDINGS: Varying degrees of biliary contrast opacification are noted throughout the examination which consists of 76 images. The examination has been submitted to the Department of Radiology for review. IMPRESSION: As above <Electronically signed by Joshua Clark > 10/21/202
[2020-10-21] MEDS: GABAPENTIN 300 MG CAP PO SCH (20:33)
[2020-10-21] MEDS: ATORVASTATIN 20 MG TAB PO SCH (20:34)
[2020-10-21] MEDS: LEVEMIR (INSULIN DETEMIR) 1 UNITS/0.01ML SC SCH (20:34)
[2020-10-21] MEDS: PANTOPRAZOLE 40MG VIAL (C9113 PER 1) IV SCH (20:34)
[2020-10-21] MEDS ORDERED: ONDANSETRON 4MG/2ML VIAL IV PRN (20:45)
[2020-10-21] MEDS ORDERED: fentaNYL 100 MCG/2 ML INJECTION (J3010) IV PRN (20:45)
[2020-10-21] MEDS ORDERED: LR 1,000 ML IV SCH (20:45)
[2020-10-21] MEDS ORDERED: oxyCODONE 5MG TAB PO PRN (20:45)
[2020-10-21] MEDS ORDERED: LABETALOL 100MG/20ML VIAL IV PRN (20:45)
[2020-10-21] MEDS ORDERED: HYDROMORPHONE HCL 0.5 MG/ 0.5 ML SYRINGE (J1170 PER 1) IV PRN (20:45)
[2020-10-21] MEDS ORDERED: hydrALAZINE 20MG/ML 1ML VIAL (J0360 PER 20MG) IV PRN (20:45)
[2020-10-21 20:52] LABS: ALBUMIN 3.6 GM/DL (3.2-5.2); BILIRUBIN,TOTAL 0.7 MG/DL (0.2-1.0); CALCIUM LEVEL 9.5 MG/DL (8.8-10.2); CREATININE FOR GFR 1.15 MG/DL (0.55-1.30); GLOMERULAR FILTRATION RATE 48.7 (>39); POTASSIUM SERUM 3.6 MEQ/L (3.5-5.1); TOTAL PROTEIN 6.6 GM/DL (6.4-8.2)
[2020-10-22 00:05] VITALS: BP 130/58
[2020-10-22 02:00] VITALS: BP 127/55
[2020-10-22 02:56] LABS: ALBUMIN 3.4 GM/DL (3.2-5.2); BILIRUBIN,TOTAL 0.7 MG/DL (0.2-1.0); CALCIUM LEVEL 8.6 MG/DL (8.8-10.2); CREATININE FOR GFR 1.18 MG/DL (0.55-1.30); GLOMERULAR FILTRATION RATE 47.3 (>39); POTASSIUM SERUM 3.6 MEQ/L (3.5-5.1); TOTAL PROTEIN 6.3 GM/DL (6.4-8.2)
[2020-10-22] MEDS: LevoFLOXacin 250 MG TABLET PO SCH (05:40)
[2020-10-22 06:00] VITALS: BP 138/56
[2020-10-22 06:48] LABS: HEMATOCRIT 34.4 % (36.0-47.0); HEMOGLOBIN 11.3 g/dl (12.0-15.5); MEAN CORPUSCULAR HEMOGLOBIN 30.1 pg (27.0-33.0); MEAN CORPUSCULAR HGB CONC 32.8 g/dl (32.0-36.5); MEAN CORPUSCULAR VOLUME 91.7 fl (80.0-96.0); PLATELET COUNT, AUTOMATED 254 10^3/uL (150-450); RED BLOOD COUNT 3.75 10^6/uL (4.00-5.40); WHITE BLOOD COUNT 11.5 10^3/uL (4.0-10.0)
[2020-10-22] MEDS: TIOTROPIUM INHALER/CAPSULE (SPIRIVA) INH SCH (08:10)
[2020-10-22] MEDS: HumaLOG INSULIN (NovoLOG) PER UNIT SC SCH ×2 (08:22→13:13)
[2020-10-22] MEDS: CYANOCOBALAMIN 500 MCG TAB PO SCH (08:23)
[2020-10-22] MEDS: ENOXAPARIN 40MG/0.4ML SYRINGE (J1650 PER 10MG) SC SCH (08:23)
[2020-10-22] MEDS: SERTRALINE 100 MG TAB PO SCH (08:23)
[2020-10-22] MEDS: ASPIRIN 81MG ENTERIC TABLET PO SCH (08:23)
[2020-10-22] MEDS: OMEPRAZOLE 20 MG CAP PO SCH (08:23)
[2020-10-22] MEDS: LEVOTHYROXINE 88MCG TABLET (0.088 MG) PO SCH (08:23)
[2020-10-22] MEDS: TORSEMIDE 20 MG TAB PO SCH (08:23)
[2020-10-22] MEDS: FERROUS SULFATE 325MG TAB PO SCH (08:23)
[2020-10-22] MEDS: DIGOXIN 0.125 MG TAB PO SCH (08:24)
[2020-10-22 10:00] VITALS: BP 133/55
[2020-10-22 11:02] LABS: ALBUMIN 3.5 GM/DL (3.2-5.2); BILIRUBIN,TOTAL 0.7 MG/DL (0.2-1.0); CALCIUM LEVEL 8.9 MG/DL (8.8-10.2); CREATININE FOR GFR 1.26 MG/DL (0.55-1.30); GLOMERULAR FILTRATION RATE 43.8 (>39); POTASSIUM SERUM 3.4 MEQ/L (3.5-5.1); TOTAL PROTEIN 6.5 GM/DL (6.4-8.2)
--- NOTE | 2020-10-22 12:10 | DS.PDOC ---
Discharge Summary General Date of Admission Oct 20, 2020 at 14:06 Date of Discharge 10/22/2020 Attending Physician: SRIDEVI PRATER MD Discharge Summary PROCEDURES PERFORMED DURING STAY: ERCP ADMITTING DIAGNOSES: Abdominal pain DISCHARGE DIAGNOSES: Abdominal pain with CBD obstruction s/p stenting with pathology with c/f malignancy Alzheimer's dementia Hyperlipidemia Hypertension Vitamin B12 deficiency Atrial fibrillation Iron deficiency anemia Diabetes mellitus Recurrent urinary tract infection on prophylactic levofloxacin Hypothyroidism GERD Hypokalemia, chronic Depression CAD status post stent placement 2 CHF Emphysema Chronic Urinary incontinence COMPLICATIONS/CHIEF COMPLAINT: Dilation Of Bilary Tract. HISTORY OF PRESENT ILLNESS: 75-year-old W with past medical history of Alzheimer's dementia, hypertension, atrial fibrillation, iron deficiency anemia, diabetes mellitus, history of coronary artery disease, CHF who presented to [facility] emergency room with the chief complaint of increased nausea, vomiting and abdominal pain over 24 hours. The patient reported that her symptoms began on 10/18/2020 with nausea and 10 episodes of nonbloody vomitus. She complained of epigastric/left upper quadrant pain, localized, 7/10, sharp and constant. She reported that the pain went away after several hours but then returned again on the morning of presentation in the same character same quality same location. She came to the emergency room because she felt her condition was not improving. She denied chest pain, diarrhea, chills, dizziness. She admitted to having associated shortness of breath, questionable fever, decreased appetite, lightheadedness and unsteadiness on her feet. HOSPITAL COURSE In the emergency room, vital signs showed a temperature 98.9, heart rate 71 and irregularly irregular (baseline atrial fibrillation), respiratory rate 18, blood pressure 138/91, 95% on room air. ECG showed atrial fibrillation with T-wave depressions in leads 23 and aVF, V5 and V6. When compared to prior ECG on file from 03/2019 this was similar. Troponin was negative. AST/ALT 47/81 and slightly elevated, alkaline phosphatase 180, creatinine 1.65 (baseline is within normal limits), blood sugar slightly elevated at 122. bilirubin was wnl. CBC was unrema rkable. Of note the patient does have chronic urinary tract infections for which she is on chronic oral levofloxacin. She was sent for a CT of the abdomen and pelvis which showed increased biliary dilatation as well as mild dilatation of the pancreatic duct diffusely to the ampulla of Vater, and could not exclude a lesion or stone at the ampulla of Vater. Further evaluation was suggested to be made with MRCP;however, patient has a bladder stimulator and could not go for MRCP. Dr. Escudero (GI) discussed case with ER attending and decision was made to admit and she had an ERCP with stent placement and brushings sent for cytology on 10/21. Her pain improved, tolerated a clear liquid diet that was advanced to a high fiber diet and she is now being discharged home with close GI follow up to follow up on the cytology with anticipation that she may require oncology referral. Of note, she had an E.coli UTI for which she was continued on home levaquin. DISCHARGE MEDICATIONS: Please see below. ALLERGIES: Please see below. PHYSICAL EXAMINATION ON DISCHARGE: VITAL SIGNS: Please see below. CONSTITUTIONAL: No acute distress, resting comfortably, AAO x 3 EYES: PERRLA, EOM intact HENT, MOUTH: Normocephalic, atraumatic, moist mucous membranes NECK: SUPPLE, no JVD, no lymphadenopathy, no carotid bruit CV: irregularly irregular rhythm, controlled, S1S2 normal, no murmurs/rubs/gallops RESPIRATORY: Clear to auscultation bilaterally, no rales/rhonchi/wheezes GI: BS positive in 4 quadrants, soft, nondistended, no rebound or guarding, no organomegaly MUSCULOSKELETAL: Normal ROM. No cyanosis, clubbing, swelling, joint deformity, extremity edema INTEGUMENTARY: Intact, no rashes, no lesions, no erythema NEUROLOGIC: Cranial Nerves II-XII are intact, no focal deficits PSYCHIATRIC: Mood and affect are normal LABORATORY DATA: Please see below IMAGING: RUQ US: Status post cholecystectomy. Dilated common bile duct 15 mm, no stone is seen in the visualized duct. CT abd/pelvis: Increased biliary dilatation as well as mild dilatation of the pancreatic duct diffusely to the ampulla of Vater. I cannot exclude a lesion or stone at the ampulla of Vater. Further evaluation may be made with MRCP. No free air or free fluid. No evidence of bowel obstruction. Sigmoid and left colonic diverticulosis without acute diverticulitis. ERCP: A residential mortgage underwriter film of the abdomen was obtained. Surgical clips, consistent with a previous cholecystectomy, were seen in the area of the right upper quadrant of the abdomen. The esophagus was successfully intubated under direct vision without detailed examination of the pharynx, larynx, and associated structures, and upper GI tract. The upper GI tract was grossly normal. The major papilla was bulging. The major papilla was adjacent to a diverticulum. A 0.035 inch x 260 cm straight Hydra Jagwire was passed into the biliary tree. The short-nosed traction sphincterotome was passed over the guidewire and the bile duct was then deeply cannulated. Contrast was injected. I personally interpreted the bile duct images. Ductal flow of contrast was adequate. Image quality was adequate. Contrast extended to the entire biliary tree. The main bile duct was diffusely dilated, with an obstruction. The largest diameter was 15 mm. A cholecystectomy had been performed. A long cystic duct stump originated in the middle third of the main bile duct. Biliary sphincterotomy was made with a monofilament traction (standard) sphincterotome using ERBE electrocautery. The sphincterotomy oozed blood. The biliary tree was swept with a 15 mm balloon starting at the bifurcation. Nothing was found. Cells for cytology were obtained by brushing in the lower third of the main bile duct. One 10 Fr by 5 cm plastic stent with a single external flap and a single internal flap was placed into the common bile duct. Bile flowed through the stent. The stent was in good position. Impression: - The major papilla appeared to be bulging. - The major papilla was adjacent to a diverticulum. - The entire main bile duct was dilated, with an obstruction. - The patient has had a cholecystectomy. - A biliary sphincterotomy was performed. - The biliary tree was swept and nothing was found. - Cells for cytology obtained in the lower third of the main duct. - One plastic stent was placed into the common bile duct. Recommendation: - Return patient to hospital [facility] for ongoing care. - Patient has a contact number available for emergencies. The signs and symptoms of potential delayed complications were discussed with the patient. Return to normal activities tomorrow. Written discharge instructions were provided to the patient. - Clear liquid diet today, then advance as tolerated to high fiber diet. - No ibuprofen, naproxen, or other non-steroidal anti-inflammatory drugs. - Await cytology results. - Perform an upper endoscopic ultrasound (UEUS) at appointment to be scheduled. - Telephone GI clinic for pathology results in 1 week. - Return to primary care physician. - Return to referring manager report for stent removal at EUS procedure or repeat ERCP in 4- 6 weeks. PROGNOSIS: Good ACTIVITY: As tolerated. DIET: High fiber diet DISCHARGE PLAN: Home with close PCP and GI follow up, with PCP FYI that she may require prompt oncology referral depending on pathology results from recent ERCP. DISPOSITION: Home DISCHARGE INSTRUCTIONS: Home with close PCP and GI follow up, with PCP JOSEPHI that she may require prompt oncology referral depending on pathology results from recent ERCP. ITEMS TO FOLLOWUP ON ON OUTPATIENT: Abdominal pain - 2/2 biliary obstruction - s/p stenting, now going home with close PCP and GI follow up, with PCP JOSEPHI that she may require prompt oncology re ferral depending on pathology results from recent ERCP. DISCHARGE CONDITION: Stable TIME SPENT ON DISCHARGE: 45 minutes. Vital Signs/I&Os Vital Signs Date Time Temp Pulse Resp B/P (MAP) Pulse Ox O2 Delivery O2 Flow Rate FiO2 10/22/20 08:24 68 10/22/20 06:00 98.0 20 138/56 (83) 95 Room Air 10/21/20 19:10 10.0 I&O- Last 24 Hours up to 6 AM 10/22/20 06:00 Intake Total 1890 ml Output Total 250 ml Balance 1640 ml Laboratory Data Labs 24H Laboratory Tests 2 10/21/20 10:02: Anion Gap 5L, Glomerular Filtration Rate 50.2, Calcium Level 7.7L, Total Bilirubin 0.5, Aspartate Amino Transf (AST/SGOT) 37, Alanine Aminotransferase (ALT/SGPT) 70, Alkaline Phosphatase 179H, Total Protein 6.5, Albumin 3.5, Albumin/Globulin Ratio 1.2 10/21/20 12:46: Bedside Glucose (Misc Panel) 159H 10/21/20 20:07: Bedside Glucose (Misc Panel) 241H 10/21/20 20:14: Anion Gap 6L, Glomerular Filtration Rate 48.7, Calcium Level 9.5#, Total Bilirubin 0.7, Aspartate Amino Transf (AST/SGOT) 38H, Alanine Aminotransferase (ALT/SGPT) 61, Alkaline Phosphatase 180H, Total Protein 6.6, Albumin 3.6, Albumi n/Globulin Ratio 1.2 10/22/20 02:20: Anion Gap 4L, Glomerular Filtration Rate 47.3, Calcium Level 8.6L, Total Bilirubin 0.7, Aspartate Amino Transf (AST/SGOT) 29, Alanine Aminotransferase (ALT/SGPT) 57, Alkaline Phosphatase 166H, Total Protein 6.3L, Albumin 3.4, Albumin/Globulin Ratio 1.2 10/22/20 06:02: Nucleated Red Blood Cells % (auto) 0.0 CBC/BMP Laboratory Tests 10/21/20 10:02 10/21/20 20:14 10/22/20 02:20 10/22/20 06:02 FSBS Laboratory Tests Test 10/21/20 12:46 10/21/20 20:07 Range/Units Bedside Glucose (Misc Panel) 159 241 83-110 MG/DL Microbiology Microbiology 10/19/20 Urine Culture - Final, Complete Escherichia Coli Discharge Medications Scheduled Aspirin (Aspirin EC) 81 Mg Tab, 81 MG PO DAILY, (Reported) Atorvastatin Calcium (Atorvastatin Calcium) 80 Mg Tablet, 80 MG PO QHS, (Reported) Carvedilol (Coreg) 12.5 Mg Tab, 12.5 MG PO BID, (Reported) Cyanocobalamin (Vitamin B-12) (Vitamin B-12) 1,000 Mcg Tab, 1,000 MCG PO DAILY, (Reported) Digoxin (Digoxin) 125 Mcg Tablet, 125 MCG PO DAILY, (Reported) Ergocalciferol (Vitamin D2) (Drisdol) 1,250 Mcg Capsule, 1,250 MCG PO Q2WK, (Reported) 1ST AND 15TH Ferrous Sulfate (Ferrous Sulfate) 325 Mg Tab, 325 MG PO DAILY, (Reported) Gabapentin (Gabapentin) 300 Mg Capsule, 300 MG PO QHS, (Reported) Glipizide (Glipizide) 5 Mg Tab, 5 MG PO BID, (Reported) Insulin Glargine,Hum.rec.anlog (Basaglar Kwikpen U-100) 100 Unit/Ml Inj, 10 UNIT SC QHS, (Reported) Levothyroxine Sodium (Synthroid) 88 Mcg Tablet, 88 MCG PO DAILY, (Reported) Liraglutide (Victoza 2-Shadi) 0.6 Mg/0.1 Ml Pen.injctr, 1.8 MG SC QHS, (Reported) Lisinopril (Lisinopril) 2.5 Mg Tablet, 2.5 MG PO QHS, (Reported) Nitroglycerin (Nitrostat) 0.4 Mg Tab.subl, 0.4 MG SL NITRO for chest pain, (Reported) Omeprazole (Omeprazole) 20 Mg Cap, 20 MG PO DAILY, (Reported) Potassium Chloride (Klor-Con M10) 10 Meq Tabcr, 20 MEQ PO BID, (Reported) Sertraline Hcl (Zoloft) 100 Mg Tablet, 100 MG PO BID, (Reported) Spironolactone (Spironolactone) 25 Mg Tab, 25 MG PO DAILY, (Reported) Sulfamethoxazole/Trimethoprim (Sulfamethoxazole-Tmp Ds Tablet) 1 Each Tablet, 1 TAB PO DAILY, (Reported) Tiotropium [place] (Spiriva) 18 Mcg Cap.w.dev, 1 INHALATION INH DAILY, (Reported) Torsemide (Torsemide) 20 Mg Tab, 20 MG PO DAILY, (Reported) Scheduled PRN Loperamide HCl (Loperamide) 2 Mg Capsule, 2 CAP PO Q6H PRN for AFTER EACH LOOSE STOOL, (Reported) Allergies Coded Allergies: No Known Allergies (Unverified , 12/18/18) SRIDEVI PRATER MD Oct 22, 2020 10:08
[2020-10-22] MEDS ORDERED: LEVO250T12 PO (12:15)
[2020-10-24] MEDS ORDERED: VITAMIN D 50,000 UNITS CAPSULE (ERGOCALCIFEROL 1.25MG) PO SCH (09:00)
== END 2020-10-22 14:05 | disposition home or self-care (01) | DRG 445 ==
LOC: M ED 12:41 → M ED INP 12:42 → ENRESERV 20:15 → M MSPAV 21:27 → OBSVTOIN 10-20 14:06 → EEVIPCON 10-20 14:06
PROVIDERS: ADMIT Internal Medicine; ATTEND Internal Medicine
PROC: 0FB98ZX Excision of Common Bile Duct, Via Natural or Artificial Opening Endoscopic, Diagnostic (ICD-10-PCS; 2020-10-21)
PROC: 0F798DZ Dilation of Common Bile Duct with Intraluminal Device, Via Natural or Artificial Opening Endoscopic (ICD-10-PCS; 2020-10-21)
PROC: 0FC98ZZ Extirpation of Matter from Common Bile Duct, Via Natural or Artificial Opening Endoscopic (ICD-10-PCS; principal; 2020-10-21 09:00)
DX: K83.1 Obstruction of bile duct (principal); N17.9 Acute kidney failure, unspecified; I48.20 Chronic atrial fibrillation, unspecified; N39.0 Urinary tract infection, site not specified; G30.9 Alzheimer's disease, unspecified; F02.80 Dementia in other diseases classified elsewhere, unspecified severity, without behavioral disturbance, psychotic disturbance, mood disturbance, and anxiety; I11.0 Hypertensive heart disease with heart failure; D50.9 Iron deficiency anemia, unspecified; E11.9 Type 2 diabetes mellitus without complications; I25.10 Atherosclerotic heart disease of native coronary artery without angina pectoris; I50.9 Heart failure, unspecified; E53.8 Deficiency of other specified B group vitamins; E03.9 Hypothyroidism, unspecified; R32 Unspecified urinary incontinence; E87.6 Hypokalemia; R00.1 Bradycardia, unspecified; B96.20 Unspecified Escherichia coli [E. coli] as the cause of diseases classified elsewhere; D49.0 Neoplasm of unspecified behavior of digestive system; K21.9 Gastro-esophageal reflux disease without esophagitis; R33.9 Retention of urine, unspecified; F32.9 Major depressive disorder, single episode, unspecified; J43.9 Emphysema, unspecified; K57.30 Diverticulosis of large intestine without perforation or abscess without bleeding; Z95.5 Presence of coronary angioplasty implant and graft; Z90.49 Acquired absence of other specified parts of digestive tract; Z87.891 Personal history of nicotine dependence; Z79.82 Long term (current) use of aspirin; Z79.4 Long term (current) use of insulin; Z79.899 Other long term (current) drug therapy; Z20.822 Contact with and (suspected) exposure to COVID-19

== ENCOUNTER → 2021-05-27 | Outpatient (CLI) | payer OTHER, MEDICAID ==
[~2021-05-27] MED LIST changes: +BACTDSTA PO; -FENO48TA7 PO; +FENO48TA8 PO; +GABA-282 PO; -KLOR10TA76 PO; +LEVO250T12 PO; -LISI2.5T2; -LISI2.5T2 PO; +LISI2.5T9; +LISI2.5T9 PO; +LOPE1CAP5 PO; +NITR4TASL SL; +POTA-136 PO; +ZOLO100T PO
[2021-05-27 13:57] LABS: BASO % 0.3 % (0.0-1.0); EOS # 0.3 10^3/uL (0.0-0.5); EOS % 2.1 % (0.0-3.0); HEMATOCRIT 36.2 % (36.0-47.0); HEMOGLOBIN 11.7 g/dl (12.0-15.5); LYMPH # 2.1 10^3/uL (1.5-5.0); LYMPH % 16.3 % (24.0-44.0); MEAN CORPUSCULAR HEMOGLOBIN 29.4 pg (27.0-33.0); MEAN CORPUSCULAR HGB CONC 32.3 g/dl (32.0-36.5); MONO # 0.9 10^3/uL (0.0-0.8); MONO % 7.3 % (2.0-8.0); NEUTROPHILS # 9.3 10^3/uL (1.5-8.5); NEUTROPHILS % 73.4 % (36.0-66.0); PLATELET COUNT, AUTOMATED 255 10^3/uL (150-450); RED BLOOD COUNT 3.98 10^6/uL (4.00-5.40); WHITE BLOOD COUNT 12.7 10^3/uL (4.0-10.0)
[2021-05-27 14:16] LABS: HEMOGLOBIN A1c 5.8 %
[2021-05-27 14:36] LABS: ALBUMIN 3.5 GM/DL (3.2-5.2); BILIRUBIN,TOTAL 0.7 MG/DL (0.2-1.0); CALCIUM LEVEL 9.9 MG/DL (8.8-10.2); CHOLESTEROL RISK RATIO 2.5 (<5); CREATININE FOR GFR 0.97 MG/DL (0.55-1.30); FREE T4 0.97 NG/DL (0.76-1.46); GLOMERULAR FILTRATION RATE 59.1 (>39); POTASSIUM SERUM 4.6 MEQ/L (3.5-5.1); THYROID STIMULATING HORMONE 8.43 uIU/ML (0.358-3.740); TOTAL PROTEIN 6.9 GM/DL (6.4-8.2)
== END ==
LOC: M LAB 13:00
PROVIDERS: ATTEND Family Medicine
DX: E11.49 Type 2 diabetes mellitus with other diabetic neurological complication (principal)

== ENCOUNTER → 2021-06-21 | Outpatient (CLI) | payer OTHER, MEDICAID ==
[~2021-06-21] MED LIST changes: +AMOX500C PO; +DONE-1 PO; -DONETAB6 PO; -LEVO250T12 PO; +LEVO250T3 PO; +MEMA10TA19 PO
== END ==
LOC: M RAD 15:17
PROVIDERS: ATTEND Internal Medicine Gastroenterology
DX: K83.1 Obstruction of bile duct (principal)

== ENCOUNTER → 2021-08-08 | Outpatient (CLI) | payer OTHER, MEDICAID ==
[~2021-08-08] MED LIST changes: -AMOX500C PO; -MEMA10TA19 PO
== END ==
LOC: M LABSMTC 13:05
PROVIDERS: ATTEND Anesthesiology
DX: Z01.812 Encounter for preprocedural laboratory examination (principal); Z20.822 Contact with and (suspected) exposure to COVID-19

== ENCOUNTER 2021-08-12 12:02 | Day surgery (SDC) | payer OTHER, MEDICAID ==
[~2021-08-12] VITALS: Ht 160 cm; Wt 70.8 kg
[~2021-08-12 12:02] MED LIST changes: +LIDOCAINE 1% MDV 20ML VIAL SQ PRN; +LR 1,000 ML IV ONE; +NS 1,000 ML IV ONE
[2021-08-12] MEDS ORDERED: ISOVUE-300 61% 50ML VIAL As Ordered ONE (13:37)
[2021-08-12] MEDS ORDERED: dexameTHASONE 4 MG/ML 1ML VIAL (J1100 PER 1MG) As Ordered ONE (13:38)
[2021-08-12] MEDS ORDERED: ONDANSETRON 4MG/2ML VIAL As Ordered ONE (13:38)
[2021-08-12] MEDS ORDERED: fentaNYL 100 MCG/2 ML INJECTION (J3010) As Ordered ONE (13:38)
[2021-08-12] MEDS ORDERED: ROCURONIUM BROMIDE 50 MG/5 ML VIAL As Ordered ONE (13:39)
[2021-08-12] MEDS ORDERED: LIDOCAINE 2% 100MG/5ML SDV (FOR ANES.) As Ordered ONE (13:39)
[2021-08-12] MEDS ORDERED: propofoL 200 MG/20 ML VIAL As Ordered ONE (13:39)
[2021-08-12] MEDS ORDERED: MIDAZOLAM INJ 2MG/2ML VIAL (J2250 PER 1MG) As Ordered ONE (13:50)
[2021-08-12] MEDS ORDERED: ETOMIDATE INJ 20MG/10ML VIAL As Ordered ONE (14:07)
[2021-08-12] MEDS ORDERED: SUGAMMADEX SODIUM 500 MG/5 ML VIAL (BRIDION) As Ordered ONE (14:30)
[2021-08-12] MEDS ORDERED: ePHEDrine SULFATE 25 MG/5 ML(5MG/ML) SYRINGE As Ordered ONE (14:30)
[2021-08-12] MEDS ORDERED: PHENYLephrine 500MCG 5ML (100MCG/ML) SYRINGE As Ordered ONE (14:30)
[2021-08-12] MEDS ORDERED: fentaNYL 100 MCG/2 ML INJECTION (J3010) IV PRN (15:35)
[2021-08-12] MEDS ORDERED: ONDANSETRON 4MG/2ML VIAL IV PRN (15:35)
[2021-08-12] MEDS ORDERED: LR 1,000 ML IV SCH (15:35)
[2021-08-12] MEDS: hydrALAZINE 20MG/ML 1ML VIAL (J0360 PER 20MG) IV PRN ×2 (16:02→16:36)
[2021-08-12 16:36] VITALS: BP 181/72
[2021-08-12 17:30] VITALS: BP 170/60
== END 2021-08-12 17:48 | disposition home or self-care (01) ==
LOC: M SDC 12:02
PROVIDERS: ATTEND Internal Medicine Gastroenterology
DX: R93.2 Abnormal findings on diagnostic imaging of liver and biliary tract (principal); R74.8 Abnormal levels of other serum enzymes; K80.50 Calculus of bile duct without cholangitis or cholecystitis without obstruction; T85.590A Other mechanical complication of bile duct prosthesis, initial encounter; Y73.2 Prosthetic and other implants, materials and accessory gastroenterology and urology devices associated with adverse incidents; Z90.49 Acquired absence of other specified parts of digestive tract; K83.8 Other specified diseases of biliary tract; D49.0 Neoplasm of unspecified behavior of digestive system; Z95.5 Presence of coronary angioplasty implant and graft; I48.20 Chronic atrial fibrillation, unspecified; I25.2 Old myocardial infarction; K21.9 Gastro-esophageal reflux disease without esophagitis; I25.10 Atherosclerotic heart disease of native coronary artery without angina pectoris; I11.9 Hypertensive heart disease without heart failure; E03.9 Hypothyroidism, unspecified; E11.9 Type 2 diabetes mellitus without complications; M54.9 Dorsalgia, unspecified; F41.9 Anxiety disorder, unspecified; Z96.82 Presence of neurostimulator; F03.90 Unspecified dementia, unspecified severity, without behavioral disturbance, psychotic disturbance, mood disturbance, and anxiety; Z86.73 Personal history of transient ischemic attack (TIA), and cerebral infarction without residual deficits; F32.9 Major depressive disorder, single episode, unspecified; R06.83 Snoring; G47.30 Sleep apnea, unspecified; J44.9 Chronic obstructive pulmonary disease, unspecified; Z87.891 Personal history of nicotine dependence; Z79.899 Other long term (current) drug therapy; Z79.82 Long term (current) use of aspirin; Z79.4 Long term (current) use of insulin
CPT/HCPCS: 43261; 43264; 43276; 74330; 88104; 88305; C1876; J0360; J2250; J2370; J2405; J3010; Q9967

== ENCOUNTER 2021-09-07 13:41 | Inpatient (IN) | payer OTHER, MEDICAID ==
[~2021-09-07] VITALS: Ht 160 cm; Wt 72.5 kg
[2021-09-07] MEDS: CYANOCOBALAMIN 500 MCG TAB PO SCH (09:00)
[2021-09-07] MEDS: OMEPRAZOLE 20MG CAP PO SCH (09:00)
[2021-09-07] MEDS: MEMANTINE 5MG TABLET (NAMENDA) PO SCH (09:00)
[2021-09-07] MEDS: DIGOXIN 0.125 MG TAB PO SCH (09:00)
[2021-09-07] MEDS: FERROUS SULFATE 325MG TAB PO SCH (09:00)
[2021-09-07] MEDS: ASPIRIN 81MG ENTERIC TABLET PO SCH (09:00)
[~2021-09-07 13:41] MED LIST changes: -LIDOCAINE 1% MDV 20ML VIAL SQ PRN; -LR 1,000 ML IV ONE; -NS 1,000 ML IV ONE
[2021-09-07] MEDS ORDERED: ONDANSETRON 4MG/2ML VIAL IV ONE (14:10)
[2021-09-07] MEDS ORDERED: NS 1,000 ML IV ONE (14:10)
[2021-09-07 14:55] LABS: BASO % 0.2 % (0.0-1.0); EOS # 0.1 10^3/uL (0.0-0.5); EOS % 0.7 % (0.0-3.0); HEMATOCRIT 35.5 % (36.0-47.0); LYMPH # 1.6 10^3/uL (1.5-5.0); LYMPH % 14.9 % (24.0-44.0); MEAN CORPUSCULAR HEMOGLOBIN 28.8 pg (27.0-33.0); MEAN CORPUSCULAR HGB CONC 33.8 g/dl (32.0-36.5); MEAN CORPUSCULAR VOLUME 85.3 fl (80.0-96.0); MONO # 0.5 10^3/uL (0.0-0.8); MONO % 4.9 % (2.0-8.0); NEUTROPHILS # 8.2 10^3/uL (1.5-8.5); NEUTROPHILS % 78.8 % (36.0-66.0); PLATELET COUNT, AUTOMATED 250 10^3/uL (150-450); RED BLOOD COUNT 4.16 10^6/uL (4.00-5.40); WHITE BLOOD COUNT 10.4 10^3/uL (4.0-10.0)
[2021-09-07 15:05] LABS: INR 1.02; PROTHROMBIN TIME 13.8 SECONDS (12.7-14.5)
[2021-09-07 15:06] LABS: PARTIAL THROMBOPLASTIN TIME 25.7 SECONDS (25.9-37.0)
[2021-09-07 15:36] LABS: ALBUMIN 3.7 GM/DL (3.2-5.2); BILIRUBIN,DIRECT 0.2 MG/DL (0.0-0.2); BILIRUBIN,TOTAL 0.7 MG/DL (0.2-1.0); CALCIUM LEVEL 9.3 MG/DL (8.8-10.2); CREATININE FOR GFR 1.04 MG/DL (0.55-1.30); DIGOXIN LEVEL 1.4 NG/ML (0.5-2.0); GLOMERULAR FILTRATION RATE 54.6 (>39); POTASSIUM SERUM 4.2 MEQ/L (3.5-5.1); TOTAL PROTEIN 6.9 GM/DL (6.4-8.2)
[2021-09-07 15:38] LABS: RSV AMPLIFICATION NEGATIVE (NEGATIVE)
[2021-09-07] MEDS ORDERED: ISOVUE-370 76% 100ML VIAL As Ordered ONE (15:56)
[2021-09-07] MEDS ORDERED: AMOX500C PO (17:13)
[2021-09-07] MEDS ORDERED: MEMA10TA19 PO (17:13)
[2021-09-07] MEDS ORDERED: HOME MED LIST COMPLETE! XX SCH (17:15)
[2021-09-07] MEDS ORDERED: NITROGLYCERIN 0.4 MG SUBL TABLET SL SCH (17:45)
[2021-09-07] MEDS ORDERED: GLUCAGON INJ 1MG VIAL SC PRN (17:45)
[2021-09-07] MEDS ORDERED: DEXTROSE 50% 50 ML SYRINGE IV PRN (17:45)
[2021-09-07] MEDS ORDERED: GLUCOSE 4GM CHEW TABLET PO PRN (17:45)
[2021-09-07] MEDS ORDERED: MORPHINE 2 MG/ML 1ML VIAL (J2270) IV PRN (17:45)
[2021-09-07] MEDS ORDERED: ACETAMINOPHEN TAB 650MG DOSE (2X325MG) PO PRN (17:45)
[2021-09-07] MEDS ORDERED: ONDANSETRON 4MG/2ML VIAL IV PRN (18:00)
[2021-09-07] MEDS ORDERED: SERTRALINE 100 MG TAB PO SCH (21:00)
[2021-09-07 21:10] VITALS: BP 180/76
[2021-09-07 21:15] VITALS: BP 160/62
[2021-09-07] MEDS ORDERED: MORPHINE 4 MG/ML 1ML VIAL/SYRINGE (J2270) IV PRN (21:20)
[2021-09-07] MEDS: CARVedilol 12.5 MG TAB PO SCH (22:00)
[2021-09-07] MEDS: POTASSIUM CHLORIDE 10MEQ SR TABLET PO SCH (22:00)
[2021-09-07] MEDS: NS 1,000 ML IV SCH (22:00)
[2021-09-07] MEDS: ATORVASTATIN 20 MG TAB PO SCH (22:29)
[2021-09-07] MEDS: GABAPENTIN 300 MG CAP PO SCH (22:29)
[2021-09-07] MEDS: LISINOPRIL *2.5 MG* TAB PO SCH (22:30)
[2021-09-07] MEDS: HEPARIN SOD (PORCINE) 5000UNITS/ML 1ML VIAL/SYRINGE SC SCH (22:30)
[2021-09-08] VITALS (8 sets, daily range): BP systolic 121–156; BP diastolic 56–72
[2021-09-08] MEDS: NS 1,000 ML IV SCH (02:05)
[2021-09-08 05:42] LABS: BASO % 0.4 % (0.0-1.0); EOS # 0.1 10^3/uL (0.0-0.5); EOS % 1.4 % (0.0-3.0); HEMATOCRIT 31.8 % (36.0-47.0); HEMOGLOBIN 10.5 g/dl (12.0-15.5); MEAN CORPUSCULAR HEMOGLOBIN 29.2 pg (27.0-33.0); MEAN CORPUSCULAR VOLUME 88.6 fl (80.0-96.0); MONO # 0.5 10^3/uL (0.0-0.8); MONO % 5.7 % (2.0-8.0); NEUTROPHILS # 5.8 10^3/uL (1.5-8.5); NEUTROPHILS % 61.2 % (36.0-66.0); PLATELET COUNT, AUTOMATED 203 10^3/uL (150-450); RED BLOOD COUNT 3.59 10^6/uL (4.00-5.40); WHITE BLOOD COUNT 9.5 10^3/uL (4.0-10.0)
[2021-09-08] MEDS: HumaLOG INSULIN (NovoLOG) PER UNIT SC SCH ×4 (06:00→18:25)
[2021-09-08 06:12] LABS: BLOOD UREA NITROGEN 14 MG/DL (7-18); CALCIUM LEVEL 8.4 MG/DL (8.8-10.2); CARBON DIOXIDE LEVEL 30 MEQ/L (21-32); CHLORIDE LEVEL 112 MEQ/L (98-107); CREATININE FOR GFR 0.87 MG/DL (0.55-1.30); GLOMERULAR FILTRATION RATE > 60.0 (>39); GLUCOSE, FASTING 107 MG/DL (70-100); POTASSIUM SERUM 3.5 MEQ/L (3.5-5.1); SODIUM LEVEL 144 MEQ/L (136-145)
[2021-09-08] MEDS: HEPARIN SOD (PORCINE) 5000UNITS/ML 1ML VIAL/SYRINGE SC SCH ×3 (06:35→20:40)
[2021-09-08] MEDS: LEVOTHYROXINE 88MCG TABLET (0.088 MG) PO SCH (06:35)
[2021-09-08] MEDS: FERROUS SULFATE 325MG TAB PO SCH (10:16)
[2021-09-08] MEDS: MEMANTINE 5MG TABLET (NAMENDA) PO SCH (10:17)
[2021-09-08] MEDS: ASPIRIN 81MG ENTERIC TABLET PO SCH (10:18)
[2021-09-08] MEDS: AMOXICILLIN 500 MG CAP PO SCH (10:18)
[2021-09-08] MEDS: OMEPRAZOLE 20MG CAP PO SCH (10:19)
[2021-09-08] MEDS: CYANOCOBALAMIN 500 MCG TAB PO SCH (10:19)
[2021-09-08] MEDS: POTASSIUM CHLORIDE 10MEQ SR TABLET PO SCH ×2 (10:21→20:40)
[2021-09-08] MEDS: CARVedilol 12.5 MG TAB PO SCH (10:26)
[2021-09-08] MEDS: DIGOXIN 0.125 MG TAB PO SCH (10:33)
[2021-09-08 15:55] LABS: CK-MB VALUE MASS 1.4 NG/ML (<3.6)
[2021-09-08] MEDS: LACTOBACILLUS ACIDOPHILUS CAP (BACID) PO SCH ×2 (18:24→20:39)
[2021-09-08] MEDS: GABAPENTIN 300 MG CAP PO SCH (20:39)
[2021-09-08] MEDS: LISINOPRIL *2.5 MG* TAB PO SCH (20:39)
[2021-09-08] MEDS: ATORVASTATIN 20 MG TAB PO SCH (20:40)
[2021-09-08] MEDS: CARVedilol 6.25 MG TAB PO SCH (20:40)
[2021-09-09] MEDS: HumaLOG INSULIN (NovoLOG) PER UNIT SC SCH ×5 (00:35→20:49)
[2021-09-09 04:01] VITALS: BP 150/67
[2021-09-09 05:53] LABS: BASO % 0.3 % (0.0-1.0); EOS # 0.1 10^3/uL (0.0-0.5); EOS % 1.4 % (0.0-3.0); HEMATOCRIT 33.8 % (36.0-47.0); HEMOGLOBIN 11.3 g/dl (12.0-15.5); LYMPH # 2.5 10^3/uL (1.5-5.0); LYMPH % 26.2 % (24.0-44.0); MEAN CORPUSCULAR HEMOGLOBIN 29.5 pg (27.0-33.0); MEAN CORPUSCULAR HGB CONC 33.4 g/dl (32.0-36.5); MEAN CORPUSCULAR VOLUME 88.3 fl (80.0-96.0); MONO # 0.6 10^3/uL (0.0-0.8); MONO % 6.1 % (2.0-8.0); NEUTROPHILS # 6.1 10^3/uL (1.5-8.5); NEUTROPHILS % 65.6 % (36.0-66.0); PLATELET COUNT, AUTOMATED 201 10^3/uL (150-450); RED BLOOD COUNT 3.83 10^6/uL (4.00-5.40); WHITE BLOOD COUNT 9.3 10^3/uL (4.0-10.0)
[2021-09-09 06:28] LABS: BLOOD UREA NITROGEN 7 MG/DL (7-18); CALCIUM LEVEL 9.1 MG/DL (8.8-10.2); CARBON DIOXIDE LEVEL 31 MEQ/L (21-32); CHLORIDE LEVEL 111 MEQ/L (98-107); CREATININE FOR GFR 0.73 MG/DL (0.55-1.30); GLOMERULAR FILTRATION RATE > 60.0 (>39); GLUCOSE, FASTING 135 MG/DL (70-100); MAGNESIUM LEVEL 2.2 MG/DL (1.8-2.4); POTASSIUM SERUM 4.5 MEQ/L (3.5-5.1); SODIUM LEVEL 144 MEQ/L (136-145)
[2021-09-09] MEDS: HEPARIN SOD (PORCINE) 5000UNITS/ML 1ML VIAL/SYRINGE SC SCH ×3 (06:33→20:58)
[2021-09-09] MEDS: LEVOTHYROXINE 88MCG TABLET (0.088 MG) PO SCH (06:33)
[2021-09-09 08:05] VITALS: BP 164/62
[2021-09-09] MEDS: DIGOXIN 0.125 MG TAB PO SCH (09:00)
[2021-09-09 10:02] VITALS: BP 131/61
[2021-09-09] MEDS: CARVedilol 6.25 MG TAB PO SCH ×2 (10:06→20:59)
[2021-09-09] MEDS: AMOXICILLIN 500 MG CAP PO SCH (10:09)
[2021-09-09] MEDS: LACTOBACILLUS ACIDOPHILUS CAP (BACID) PO SCH ×4 (10:09→20:58)
[2021-09-09] MEDS: OMEPRAZOLE 20MG CAP PO SCH (10:10)
[2021-09-09] MEDS: CYANOCOBALAMIN 500 MCG TAB PO SCH (10:10)
[2021-09-09] MEDS: MEMANTINE 5MG TABLET (NAMENDA) PO SCH (10:10)
[2021-09-09] MEDS: ASPIRIN 81MG ENTERIC TABLET PO SCH (10:10)
[2021-09-09] MEDS: FERROUS SULFATE 325MG TAB PO SCH (10:10)
[2021-09-09] MEDS: POTASSIUM CHLORIDE 10MEQ SR TABLET PO SCH ×2 (10:11→20:58)
[2021-09-09 11:45] VITALS: BP 158/62
[2021-09-09 16:20] VITALS: BP 148/65
[2021-09-09 20:00] VITALS: BP 164/77
[2021-09-09] MEDS: LISINOPRIL *2.5 MG* TAB PO SCH (20:58)
[2021-09-09] MEDS: GABAPENTIN 300 MG CAP PO SCH (20:58)
[2021-09-09] MEDS: ATORVASTATIN 20 MG TAB PO SCH (21:00)
[2021-09-10] VITALS: BP 156/71
[2021-09-10 04:00] VITALS: BP 146/65
[2021-09-10 05:58] LABS: BASO % 0.3 % (0.0-1.0); EOS # 0.2 10^3/uL (0.0-0.5); EOS % 1.8 % (0.0-3.0); HEMOGLOBIN 11.3 g/dl (12.0-15.5); LYMPH # 2.4 10^3/uL (1.5-5.0); LYMPH % 27.7 % (24.0-44.0); MEAN CORPUSCULAR HGB CONC 33.2 g/dl (32.0-36.5); MEAN CORPUSCULAR VOLUME 87.4 fl (80.0-96.0); MONO # 0.6 10^3/uL (0.0-0.8); MONO % 7.3 % (2.0-8.0); NEUTROPHILS # 5.4 10^3/uL (1.5-8.5); NEUTROPHILS % 62.6 % (36.0-66.0); PLATELET COUNT, AUTOMATED 218 10^3/uL (150-450); RED BLOOD COUNT 3.89 10^6/uL (4.00-5.40); WHITE BLOOD COUNT 8.7 10^3/uL (4.0-10.0)
[2021-09-10] MEDS: HEPARIN SOD (PORCINE) 5000UNITS/ML 1ML VIAL/SYRINGE SC SCH ×3 (06:01→20:47)
[2021-09-10] MEDS: LEVOTHYROXINE 88MCG TABLET (0.088 MG) PO SCH (06:01)
[2021-09-10 06:30] LABS: BLOOD UREA NITROGEN 9 MG/DL (7-18); CALCIUM LEVEL 9.5 MG/DL (8.8-10.2); CARBON DIOXIDE LEVEL 32 MEQ/L (21-32); CHLORIDE LEVEL 110 MEQ/L (98-107); CREATININE FOR GFR 0.83 MG/DL (0.55-1.30); GLOMERULAR FILTRATION RATE > 60.0 (>39); GLUCOSE, FASTING 197 MG/DL (70-100); MAGNESIUM LEVEL 2.3 MG/DL (1.8-2.4); POTASSIUM SERUM 4.9 MEQ/L (3.5-5.1); SODIUM LEVEL 141 MEQ/L (136-145)
[2021-09-10 08:00] VITALS: BP 150/78
[2021-09-10] MEDS: CARVedilol 6.25 MG TAB PO SCH ×2 (08:39→20:47)
[2021-09-10] MEDS: OMEPRAZOLE 20MG CAP PO SCH (08:40)
[2021-09-10] MEDS: AMOXICILLIN 500 MG CAP PO SCH (08:40)
[2021-09-10] MEDS: LACTOBACILLUS ACIDOPHILUS CAP (BACID) PO SCH ×4 (08:40→20:47)
[2021-09-10] MEDS: FERROUS SULFATE 325MG TAB PO SCH (08:41)
[2021-09-10] MEDS: CYANOCOBALAMIN 500 MCG TAB PO SCH (08:41)
[2021-09-10] MEDS: ASPIRIN 81MG ENTERIC TABLET PO SCH (08:41)
[2021-09-10] MEDS: MEMANTINE 5MG TABLET (NAMENDA) PO SCH (08:41)
[2021-09-10] MEDS: POTASSIUM CHLORIDE 10MEQ SR TABLET PO SCH ×2 (08:41→20:47)
[2021-09-10] MEDS: HumaLOG INSULIN (NovoLOG) PER UNIT SC SCH ×4 (08:42→20:04)
[2021-09-10] MEDS: DIGOXIN 0.125 MG TAB PO SCH (09:00)
[2021-09-10 12:00] VITALS: BP 131/60
[2021-09-10] MEDS: LISINOPRIL *2.5 MG* TAB PO SCH ×2 (12:09→20:46)
[2021-09-10 16:00] VITALS: BP 137/61
[2021-09-10 20:00] VITALS: BP 134/61
[2021-09-10] MEDS: GABAPENTIN 300 MG CAP PO SCH (20:46)
[2021-09-10] MEDS: ATORVASTATIN 20 MG TAB PO SCH (20:47)
[2021-09-11 04:00] VITALS: BP 161/70
[2021-09-11] MEDS: HEPARIN SOD (PORCINE) 5000UNITS/ML 1ML VIAL/SYRINGE SC SCH (05:48)
[2021-09-11] MEDS: LEVOTHYROXINE 88MCG TABLET (0.088 MG) PO SCH (05:48)
[2021-09-11 06:07] LABS: BASO % 0.4 % (0.0-1.0); EOS # 0.2 10^3/uL (0.0-0.5); EOS % 1.9 % (0.0-3.0); HEMATOCRIT 33.7 % (36.0-47.0); HEMOGLOBIN 10.9 g/dl (12.0-15.5); LYMPH # 2.3 10^3/uL (1.5-5.0); LYMPH % 28.4 % (24.0-44.0); MEAN CORPUSCULAR HGB CONC 32.3 g/dl (32.0-36.5); MEAN CORPUSCULAR VOLUME 89.6 fl (80.0-96.0); MONO # 0.6 10^3/uL (0.0-0.8); MONO % 7.1 % (2.0-8.0); NEUTROPHILS % 61.8 % (36.0-66.0); PLATELET COUNT, AUTOMATED 223 10^3/uL (150-450); RED BLOOD COUNT 3.76 10^6/uL (4.00-5.40); WHITE BLOOD COUNT 8.1 10^3/uL (4.0-10.0)
[2021-09-11 06:28] LABS: BLOOD UREA NITROGEN 13 MG/DL (7-18); CALCIUM LEVEL 9.3 MG/DL (8.8-10.2); CARBON DIOXIDE LEVEL 32 MEQ/L (21-32); CHLORIDE LEVEL 108 MEQ/L (98-107); CREATININE FOR GFR 0.89 MG/DL (0.55-1.30); GLOMERULAR FILTRATION RATE > 60.0 (>39); GLUCOSE, FASTING 171 MG/DL (70-100); MAGNESIUM LEVEL 2.2 MG/DL (1.8-2.4); POTASSIUM SERUM 4.8 MEQ/L (3.5-5.1); SODIUM LEVEL 143 MEQ/L (136-145)
[2021-09-11] MEDS: LACTOBACILLUS ACIDOPHILUS CAP (BACID) PO SCH ×2 (07:46→12:00)
[2021-09-11] MEDS: CYANOCOBALAMIN 500 MCG TAB PO SCH (07:46)
[2021-09-11] MEDS: OMEPRAZOLE 20MG CAP PO SCH (07:46)
[2021-09-11 07:47] VITALS: BP 158/72
[2021-09-11] MEDS: MEMANTINE 5MG TABLET (NAMENDA) PO SCH (07:47)
[2021-09-11] MEDS: FERROUS SULFATE 325MG TAB PO SCH (07:47)
[2021-09-11] MEDS: AMOXICILLIN 500 MG CAP PO SCH (07:47)
[2021-09-11] MEDS: LISINOPRIL *2.5 MG* TAB PO SCH (07:47)
[2021-09-11] MEDS: ASPIRIN 81MG ENTERIC TABLET PO SCH (07:47)
[2021-09-11] MEDS: CARVedilol 6.25 MG TAB PO SCH (07:50)
[2021-09-11] MEDS: DIGOXIN 0.125 MG TAB PO SCH (07:50)
[2021-09-11] MEDS: HumaLOG INSULIN (NovoLOG) PER UNIT SC SCH ×2 (07:51→12:00)
[2021-09-11] MEDS: POTASSIUM CHLORIDE 10MEQ SR TABLET PO SCH (07:54)
[2021-09-11 08:00] VITALS: BP 158/72
[2021-09-11] MEDS ORDERED: LISI5TAB11 PO (09:31)
[2021-09-11] MEDS ORDERED: DIGO0.123 PO (09:31)
== END 2021-09-11 13:26 | disposition home health service (06) | DRG 439 ==
LOC: M ED 13:41 → M ED INP 17:45 → ENRESERV 19:14 → M PCU 21:04
PROVIDERS: ADMIT Internal Medicine; ATTEND Internal Medicine
DX: K85.90 Acute pancreatitis without necrosis or infection, unspecified (principal); I50.32 Chronic diastolic (congestive) heart failure; I48.20 Chronic atrial fibrillation, unspecified; G30.9 Alzheimer's disease, unspecified; F02.80 Dementia in other diseases classified elsewhere, unspecified severity, without behavioral disturbance, psychotic disturbance, mood disturbance, and anxiety; I25.10 Atherosclerotic heart disease of native coronary artery without angina pectoris; Z95.5 Presence of coronary angioplasty implant and graft; I11.0 Hypertensive heart disease with heart failure; E11.42 Type 2 diabetes mellitus with diabetic polyneuropathy; E78.5 Hyperlipidemia, unspecified; J43.9 Emphysema, unspecified; F32.A Depression, unspecified; R32 Unspecified urinary incontinence; D50.9 Iron deficiency anemia, unspecified; K21.9 Gastro-esophageal reflux disease without esophagitis; Z96.641 Presence of right artificial hip joint; Z87.891 Personal history of nicotine dependence; E03.9 Hypothyroidism, unspecified; E87.6 Hypokalemia; Z20.822 Contact with and (suspected) exposure to COVID-19; Z79.2 Long term (current) use of antibiotics; Z79.82 Long term (current) use of aspirin; Z79.899 Other long term (current) drug therapy

== ENCOUNTER 2021-09-20 15:32 | Emergency (ER) | payer OTHER, MEDICAID ==
[~2021-09-20] VITALS: Ht 160 cm; Wt 72.2 kg
[~2021-09-20 15:32] MED LIST changes: +AMOX500C PO; +LISI5TAB11 PO; +MEMA10TA19 PO
[2021-09-20] MEDS ORDERED: ONDANSETRON 4MG/2ML VIAL IV ONE (16:05)
[2021-09-20] MEDS ORDERED: NS 1,000 ML IV SCH (16:05)
[2021-09-20 16:36] LABS: BASO % 0.3 % (0.0-1.0); HEMATOCRIT 31.2 % (36.0-47.0); HEMOGLOBIN 10.6 g/dl (12.0-15.5); LYMPH # 0.9 10^3/uL (1.5-5.0); LYMPH % 7.9 % (24.0-44.0); MEAN CORPUSCULAR HEMOGLOBIN 29.4 pg (27.0-33.0); MEAN CORPUSCULAR VOLUME 86.7 fl (80.0-96.0); MONO # 0.9 10^3/uL (0.0-0.8); MONO % 7.4 % (2.0-8.0); PLATELET COUNT, AUTOMATED 224 10^3/uL (150-450); WHITE BLOOD COUNT 11.9 10^3/uL (4.0-10.0)
[2021-09-20 17:00] LABS: ALBUMIN 3.2 GM/DL (3.2-5.2); ALT/SGPT 27 U/L (12-78); BILIRUBIN,DIRECT 0.3 MG/DL (0.0-0.2); BILIRUBIN,TOTAL 1.1 MG/DL (0.2-1.0); BLOOD UREA NITROGEN 10 MG/DL (7-18); CALCIUM LEVEL 8.5 MG/DL (8.8-10.2); CARBON DIOXIDE LEVEL 28 MEQ/L (21-32); CHLORIDE LEVEL 108 MEQ/L (98-107); CREATININE FOR GFR 0.79 MG/DL (0.55-1.30); GLOMERULAR FILTRATION RATE > 60.0 (>39); GLUCOSE, FASTING 152 MG/DL (70-100); LIPASE 184 U/L (73-393); POTASSIUM SERUM 3.2 MEQ/L (3.5-5.1); SODIUM LEVEL 142 MEQ/L (136-145); TOTAL PROTEIN 6.2 GM/DL (6.4-8.2)
[2021-09-20] MEDS ORDERED: POTASSIUM CHLORIDE 10MEQ SR TABLET PO ONE (17:15)
[2021-09-20] MEDS ORDERED: ISOVUE-370 76% 100ML VIAL As Ordered ONE (17:28)
[2021-09-20] MEDS ORDERED: ONDA4TAB6 PO (18:31)
[2021-09-20 18:32] VITALS: BP 148/60
== END 2021-09-20 18:57 | disposition home or self-care (01) ==
LOC: M ED 15:32
DX: R11.10 Vomiting, unspecified (principal); E11.9 Type 2 diabetes mellitus without complications; I50.9 Heart failure, unspecified; I11.0 Hypertensive heart disease with heart failure; J43.9 Emphysema, unspecified; G30.9 Alzheimer's disease, unspecified; D64.9 Anemia, unspecified; E07.9 Disorder of thyroid, unspecified; E78.5 Hyperlipidemia, unspecified; F33.9 Major depressive disorder, recurrent, unspecified; K21.9 Gastro-esophageal reflux disease without esophagitis; R32 Unspecified urinary incontinence; Z79.899 Other long term (current) drug therapy; Z79.82 Long term (current) use of aspirin; Z79.890 Hormone replacement therapy; Z87.891 Personal history of nicotine dependence
CPT/HCPCS: 74177; 80048; 80076; 83690; 85025; 93041; 96361; 96374; 99285; J2405; Q9967

== ENCOUNTER → 2021-10-01 | Outpatient (CLI) | payer OTHER, MEDICAID ==
[~2021-10-01] MED LIST changes: +OMEP-173 PO; +ONDA4TAB6 PO; +POTA10CA32 PO
== END ==
LOC: M LABSMTC 09:53
PROVIDERS: ATTEND Anesthesiology
DX: Z01.812 Encounter for preprocedural laboratory examination (principal); Z20.822 Contact with and (suspected) exposure to COVID-19

== ENCOUNTER → 2021-10-02 | Outpatient (CLI) | payer OTHER, MEDICAID ==
[2021-10-02 15:29] LABS: BLOOD UREA NITROGEN 14 MG/DL (7-18); CARBON DIOXIDE LEVEL 27 MEQ/L (21-32); CHLORIDE LEVEL 105 MEQ/L (98-107); CREATININE FOR GFR 0.83 MG/DL (0.55-1.30); GLOMERULAR FILTRATION RATE > 60.0 (>39); GLUCOSE, FASTING 142 MG/DL (70-100); POTASSIUM SERUM 4.2 MEQ/L (3.5-5.1); SODIUM LEVEL 137 MEQ/L (136-145)
[2021-10-02 15:30] LABS: ALBUMIN 3.7 GM/DL (3.2-5.2); ALT/SGPT 42 U/L (12-78); BILIRUBIN,TOTAL 0.6 MG/DL (0.2-1.0); CALCIUM LEVEL 8.9 MG/DL (8.8-10.2)
== END ==
LOC: M LAB 14:57
PROVIDERS: ATTEND Family Medicine
DX: I10 Essential (primary) hypertension (principal)

== ENCOUNTER 2021-10-03 09:20 | Day surgery (SDC) | payer OTHER, MEDICAID ==
[~2021-10-03] VITALS: Ht 160 cm; Wt 67.6 kg
[~2021-10-03 09:20] MED LIST changes: +NS 1,000 ML IV ONE
[2021-10-03] MEDS ORDERED: LIDOCAINE 2% 100MG/5ML SDV (FOR ANES.) As Ordered ONE (10:15)
[2021-10-03] MEDS ORDERED: propofoL 200 MG/20 ML VIAL As Ordered ONE ×2 (10:15→11:23)
[2021-10-03] MEDS ORDERED: fentaNYL 100 MCG/2 ML INJECTION As Ordered ONE (10:15)
[2021-10-03 11:25] VITALS: BP 181/77
== END 2021-10-03 11:35 | disposition home or self-care (01) ==
LOC: M OPP 09:20
PROVIDERS: ATTEND Internal Medicine Gastroenterology
DX: K31.89 Other diseases of stomach and duodenum (principal); Z46.59 Encounter for fitting and adjustment of other gastrointestinal appliance and device; T18.2XXA Foreign body in stomach, initial encounter; R11.2 Nausea with vomiting, unspecified; Z79.82 Long term (current) use of aspirin; Z79.84 Long term (current) use of oral hypoglycemic drugs; Z79.899 Other long term (current) drug therapy; Z95.5 Presence of coronary angioplasty implant and graft; Z86.73 Personal history of transient ischemic attack (TIA), and cerebral infarction without residual deficits; Z86.74 Personal history of sudden cardiac arrest
CPT/HCPCS: 43247; J3010

== ENCOUNTER 2022-05-09 15:55 | Emergency (ER) | payer OTHER, MEDICAID ==
[~2022-05-09] VITALS: Ht 160 cm; Wt 68.4 kg
[~2022-05-09 15:55] MED LIST changes: +LEVO1TAB38 PO; -LEVO250T3 PO; -NS 1,000 ML IV ONE
[2022-05-09] MEDS ORDERED: SERTRALINE (16:07)
[2022-05-09] MEDS ORDERED: TORS20TA2 (16:07)
[2022-05-09] MEDS ORDERED: POTA-151 (16:07)
[2022-05-09] MEDS ORDERED: AMOX500C (16:07)
[2022-05-09] MEDS ORDERED: CARV12.5 (16:07)
[2022-05-09] MEDS ORDERED: LIDOCAINE 5% (LIDODERM) PATCH TD ONE (17:05)
[2022-05-09] MEDS ORDERED: traMADol 50 MG TAB PO ONE (17:05)
[2022-05-09 17:43] LABS: BASO % 0.5 % (0.0-1.0); EOS # 0.2 10^3/uL (0.0-0.5); EOS % 2.8 % (0.0-3.0); HEMATOCRIT 36.1 % (36.0-47.0); HEMOGLOBIN 11.6 g/dl (12.0-15.5); LYMPH # 2.2 10^3/uL (1.5-5.0); LYMPH % 26.9 % (24.0-44.0); MEAN CORPUSCULAR HEMOGLOBIN 29.1 pg (27.0-33.0); MEAN CORPUSCULAR HGB CONC 32.1 g/dl (32.0-36.5); MEAN CORPUSCULAR VOLUME 90.7 fl (80.0-96.0); MONO # 0.5 10^3/uL (0.0-0.8); MONO % 6.6 % (2.0-8.0); NEUTROPHILS # 5.2 10^3/uL (1.5-8.5); NEUTROPHILS % 62.8 % (36.0-66.0); PLATELET COUNT, AUTOMATED 248 10^3/uL (150-450); RED BLOOD COUNT 3.98 10^6/uL (4.00-5.40); WHITE BLOOD COUNT 8.2 10^3/uL (4.0-10.0)
[2022-05-09] MEDS ORDERED: TRAM50TA2 PO (19:52)
[2022-05-09] MEDS ORDERED: ASPE4PAD TOP (19:52)
[2022-05-09] MEDS ORDERED: MACR100C43 PO (19:53)
[2022-05-09 20:05] VITALS: BP 139/84
== END 2022-05-09 20:14 | disposition home or self-care (01) ==
LOC: M ED 15:55
DX: M54.6 Pain in thoracic spine (principal); R35.89 Other polyuria; I48.91 Unspecified atrial fibrillation; I11.0 Hypertensive heart disease with heart failure; I50.9 Heart failure, unspecified; I25.2 Old myocardial infarction; J44.9 Chronic obstructive pulmonary disease, unspecified; Z86.73 Personal history of transient ischemic attack (TIA), and cerebral infarction without residual deficits; K21.9 Gastro-esophageal reflux disease without esophagitis; Z87.442 Personal history of urinary calculi; Z95.5 Presence of coronary angioplasty implant and graft; Z90.49 Acquired absence of other specified parts of digestive tract; Z90.710 Acquired absence of both cervix and uterus; Z79.82 Long term (current) use of aspirin; Z79.4 Long term (current) use of insulin; Z79.890 Hormone replacement therapy; Z79.899 Other long term (current) drug therapy

== ENCOUNTER 2022-08-12 12:05 | Emergency (ER) | payer OTHER, MEDICAID ==
[~2022-08-12] VITALS: Ht 157.5 cm; Wt 68.0 kg
[~2022-08-12 12:05] MED LIST changes: +AMOX500C; +ASPE4PAD TOP; +CARV12.5; +POTA-151; -POTA10CA32 PO; +POTA10CA33 PO; +SERTRALINE; +TORS20TA2; +TRAM50TA2 PO
[2022-08-12] MEDS ORDERED: SERTRALINE (12:41)
[2022-08-12 13:12] LABS: BASO % 0.5 % (0.0-1.0); EOS # 0.1 10^3/uL (0.0-0.5); EOS % 0.9 % (0.0-3.0); HEMATOCRIT 41.1 % (36.0-47.0); HEMOGLOBIN 13.3 g/dl (12.0-15.5); LYMPH # 1.5 10^3/uL (1.5-5.0); LYMPH % 17.3 % (24.0-44.0); MEAN CORPUSCULAR HEMOGLOBIN 30.1 pg (27.0-33.0); MEAN CORPUSCULAR HGB CONC 32.4 g/dl (32.0-36.5); MONO # 0.5 10^3/uL (0.0-0.8); MONO % 6.3 % (2.0-8.0); NEUTROPHILS # 6.3 10^3/uL (1.5-8.5); NEUTROPHILS % 74.8 % (36.0-66.0); PLATELET COUNT, AUTOMATED 224 10^3/uL (150-450); RED BLOOD COUNT 4.42 10^6/uL (4.00-5.40); WHITE BLOOD COUNT 8.5 10^3/uL (4.0-10.0)
[2022-08-12 13:31] LABS: LIPASE 36 U/L (12-53)
[2022-08-12 13:33] LABS: ALKALINE PHOSPHATASE 136 U/L (46-116); ALT/SGPT 73 U/L (7.0-40); AST/SGOT 56 U/L (<34); BILIRUBIN,DIRECT 0.2 MG/DL (<0.4); BILIRUBIN,TOTAL 0.7 MG/DL (0.3-1.2); BLOOD UREA NITROGEN 19 MG/DL (9-23); CALCIUM LEVEL 9.1 MG/DL (8.3-10.6); CARBON DIOXIDE LEVEL 30 MMOL/L (20-31); CHLORIDE LEVEL 103 MMOL/L (98-107); CREATININE FOR GFR 0.93 MG/DL (0.55-1.30); GLOMERULAR FILTRATION RATE > 60.0 (>39); GLUCOSE, FASTING 124 MG/DL (74-106); POTASSIUM SERUM 3.8 MMOL/L (3.5-5.1); SODIUM LEVEL 141 MMOL/L (136-145); TOTAL PROTEIN 7.6 G/DL (5.7-8.2)
[2022-08-12] MEDS ORDERED: NS 1,000 ML IV ONE (17:05)
[2022-08-12] MEDS ORDERED: PIPERACILLIN/TAZOBACTAM SOD 3.375 GM in D5W MINI-BAG PLUS 50 ML IV ONE (17:05)
[2022-08-12] MEDS ORDERED: ISOVUE-370 76% 100ML VIAL As Ordered ONE (17:19)
[2022-08-12 17:45] LABS: INR 1.03; PROTHROMBIN TIME 13.7 SECONDS (12.5-14.5)
[2022-08-12 18:08] LABS: RSV AMPLIFICATION NEGATIVE (NEGATIVE)
[2022-08-12] MEDS ORDERED: MACR100C43 PO (18:17)
[2022-08-12 19:28] VITALS: BP 171/79
== END 2022-08-12 19:30 | disposition home or self-care (01) ==
LOC: M ED 12:05
DX: N39.0 Urinary tract infection, site not specified (principal); K57.90 Diverticulosis of intestine, part unspecified, without perforation or abscess without bleeding; I50.9 Heart failure, unspecified; I25.2 Old myocardial infarction; E11.9 Type 2 diabetes mellitus without complications; I10 Essential (primary) hypertension; K21.9 Gastro-esophageal reflux disease without esophagitis; J44.9 Chronic obstructive pulmonary disease, unspecified; E78.5 Hyperlipidemia, unspecified
CPT/HCPCS: 36415; 74177; 80048; 80076; 81000; 81015; 83605; 83690; 85025; 85610; 87040; 87088; 87186; 87631; 96361; 96365; 96366; 99284; J2543; Q9967

== ENCOUNTER → 2022-08-31 | Outpatient (CLI) | payer OTHER, MEDICAID ==
[2022-08-31 12:15] LABS: BASO % 0.4 % (0.0-1.0); EOS # 0.1 10^3/uL (0.0-0.5); EOS % 1.8 % (0.0-3.0); HEMATOCRIT 36.6 % (36.0-47.0); HEMOGLOBIN 11.9 g/dl (12.0-15.5); LYMPH # 1.4 10^3/uL (1.5-5.0); LYMPH % 18.2 % (24.0-44.0); MEAN CORPUSCULAR HEMOGLOBIN 30.3 pg (27.0-33.0); MEAN CORPUSCULAR HGB CONC 32.5 g/dl (32.0-36.5); MEAN CORPUSCULAR VOLUME 93.1 fl (80.0-96.0); MONO # 0.6 10^3/uL (0.0-0.8); MONO % 7.6 % (2.0-8.0); NEUTROPHILS # 5.6 10^3/uL (1.5-8.5); NEUTROPHILS % 71.6 % (36.0-66.0); PLATELET COUNT, AUTOMATED 201 10^3/uL (150-450); RED BLOOD COUNT 3.93 10^6/uL (4.00-5.40); WHITE BLOOD COUNT 7.9 10^3/uL (4.0-10.0)
[2022-08-31 12:45] LABS: CREATININE, URINE 58.2 MG/DL; MALB URINE SIEMENS < 3.0 MG/DL; MAU/CREAT RATIO 5.1 MCG/MG (0.0-30.0)
[2022-08-31 12:52] LABS: ALBUMIN 3.5 G/DL (3.2-5.2); BILIRUBIN,TOTAL 0.7 MG/DL (0.3-1.2); CALCIUM LEVEL 9.1 MG/DL (8.3-10.6); CHOLESTEROL RISK RATIO 1.94 (<5); CREATININE FOR GFR 0.98 MG/DL (0.55-1.30); FREE T4 0.85 NG/DL (0.89-1.76); GLOMERULAR FILTRATION RATE 58.3 (>39); HDL CHOLESTEROL 46.8 MG/DL (>40); LDL CHOLESTEROL 25.4 MG/DL (<100); POTASSIUM SERUM 3.9 MMOL/L (3.5-5.1); THYROID STIMULATING HORMONE 11.163 uIU/ML (0.55-4.78); TOTAL PROTEIN 6.4 G/DL (5.7-8.2)
[2022-08-31 13:14] LABS: HEMOGLOBIN A1c 5.9 % (4.0-6.0)
== END ==
LOC: M LAB 11:09
PROVIDERS: ATTEND Family Medicine
DX: E11.49 Type 2 diabetes mellitus with other diabetic neurological complication (principal); E03.9 Hypothyroidism, unspecified; I10 Essential (primary) hypertension; E78.5 Hyperlipidemia, unspecified

== ENCOUNTER 2022-09-30 22:55 | Inpatient (IN) | payer OTHER, MEDICAID ==
[~2022-09-30] VITALS: Ht 160 cm; Wt 78.1 kg
[2022-09-30 23:58] LABS: BASO % 0.4 % (0.0-1.0); EOS # 0.1 10^3/uL (0.0-0.5); EOS % 0.9 % (0.0-3.0); HEMATOCRIT 36.4 % (36.0-47.0); HEMOGLOBIN 12.2 g/dl (12.0-15.5); LYMPH # 2.3 10^3/uL (1.5-5.0); LYMPH % 23.3 % (24.0-44.0); MEAN CORPUSCULAR HEMOGLOBIN 30.5 pg (27.0-33.0); MEAN CORPUSCULAR HGB CONC 33.5 g/dl (32.0-36.5); MONO # 0.7 10^3/uL (0.0-0.8); NEUTROPHILS # 6.7 10^3/uL (1.5-8.5); NEUTROPHILS % 68.1 % (36.0-66.0); PLATELET COUNT, AUTOMATED 186 10^3/uL (150-450); WHITE BLOOD COUNT 9.8 10^3/uL (4.0-10.0)
[2022-10-01 00:18] LABS: CK-MB VALUE MASS < 1.0 NG/ML (<3.6)
[2022-10-01 00:20] LABS: ALBUMIN 3.7 G/DL (3.2-5.2); ALKALINE PHOSPHATASE 95 U/L (46-116); ALT/SGPT 26 U/L (7.0-40); AST/SGOT 24 U/L (<34); BILIRUBIN,DIRECT 0.4 MG/DL (<0.4); BILIRUBIN,TOTAL 0.8 MG/DL (0.3-1.2); BLOOD UREA NITROGEN 23 MG/DL (9-23); CALCIUM LEVEL 8.7 MG/DL (8.3-10.6); CARBON DIOXIDE LEVEL 28 MMOL/L (20-31); CHLORIDE LEVEL 105 MMOL/L (98-107); CPK CREATINE PHOSPHOKINASE 61 U/L (34-145); CREATININE FOR GFR 0.88 MG/DL (0.55-1.30); GLOMERULAR FILTRATION RATE > 60.0 (>39); GLUCOSE, FASTING 119 MG/DL (74-106); MB/CK RELATIVE INDEX 1.63 (< OR =4); POTASSIUM SERUM 3.4 MMOL/L (3.5-5.1); SODIUM LEVEL 141 MMOL/L (136-145); TOTAL PROTEIN 6.5 G/DL (5.7-8.2)
[2022-10-01 00:22] LABS: THYROID STIMULATING HORMONE 6.449 uIU/ML (0.55-4.78)
[2022-10-01 01:44] LABS: RSV AMPLIFICATION NEGATIVE (NEGATIVE)
[2022-10-01] MEDS ORDERED: ISOVUE-370 76% 100ML VIAL As Ordered ONE (01:52)
[2022-10-01] MEDS ORDERED: CLOPIDOGREL 300 MG TAB (PLAVIX) PO STA (03:36)
[2022-10-01] MEDS ORDERED: ACETAMINOPHEN TAB 650MG DOSE (2X325MG) PO PRN (04:30)
[2022-10-01] MEDS ORDERED: TORS20TA2 PO (04:53)
[2022-10-01] MEDS ORDERED: MEMA10TA19 PO (04:53)
[2022-10-01] MEDS ORDERED: ZOLO100T PO (04:53)
[2022-10-01] MEDS ORDERED: CARV12.5 PO (04:53)
[2022-10-01] MEDS ORDERED: AMOX500C PO (04:53)
[2022-10-01] MEDS ORDERED: LISI5TAB11 PO (04:53)
[2022-10-01] MEDS ORDERED: VICT18IN SC (04:53)
[2022-10-01] MEDS ORDERED: POTA1TAB14 PO (04:53)
[2022-10-01] MEDS ORDERED: GLUCAGON INJ 1MG VIAL SC PRN (04:55)
[2022-10-01] MEDS ORDERED: GLUCOSE 4GM CHEW TABLET PO PRN (04:55)
[2022-10-01] MEDS ORDERED: HOME MED LIST COMPLETE! XX SCH (04:55)
[2022-10-01] MEDS ORDERED: DEXTROSE 50% 50ML SYRINGE IV PRN (04:55)
[2022-10-01] MEDS: LEVOTHYROXINE 88MCG TABLET (0.088 MG) PO SCH (06:30)
[2022-10-01 06:50] LABS: BASO % 0.5 % (0.0-1.0); EOS # 0.1 10^3/uL (0.0-0.5); EOS % 1.7 % (0.0-3.0); HEMATOCRIT 35.8 % (36.0-47.0); HEMOGLOBIN 11.8 g/dl (12.0-15.5); LYMPH # 2.4 10^3/uL (1.5-5.0); MEAN CORPUSCULAR HEMOGLOBIN 30.1 pg (27.0-33.0); MEAN CORPUSCULAR VOLUME 91.3 fl (80.0-96.0); MONO # 0.5 10^3/uL (0.0-0.8); MONO % 7.1 % (2.0-8.0); NEUTROPHILS # 4.3 10^3/uL (1.5-8.5); NEUTROPHILS % 58.4 % (36.0-66.0); PLATELET COUNT, AUTOMATED 179 10^3/uL (150-450); RED BLOOD COUNT 3.92 10^6/uL (4.00-5.40); WHITE BLOOD COUNT 7.4 10^3/uL (4.0-10.0)
[2022-10-01 07:09] LABS: HEMOGLOBIN A1c 5.6 % (4.0-6.0)
[2022-10-01] MEDS: INSULIN LISPRO (NovoLOG) PER UNIT SC SCH ×3 (07:13→18:51)
[2022-10-01 07:18] LABS: CK-MB VALUE MASS < 1.0 NG/ML (<3.6)
[2022-10-01 07:23] LABS: CPK CREATINE PHOSPHOKINASE 55 U/L (34-145); MB/CK RELATIVE INDEX 1.81 (< OR =4)
[2022-10-01 07:24] LABS: BLOOD UREA NITROGEN 18 MG/DL (9-23); CALCIUM LEVEL 6.4 MG/DL (8.3-10.6); CARBON DIOXIDE LEVEL 20 MMOL/L (20-31); CHLORIDE LEVEL 104 MMOL/L (98-107); CHOLESTEROL LEVEL 78 MG/DL (<200); CHOLESTEROL RISK RATIO 2.46 (<5); CREATININE FOR GFR 0.65 MG/DL (0.55-1.30); GLOMERULAR FILTRATION RATE > 60.0 (>39); GLUCOSE, FASTING 77 MG/DL (74-106); HDL CHOLESTEROL 31.6 MG/DL (>40); LDL CHOLESTEROL 28.4 MG/DL (<100); NON-HDL-C 46.4 MG/DL; SODIUM LEVEL 132 MMOL/L (136-145); TRIGLYCERIDES LEVEL 90 MG/DL (<150)
[2022-10-01 07:25] LABS: FREE T4 0.82 NG/DL (0.89-1.76)
[2022-10-01] MEDS: CARVedilol 12.5 MG TAB PO SCH (08:05)
[2022-10-01] MEDS: FERROUS SULFATE 325MG TAB PO SCH (08:05)
[2022-10-01] MEDS: SERTRALINE 100 MG TAB PO SCH ×2 (08:05→21:02)
[2022-10-01] MEDS: ASPIRIN 81MG CHEW TABLET PO SCH (08:05)
[2022-10-01] MEDS: POTASSIUM CHLORIDE 10MEQ SR TABLET PO SCH (08:06)
[2022-10-01] MEDS: AMOXICILLIN 500 MG CAP PO SCH (08:06)
[2022-10-01] MEDS: TORSEMIDE 20 MG TAB PO SCH (08:06)
[2022-10-01] MEDS: CYANOCOBALAMIN 500 MCG TAB PO SCH (08:07)
[2022-10-01] MEDS: LIDOCAINE 5% (LIDODERM) PATCH TD SCH (08:20)
[2022-10-01] MEDS ORDERED: HEPARIN SOD (PORCINE) 5000UNITS/ML 1ML VIAL/SYRINGE SQ SCH (09:00)
[2022-10-01] MEDS: MEMANTINE 5MG TABLET (NAMENDA) PO SCH (09:24)
[2022-10-01 10:51] LABS: BLOOD UREA NITROGEN 18 MG/DL (9-23); CALCIUM LEVEL 8.6 MG/DL (8.3-10.6); CARBON DIOXIDE LEVEL 29 MMOL/L (20-31); CHLORIDE LEVEL 104 MMOL/L (98-107); CREATININE FOR GFR 0.86 MG/DL (0.55-1.30); GLOMERULAR FILTRATION RATE > 60.0 (>39); GLUCOSE, FASTING 164 MG/DL (74-106); POTASSIUM SERUM 3.1 MMOL/L (3.5-5.1); SODIUM LEVEL 141 MMOL/L (136-145)
[2022-10-01] MEDS: APIXABAN 5 MG TAB (ELIQUIS) PO SCH ×2 (11:22→21:02)
[2022-10-01] MEDS ORDERED: POTASSIUM CHLORIDE 10MEQ SR TABLET PO ONE (11:25)
[2022-10-01 11:59] LABS: INR 1.06
[2022-10-01 20:32] VITALS: BP 143/70
[2022-10-01] MEDS ORDERED: INSULIN LISPRO (NovoLOG) PER UNIT SC SCH (21:00)
[2022-10-01] MEDS ORDERED: ATORVASTATIN 20 MG TAB PO SCH (21:00)
[2022-10-01] MEDS ORDERED: lisinopriL 5 MG TAB PO SCH (21:00)
[2022-10-01] MEDS ORDERED: GABAPENTIN 300 MG CAP PO SCH (21:00)
[2022-10-01 23:55] VITALS: BP 140/58
[2022-10-02 03:46] VITALS: BP_SYST 134; BP_SYST 138; BP_DIAS 60
[2022-10-02] MEDS: LEVOTHYROXINE 88MCG TABLET (0.088 MG) PO SCH (05:17)
[2022-10-02 05:50] LABS: BASO % 0.6 % (0.0-1.0); EOS # 0.1 10^3/uL (0.0-0.5); EOS % 1.7 % (0.0-3.0); HEMATOCRIT 36.9 % (36.0-47.0); HEMOGLOBIN 12.1 g/dl (12.0-15.5); LYMPH # 2.1 10^3/uL (1.5-5.0); LYMPH % 31.2 % (24.0-44.0); MEAN CORPUSCULAR HEMOGLOBIN 30.1 pg (27.0-33.0); MEAN CORPUSCULAR HGB CONC 32.8 g/dl (32.0-36.5); MEAN CORPUSCULAR VOLUME 91.8 fl (80.0-96.0); MONO # 0.4 10^3/uL (0.0-0.8); MONO % 6.1 % (2.0-8.0); NEUTROPHILS % 60.1 % (36.0-66.0); PLATELET COUNT, AUTOMATED 181 10^3/uL (150-450); RED BLOOD COUNT 4.02 10^6/uL (4.00-5.40); WHITE BLOOD COUNT 6.6 10^3/uL (4.0-10.0)
[2022-10-02] MEDS ORDERED: CLOPIDOGREL 75 MG TAB PO SCH (06:00)
[2022-10-02 06:18] LABS: BLOOD UREA NITROGEN 21 MG/DL (9-23); CALCIUM LEVEL 8.9 MG/DL (8.3-10.6); CARBON DIOXIDE LEVEL 29 MMOL/L (20-31); CHLORIDE LEVEL 109 MMOL/L (98-107); CREATININE FOR GFR 0.82 MG/DL (0.55-1.30); GLOMERULAR FILTRATION RATE > 60.0 (>39); GLUCOSE, FASTING 107 MG/DL (74-106); MAGNESIUM LEVEL 2.1 MG/DL (1.8-2.4); POTASSIUM SERUM 3.8 MMOL/L (3.5-5.1); SODIUM LEVEL 144 MMOL/L (136-145)
[2022-10-02] MEDS: INSULIN LISPRO (NovoLOG) PER UNIT SC SCH ×2 (07:30→12:00)
[2022-10-02 07:35] VITALS: BP 174/69
[2022-10-02] MEDS: FERROUS SULFATE 325MG TAB PO SCH (08:07)
[2022-10-02] MEDS: APIXABAN 5 MG TAB (ELIQUIS) PO SCH (08:07)
[2022-10-02] MEDS: SERTRALINE 100 MG TAB PO SCH (08:07)
[2022-10-02] MEDS: CYANOCOBALAMIN 500 MCG TAB PO SCH (08:07)
[2022-10-02] MEDS: ASPIRIN 81MG CHEW TABLET PO SCH (08:07)
[2022-10-02] MEDS: POTASSIUM CHLORIDE 10MEQ SR TABLET PO SCH (08:08)
[2022-10-02] MEDS: TORSEMIDE 20 MG TAB PO SCH (08:08)
[2022-10-02] MEDS: LIDOCAINE 5% (LIDODERM) PATCH TD SCH (08:09)
[2022-10-02 09:54] VITALS: BP 174/69
[2022-10-02] MEDS: CARVedilol 12.5 MG TAB PO SCH (09:54)
[2022-10-02] MEDS: AMOXICILLIN 500 MG CAP PO SCH (09:54)
[2022-10-02] MEDS ORDERED: ELIQ5TAB PO (11:52)
[2022-10-02 12:14] VITALS: BP 147/74
[2022-10-02] MEDS: MEMANTINE 5MG TABLET (NAMENDA) PO SCH (12:29)
== END 2022-10-02 14:01 | disposition home health service (06) | DRG 69 ==
LOC: M ED 22:55 → M ED INP 10-01 04:26 → ENRESERV 10-01 18:50 → M PCU 10-01 20:28
PROVIDERS: ADMIT Internal Medicine; ATTEND Internal Medicine
PROC: B246ZZZ Ultrasonography of Right and Left Heart (ICD-10-PCS; principal; 2022-10-01)
DX: G45.9 Transient cerebral ischemic attack, unspecified (principal); I50.32 Chronic diastolic (congestive) heart failure; E87.3 Alkalosis; G30.9 Alzheimer's disease, unspecified; F02.80 Dementia in other diseases classified elsewhere, unspecified severity, without behavioral disturbance, psychotic disturbance, mood disturbance, and anxiety; I48.91 Unspecified atrial fibrillation; I25.10 Atherosclerotic heart disease of native coronary artery without angina pectoris; I11.0 Hypertensive heart disease with heart failure; R29.810 Facial weakness; R47.1 Dysarthria and anarthria; E11.22 Type 2 diabetes mellitus with diabetic chronic kidney disease; E78.5 Hyperlipidemia, unspecified; E03.9 Hypothyroidism, unspecified; F32.A Depression, unspecified; K21.9 Gastro-esophageal reflux disease without esophagitis; J43.9 Emphysema, unspecified; R32 Unspecified urinary incontinence; E87.6 Hypokalemia; D50.9 Iron deficiency anemia, unspecified; M54.9 Dorsalgia, unspecified; Z90.49 Acquired absence of other specified parts of digestive tract; Z95.5 Presence of coronary angioplasty implant and graft; Z87.891 Personal history of nicotine dependence; Z20.822 Contact with and (suspected) exposure to COVID-19; Z79.82 Long term (current) use of aspirin; Z79.890 Hormone replacement therapy; Z79.4 Long term (current) use of insulin; Z79.899 Other long term (current) drug therapy

== ENCOUNTER 2023-02-26 21:04 | Emergency (ER) | payer OTHER, MEDICAID, MEDICARE ==
[~2023-02-26] VITALS: Ht 160 cm; Wt 68.1 kg
[~2023-02-26 21:04] MED LIST changes: +ELIQ5TAB PO; +POTA-298 PO; -POTA10CA33 PO; +POTA10CA60 PO
[2023-02-26] MEDS ORDERED: ISOVUE-370 76% 100ML VIAL As Ordered ONE (22:02)
[2023-02-26 22:41] LABS: BASO % 0.4 % (0.0-1.0); EOS # 0.2 10^3/uL (0.0-0.5); EOS % 2.1 % (0.0-3.0); HEMATOCRIT 33.1 % (36.0-47.0); HEMOGLOBIN 10.7 g/dl (12.0-15.5); LYMPH # 2.7 10^3/uL (1.5-5.0); LYMPH % 32.4 % (24.0-44.0); MEAN CORPUSCULAR HEMOGLOBIN 30.2 pg (27.0-33.0); MEAN CORPUSCULAR HGB CONC 32.3 g/dl (32.0-36.5); MEAN CORPUSCULAR VOLUME 93.5 fl (80.0-96.0); MONO # 0.6 10^3/uL (0.0-0.8); MONO % 7.7 % (2.0-8.0); NEUTROPHILS # 4.7 10^3/uL (1.5-8.5); NEUTROPHILS % 56.8 % (36.0-66.0); PLATELET COUNT, AUTOMATED 197 10^3/uL (150-450); RED BLOOD COUNT 3.54 10^6/uL (4.00-5.40); WHITE BLOOD COUNT 8.2 10^3/uL (4.0-10.0)
[2023-02-26 23:06] LABS: LIPASE 47 U/L (12-53)
[2023-02-26 23:08] LABS: CPK CREATINE PHOSPHOKINASE 60 U/L (34-145)
[2023-02-26 23:09] LABS: ALBUMIN 3.7 G/DL (3.2-5.2); ALKALINE PHOSPHATASE 134 U/L (46-116); ALT/SGPT 38 U/L (7.0-40); AST/SGOT 21 U/L (<34); BILIRUBIN,DIRECT 0.3 MG/DL (<0.4); BILIRUBIN,TOTAL 0.6 MG/DL (0.3-1.2); CK-MB VALUE MASS < 1.0 NG/ML (<3.6); MB/CK RELATIVE INDEX 1.66 (< OR =4); TOTAL PROTEIN 6.9 G/DL (5.7-8.2)
[2023-02-26 23:11] LABS: THYROID STIMULATING HORMONE 6.929 uIU/ML (0.55-4.78)
[2023-02-26] MEDS ORDERED: KETOROLAC 30 MG/ML 1ML VIAL IV ONE (23:15)
[2023-02-26] MEDS ORDERED: cefTRIAXone SOD 1 GM in D5W MINI-BAG PLUS 50 ML IV ONE (23:15)
[2023-02-26 23:50] LABS: CK-MB VALUE MASS 1.4 NG/ML (<3.6)
[2023-02-26 23:52] LABS: MB/CK RELATIVE INDEX 2.33 (< OR =4)
[2023-02-26] MEDS ORDERED: CEFD300C41 PO (23:54)
[2023-02-27 00:24] VITALS: BP 104/55; TEMP 98.6; O2SAT 100
== END 2023-02-27 00:35 | disposition home or self-care (01) ==
LOC: M ED 21:04
DX: R07.9 Chest pain, unspecified (principal); N39.0 Urinary tract infection, site not specified; I11.9 Hypertensive heart disease without heart failure; I48.91 Unspecified atrial fibrillation; I50.20 Unspecified systolic (congestive) heart failure; I25.2 Old myocardial infarction; Z86.73 Personal history of transient ischemic attack (TIA), and cerebral infarction without residual deficits; E78.5 Hyperlipidemia, unspecified; J44.9 Chronic obstructive pulmonary disease, unspecified; Z79.01 Long term (current) use of anticoagulants; Z87.442 Personal history of urinary calculi; E56.9 Vitamin deficiency, unspecified; F41.9 Anxiety disorder, unspecified; F32.A Depression, unspecified; Z79.82 Long term (current) use of aspirin; Z79.4 Long term (current) use of insulin; Z79.899 Other long term (current) drug therapy; Z95.5 Presence of coronary angioplasty implant and graft
CPT/HCPCS: 70498; 71045; 71275; 80047; 80076; 81001; 82550; 82553; 83690; 83880; 84439; 84443; 85025; 85730; 87088; 87186; 93005; 93041; 94760; 96365; 96375; 99285; J0696; J1885; Q9967

== ENCOUNTER 2023-05-23 13:59 | Inpatient (IN) | payer MEDICARE, MEDICAID ==
[~2023-05-23] VITALS: Ht 154.9 cm; Wt 59.9 kg
[~2023-05-23 13:59] MED LIST changes: +CEFD300C42 PO; +GLIP5TAB17 PO; -GLIP5TAB8 PO; -OXYB5TAB10 PO; +OXYB5TAB11 PO
[2023-05-23] MEDS ORDERED: NS 500 ML IV ONE (14:15)
[2023-05-23] MEDS ORDERED: IPRATROPIUM 0.5MG/ALBUTEROL 2.5MG INH SOL UD 3ML (DUONEB) NEB ONE (14:25)
[2023-05-23] MEDS ORDERED: methylPREDNISolone 125MG 2ML VIAL IV ONE (14:25)
[2023-05-23] MEDS ORDERED: ACETAMINOPHEN 325 MG TAB PO ONE (15:05)
[2023-05-23 15:07] LABS: BASO % 0.3 % (0.0-1.0); HEMOGLOBIN 11.6 g/dl (12.0-15.5); LYMPH # 0.4 10^3/uL (1.5-5.0); LYMPH % 3.9 % (24.0-44.0); MEAN CORPUSCULAR HEMOGLOBIN 28.3 pg (27.0-33.0); MEAN CORPUSCULAR HGB CONC 31.4 g/dl (32.0-36.5); MEAN CORPUSCULAR VOLUME 90.2 fl (80.0-96.0); MONO # 0.4 10^3/uL (0.0-0.8); MONO % 3.6 % (2.0-8.0); NEUTROPHILS # 10.4 10^3/uL (1.5-8.5); NEUTROPHILS % 91.6 % (36.0-66.0); PLATELET COUNT, AUTOMATED 202 10^3/uL (150-450); WHITE BLOOD COUNT 11.3 10^3/uL (4.0-10.0)
[2023-05-23] MEDS ORDERED: NS 1,680 ML in IV 1 EA IV ONE (15:10)
[2023-05-23] MEDS ORDERED: PIPERACILLIN/TAZOBACTAM SOD 4.5 GM in D5W MINI-BAG PLUS 50 ML IV ONE (15:10)
[2023-05-23 15:16] LABS: INR 1.71; PROTHROMBIN TIME 19.5 SECONDS (12.5-14.5)
[2023-05-23 15:17] LABS: PARTIAL THROMBOPLASTIN TIME 25.6 SECONDS (24.8-34.2)
[2023-05-23 15:18] LABS: ABG BASE EXCESS 2.1 (-2.0-2.0); ABG HCO3 25.6 MMOL/L (22.0-26.0); ABG O2 SATURATION 94.2 % (95.0-99.0); ABG PARTIAL PRESSURE O2 69.1 mmHg (75.0-100.0); ABG STANDARD HCO3 26.3 MMOL/L. (22.0-26.0); ABG TOTAL CO2 26.7 MMOL/L (23.0-31.0)
[2023-05-23] MEDS ORDERED: ISOVUE-370 76% 100ML VIAL As Ordered ONE (15:19)
[2023-05-23 15:34] LABS: LIPASE 23 U/L (12-53)
[2023-05-23 15:35] LABS: ETHYL ALCOHOL (ETHANOL) < 0.003 % (0.000-0.010); LDH LACTATE DEHYDROGENASE 274 U/L (120-246)
[2023-05-23 15:36] LABS: AMYLASE 50 U/L (30-118); CPK CREATINE PHOSPHOKINASE 79 U/L (34-145)
[2023-05-23 15:37] LABS: ALBUMIN 4.1 G/DL (3.2-5.2); ALKALINE PHOSPHATASE 141 U/L (46-116); ALT/SGPT 55 U/L (7.0-40); AST/SGOT 52 U/L (<34); BILIRUBIN,TOTAL 2.1 MG/DL (0.3-1.2); BLOOD UREA NITROGEN 13 MG/DL (9-23); CARBON DIOXIDE LEVEL 28 MMOL/L (20-31); CHLORIDE LEVEL 101 MMOL/L (98-107); CK-MB VALUE MASS < 1.0 NG/ML (<3.6); CREATININE FOR GFR 0.93 MG/DL (0.55-1.30); GLOMERULAR FILTRATION RATE > 60.0 (>32); GLUCOSE, FASTING 249 MG/DL (74-106); MB/CK RELATIVE INDEX 1.26 (< OR =4); POTASSIUM SERUM 3.6 MMOL/L (3.5-5.1); SALICYLATE LEVEL < 3.0 MG/DL (<30); SODIUM LEVEL 139 MMOL/L (136-145); TOTAL PROTEIN 7.2 G/DL (5.7-8.2)
[2023-05-23 15:39] LABS: FERRITIN 118.5 NG/ML (7.3-270.7)
[2023-05-23 15:48] LABS: PROCALCITONIN <0.04 ng/ml
[2023-05-23 16:45] LABS: CK-MB VALUE MASS < 1.0 NG/ML (<3.6)
[2023-05-23] MEDS ORDERED: GLUCAGON INJ 1MG VIAL SC PRN (16:45)
[2023-05-23] MEDS ORDERED: DEXTROSE 50% 50ML SYRINGE IV PRN (16:45)
[2023-05-23] MEDS ORDERED: GLUCOSE 4GM CHEW TABLET PO PRN (16:45)
[2023-05-23 16:46] LABS: CPK CREATINE PHOSPHOKINASE 70 U/L (34-145); MB/CK RELATIVE INDEX 1.42 (< OR =4)
[2023-05-23] MEDS ORDERED: ACETAMINOPHEN TAB 650MG DOSE (2X325MG) PO PRN (17:05)
[2023-05-23] MEDS ORDERED: IBUPROFEN 400MG TAB PO ONE (17:15)
[2023-05-23] MEDS ORDERED: ELIQ5TAB PO (17:28)
[2023-05-23] MEDS ORDERED: HOME MED LIST COMPLETE! XX SCH (17:30)
[2023-05-23] MEDS: INSULIN LISPRO (NovoLOG) PER UNIT SC SCH ×2 (18:33→20:27)
[2023-05-23 19:29] LABS: C REACTIVE PROTEIN QUANTITATIV 2.5 MG/DL (<1.0)
[2023-05-23 19:42] LABS: PROCALCITONIN 1.24 ng/ml
[2023-05-23] MEDS: APIXABAN 5 MG TAB (ELIQUIS) PO SCH (20:15)
[2023-05-23] MEDS: ASPIRIN 81MG ENTERIC TABLET PO SCH (20:15)
[2023-05-23] MEDS: PANTOPRAZOLE 40MG TAB (PROTONIX) PO SCH (20:15)
[2023-05-23] MEDS: DOXYCYCLINE HYCLATE 100 MG in D5W MINI-BAG PLUS 100 ML IV SCH (20:16)
[2023-05-23 21:15] VITALS: BP 164/76; TEMP 98.4; O2SAT 98
[2023-05-23] MEDS: cefTRIAXone SOD 1 GM in D5W MINI-BAG PLUS 50 ML IV SCH (21:34)
[2023-05-24] VITALS (17 sets, daily range): BP systolic 132–182; BP diastolic 63–100; TEMP 97.3–98.5; O2SAT 96–100
[2023-05-24] MEDS ORDERED: amLODIPine 5 MG TAB PO ONE (04:15)
[2023-05-24 05:43] LABS: HEMATOCRIT 34.2 % (36.0-47.0); MEAN CORPUSCULAR HEMOGLOBIN 29.1 pg (27.0-33.0); MEAN CORPUSCULAR HGB CONC 32.2 g/dl (32.0-36.5); MEAN CORPUSCULAR VOLUME 90.5 fl (80.0-96.0); PLATELET COUNT, AUTOMATED 164 10^3/uL (150-450); RED BLOOD COUNT 3.78 10^6/uL (4.00-5.40); WHITE BLOOD COUNT 7.9 10^3/uL (4.0-10.0)
[2023-05-24] MEDS: LEVOTHYROXINE 88MCG TABLET (0.088 MG) PO SCH (05:59)
[2023-05-24 06:07] LABS: ALBUMIN 3.4 G/DL (3.2-5.2); ALKALINE PHOSPHATASE 133 U/L (46-116); ALT/SGPT 78 U/L (7.0-40); AST/SGOT 69 U/L (<34); BILIRUBIN,DIRECT 0.6 MG/DL (<0.4); BLOOD UREA NITROGEN 14 MG/DL (9-23); CARBON DIOXIDE LEVEL 27 MMOL/L (20-31); CHLORIDE LEVEL 107 MMOL/L (98-107); CREATININE FOR GFR 0.85 MG/DL (0.55-1.30); GLOMERULAR FILTRATION RATE > 60.0 (>32); GLUCOSE, FASTING 217 MG/DL (74-106); POTASSIUM SERUM 3.3 MMOL/L (3.5-5.1); SODIUM LEVEL 146 MMOL/L (136-145); TOTAL PROTEIN 6.4 G/DL (5.7-8.2)
[2023-05-24] MEDS: INSULIN LISPRO (NovoLOG) PER UNIT SC SCH ×4 (07:30→20:24)
[2023-05-24] MEDS ORDERED: TORSEMIDE 20 MG TAB PO SCH (09:00)
[2023-05-24] MEDS ORDERED: POTASSIUM CHLORIDE 10MEQ SR TABLET PO SCH (09:00)
[2023-05-24] MEDS: DOXYCYCLINE HYCLATE 100 MG in D5W MINI-BAG PLUS 100 ML IV SCH ×2 (09:04→20:28)
[2023-05-24] MEDS: FERROUS SULFATE 325MG TAB PO SCH (09:05)
[2023-05-24] MEDS: PANTOPRAZOLE 40MG TAB (PROTONIX) PO SCH (09:05)
[2023-05-24] MEDS: SERTRALINE 100 MG TAB PO SCH ×2 (09:05→20:28)
[2023-05-24] MEDS: ASPIRIN 81MG ENTERIC TABLET PO SCH (09:05)
[2023-05-24] MEDS: MEMANTINE 5MG TABLET (NAMENDA) PO SCH (09:05)
[2023-05-24] MEDS: APIXABAN 5 MG TAB (ELIQUIS) PO SCH ×2 (09:06→20:28)
[2023-05-24] MEDS: CARVedilol 12.5 MG TAB PO SCH ×2 (09:06→20:28)
[2023-05-24] MEDS: KCL 40MEQ IN D5/0.45NS 1000ML 1,000 ML IV SCH (10:10)
[2023-05-24] MEDS: LEVALBUTEROL HFA 45MCG/ACT 15GM INHALER INH PRN ×3 (13:23→21:48)
[2023-05-24] MEDS ORDERED: IPRATROPIUM 0.02% SOLN 0.5MG 2.5ML NEB INH PRN (18:15)
[2023-05-24 18:47] LABS: CALCIUM LEVEL 8.7 MG/DL (8.3-10.6); CREATININE FOR GFR 0.96 MG/DL (0.55-1.30); GLOMERULAR FILTRATION RATE 59.5 (>32); POTASSIUM SERUM 3.6 MMOL/L (3.5-5.1)
[2023-05-24] MEDS: ATORVASTATIN 20 MG TAB PO SCH (20:27)
[2023-05-24] MEDS: lisinopriL 5 MG TAB PO SCH (20:28)
[2023-05-24] MEDS: GABAPENTIN 300 MG CAP PO SCH (20:28)
[2023-05-24] MEDS ORDERED: METOPROLOL 5 MG/5 ML VIAL IV STA ×2 (20:51→21:17)
[2023-05-24] MEDS ORDERED: IPRATROPIUM HFA INHALER 12.9 GRAMS (ATROVENT HFA) INH PRN (20:55)
[2023-05-25] VITALS (30 sets, daily range): BP systolic 127–164; BP diastolic 63–105; TEMP 98.2–100; O2SAT 93–100
[2023-05-25] MEDS: KCL 40MEQ IN D5/0.45NS 1000ML 1,000 ML IV SCH (01:44)
[2023-05-25] MEDS: cefTRIAXone SOD 1 GM in D5W MINI-BAG PLUS 50 ML IV SCH ×2 (01:48→23:19)
[2023-05-25] MEDS ORDERED: DIGOXIN INJ 0.5 MG/2 ML AMP IV STA ×2 (02:19→07:46)
[2023-05-25 05:13] LABS: BASO % 0.3 % (0.0-1.0); HEMATOCRIT 29.8 % (36.0-47.0); HEMOGLOBIN 9.7 g/dl (12.0-15.5); LYMPH % 11.1 % (24.0-44.0); MEAN CORPUSCULAR HEMOGLOBIN 29.1 pg (27.0-33.0); MEAN CORPUSCULAR HGB CONC 32.6 g/dl (32.0-36.5); MEAN CORPUSCULAR VOLUME 89.5 fl (80.0-96.0); MONO # 0.7 10^3/uL (0.0-0.8); MONO % 8.5 % (2.0-8.0); NEUTROPHILS # 6.9 10^3/uL (1.5-8.5); NEUTROPHILS % 79.8 % (36.0-66.0); PLATELET COUNT, AUTOMATED 152 10^3/uL (150-450); RED BLOOD COUNT 3.33 10^6/uL (4.00-5.40); WHITE BLOOD COUNT 8.6 10^3/uL (4.0-10.0)
[2023-05-25 05:38] LABS: BLOOD UREA NITROGEN 18 MG/DL (9-23); CALCIUM LEVEL 8.1 MG/DL (8.3-10.6); CARBON DIOXIDE LEVEL 27 MMOL/L (20-31); CHLORIDE LEVEL 105 MMOL/L (98-107); CREATININE FOR GFR 0.85 MG/DL (0.55-1.30); GLOMERULAR FILTRATION RATE > 60.0 (>32); GLUCOSE, FASTING 219 MG/DL (74-106); POTASSIUM SERUM 3.3 MMOL/L (3.5-5.1); SODIUM LEVEL 140 MMOL/L (136-145)
[2023-05-25] MEDS: LEVOTHYROXINE 88MCG TABLET (0.088 MG) PO SCH (06:03)
[2023-05-25] MEDS ORDERED: POTASSIUM CHLORIDE 10% LIQ 20MEQ/15ML UDC PO ONE ×3 (07:15→14:00)
[2023-05-25] MEDS: INSULIN LISPRO (NovoLOG) PER UNIT SC SCH ×4 (08:25→21:00)
[2023-05-25] MEDS ORDERED: FUROSEMIDE 40MG/4ML VIAL IV ONE (08:30)
[2023-05-25] MEDS: FERROUS SULFATE 325MG TAB PO SCH (08:31)
[2023-05-25] MEDS: APIXABAN 5 MG TAB (ELIQUIS) PO SCH ×2 (08:31→22:11)
[2023-05-25] MEDS: ASPIRIN 81MG ENTERIC TABLET PO SCH (08:31)
[2023-05-25] MEDS: SERTRALINE 100 MG TAB PO SCH ×2 (08:31→22:11)
[2023-05-25] MEDS: PANTOPRAZOLE 40MG TAB (PROTONIX) PO SCH (08:31)
[2023-05-25] MEDS: MEMANTINE 5MG TABLET (NAMENDA) PO SCH (08:32)
[2023-05-25] MEDS: CARVedilol 12.5 MG TAB PO SCH ×2 (08:34→22:11)
[2023-05-25] MEDS: DOXYCYCLINE HYCLATE 100 MG in D5W MINI-BAG PLUS 100 ML IV SCH (08:41)
[2023-05-25] MEDS: POTASSIUM CHLORIDE 10% LIQ 20MEQ/15ML UDC PO SCH (08:42)
[2023-05-25 13:50] LABS: BLOOD UREA NITROGEN 17 MG/DL (9-23); CALCIUM LEVEL 8.4 MG/DL (8.3-10.6); CARBON DIOXIDE LEVEL 27 MMOL/L (20-31); CHLORIDE LEVEL 106 MMOL/L (98-107); GLOMERULAR FILTRATION RATE > 60.0 (>32); GLUCOSE, FASTING 191 MG/DL (74-106); POTASSIUM SERUM 3.7 MMOL/L (3.5-5.1); SODIUM LEVEL 141 MMOL/L (136-145)
[2023-05-25] MEDS ORDERED: REMDESIVIR 100 MG in NS 250 ML IV SCH (13:55)
[2023-05-25] MEDS ORDERED: REMDESIVIR 200 MG in NS 250 ML IV ONE (18:00)
[2023-05-25] MEDS: ATORVASTATIN 20 MG TAB PO SCH (22:11)
[2023-05-25] MEDS: DOXYCYCLINE HYCLATE 100MG TABLET PO SCH (22:11)
[2023-05-25] MEDS: GABAPENTIN 300 MG CAP PO SCH (22:11)
[2023-05-25] MEDS: lisinopriL 5 MG TAB PO SCH (22:12)
[2023-05-25] MEDS ORDERED: BENZONATATE 100MG CAPSULE PO ONE (22:35)
[2023-05-26] VITALS (9 sets, daily range): BP systolic 149–169; BP diastolic 68–89; TEMP 97–98.6; O2SAT 96–99
[2023-05-26] MEDS: LEVALBUTEROL 1.25MG 0.5ML CONCENTRATE NEB INH SCH ×3 (00:31→09:42)
[2023-05-26 05:48] LABS: BASO % 0.5 % (0.0-1.0); EOS % 0.5 % (0.0-3.0); HEMATOCRIT 30.7 % (36.0-47.0); HEMOGLOBIN 9.9 g/dl (12.0-15.5); LYMPH # 1.1 10^3/uL (1.5-5.0); LYMPH % 17.8 % (24.0-44.0); MEAN CORPUSCULAR HEMOGLOBIN 29.1 pg (27.0-33.0); MEAN CORPUSCULAR HGB CONC 32.2 g/dl (32.0-36.5); MEAN CORPUSCULAR VOLUME 90.3 fl (80.0-96.0); MONO # 0.5 10^3/uL (0.0-0.8); MONO % 8.2 % (2.0-8.0); NEUTROPHILS # 4.5 10^3/uL (1.5-8.5); NEUTROPHILS % 72.7 % (36.0-66.0); PLATELET COUNT, AUTOMATED 144 10^3/uL (150-450); WHITE BLOOD COUNT 6.2 10^3/uL (4.0-10.0)
[2023-05-26 05:55] LABS: BLOOD UREA NITROGEN 16 MG/DL (9-23); CALCIUM LEVEL 8.2 MG/DL (8.3-10.6); CARBON DIOXIDE LEVEL 30 MMOL/L (20-31); CHLORIDE LEVEL 108 MMOL/L (98-107); CREATININE FOR GFR 0.77 MG/DL (0.55-1.30); GLOMERULAR FILTRATION RATE > 60.0 (>32); GLUCOSE, FASTING 142 MG/DL (74-106); POTASSIUM SERUM 3.2 MMOL/L (3.5-5.1); SODIUM LEVEL 144 MMOL/L (136-145)
[2023-05-26] MEDS: LEVOTHYROXINE 88MCG TABLET (0.088 MG) PO SCH (06:15)
[2023-05-26] MEDS ORDERED: POTASSIUM CHLORIDE 10MEQ SR TABLET PO ONE (09:00)
[2023-05-26] MEDS: INSULIN LISPRO (NovoLOG) PER UNIT SC SCH ×2 (09:09→13:18)
[2023-05-26] MEDS: CARVedilol 12.5 MG TAB PO SCH (09:12)
[2023-05-26] MEDS: FERROUS SULFATE 325MG TAB PO SCH (09:13)
[2023-05-26] MEDS: ASPIRIN 81MG ENTERIC TABLET PO SCH (09:13)
[2023-05-26] MEDS: APIXABAN 5 MG TAB (ELIQUIS) PO SCH (09:13)
[2023-05-26] MEDS: MEMANTINE 5MG TABLET (NAMENDA) PO SCH (09:15)
[2023-05-26] MEDS: POTASSIUM CHLORIDE 10% LIQ 20MEQ/15ML UDC PO SCH (09:15)
[2023-05-26] MEDS: PANTOPRAZOLE 40MG TAB (PROTONIX) PO SCH (09:15)
[2023-05-26] MEDS: DOXYCYCLINE HYCLATE 100MG TABLET PO SCH (09:16)
[2023-05-26] MEDS: SERTRALINE 100 MG TAB PO SCH (09:16)
[2023-05-26] MEDS ORDERED: CEFD300C42 PO (09:40)
[2023-05-26] MEDS ORDERED: K-TA1TAB PO (09:40)
[2023-05-26] MEDS ORDERED: ANOR1AER PO (09:40)
[2023-05-26] MEDS ORDERED: MUCI600T31 PO (09:40)
[2023-05-26] MEDS ORDERED: DOXY-444 PO (09:40)
[2023-05-26] MEDS ORDERED: POTASSIUM CHLORIDE 10% LIQ 20MEQ/15ML UDC PO ONE (10:00)
[2023-05-26] MEDS ORDERED: methylPREDNISolone 125MG 2ML VIAL IV ONE (10:00)
[2023-05-26] MEDS ORDERED: FUROSEMIDE 40MG/4ML VIAL IV ONE (10:00)
[2023-05-26] MEDS ORDERED: PRED10TA2 PO (10:50)
[2023-05-26] MEDS ORDERED: LEVAINH INH (11:45)
[2023-05-26 14:09] LABS: BODY FLUID CULTURE Not indicated. (.); LEGIONELLA ANTIGEN URINE Negative (Negative); ORGANISM ID Not indicated. (.); SPECIMEN SOURCE Urine (.); URINE STREP PNEUMONIAE ANTIGEN Negative (Negative)
[2023-05-26] MEDS ORDERED: REMDESIVIR 100 MG in NS 250 ML IV SCH (18:00)
== END 2023-05-26 14:57 | disposition home health service (06) | DRG 871 ==
LOC: EDBD 13:59 → M ED 13:59 → M ED INP 16:45 → M PCU 21:11 → OBSVTOIN 05-24 14:15 → M PCU 05-25 21:36
PROVIDERS: ADMIT Internal Medicine; ATTEND Internal Medicine
PROC: XW033E5 Introduction of Remdesivir Anti-infective into Peripheral Vein, Percutaneous Approach, New Technology Group 5 (ICD-10-PCS; principal; 2023-05-25)
DX: A41.9 Sepsis, unspecified organism (principal); U07.1 COVID-19; J15.9 Unspecified bacterial pneumonia; I50.32 Chronic diastolic (congestive) heart failure; J44.0 Chronic obstructive pulmonary disease with (acute) lower respiratory infection; K21.9 Gastro-esophageal reflux disease without esophagitis; D50.9 Iron deficiency anemia, unspecified; I11.0 Hypertensive heart disease with heart failure; E87.6 Hypokalemia; I25.10 Atherosclerotic heart disease of native coronary artery without angina pectoris; G30.9 Alzheimer's disease, unspecified; F02.80 Dementia in other diseases classified elsewhere, unspecified severity, without behavioral disturbance, psychotic disturbance, mood disturbance, and anxiety; I48.91 Unspecified atrial fibrillation; Z66 Do not resuscitate; R74.01 Elevation of levels of liver transaminase levels; E11.42 Type 2 diabetes mellitus with diabetic polyneuropathy; Z79.2 Long term (current) use of antibiotics; Z79.01 Long term (current) use of anticoagulants; Z79.82 Long term (current) use of aspirin; Z88.4 Allergy status to anesthetic agent; Z79.899 Other long term (current) drug therapy

== ENCOUNTER 2023-07-21 23:00 | Emergency (ER) | payer MEDICARE, MEDICAID ==
[~2023-07-21] VITALS: Ht 160 cm; Wt 68.2 kg
[~2023-07-21 23:00] MED LIST changes: +ANOR1AER PO; +CEFD1CAP9 PO; -CEFD300C42 PO; +DOXY-444 PO; +K-TA1TAB PO; +LEVAINH INH; +MUCI600T31 PO; +PRED10TA2 PO
[2023-07-21 23:02] VITALS: TEMP 98.1
[2023-07-22 00:25] VITALS: BP 148/84; O2SAT 99
== END 2023-07-22 00:34 | disposition home or self-care (01) ==
LOC: M ED 23:00
DX: S90.01XA Contusion of right ankle, initial encounter (principal); S93.401A Sprain of unspecified ligament of right ankle, initial encounter; W06.XXXA Fall from bed, initial encounter; Y92.009 Unspecified place in unspecified non-institutional (private) residence as the place of occurrence of the external cause; Y93.89 Activity, other specified; Y99.9 Unspecified external cause status; Z79.01 Long term (current) use of anticoagulants; Z79.82 Long term (current) use of aspirin; Z79.02 Long term (current) use of antithrombotics/antiplatelets; Z79.811 Long term (current) use of aromatase inhibitors; Z79.899 Other long term (current) drug therapy

== ENCOUNTER 2023-07-26 12:33 | Emergency (ER) | payer MEDICARE, MEDICAID ==
[~2023-07-26] VITALS: Ht 157.5 cm; Wt 68.2 kg
[2023-07-26 14:49] LABS: BASO % 0.5 % (0.0-1.0); EOS # 0.2 10^3/uL (0.0-0.5); EOS % 2.6 % (0.0-3.0); HEMATOCRIT 33.6 % (36.0-47.0); HEMOGLOBIN 10.7 g/dl (12.0-15.5); LYMPH # 2.8 10^3/uL (1.5-5.0); LYMPH % 34.5 % (24.0-44.0); MEAN CORPUSCULAR HEMOGLOBIN 28.6 pg (27.0-33.0); MEAN CORPUSCULAR HGB CONC 31.8 g/dl (32.0-36.5); MEAN CORPUSCULAR VOLUME 89.8 fl (80.0-96.0); MONO # 0.6 10^3/uL (0.0-0.8); MONO % 7.8 % (2.0-8.0); NEUTROPHILS # 4.4 10^3/uL (1.5-8.5); NEUTROPHILS % 54.2 % (36.0-66.0); PLATELET COUNT, AUTOMATED 195 10^3/uL (150-450); RED BLOOD COUNT 3.74 10^6/uL (4.00-5.40)
[2023-07-26 14:58] LABS: ERYTHROCYTE SEDIMENTATION RATE 17 mm/hr (0-30)
[2023-07-26 15:00] LABS: INR 1.57; PROTHROMBIN TIME 18.3 SECONDS (12.5-14.5)
[2023-07-26 15:01] LABS: PARTIAL THROMBOPLASTIN TIME 35.8 SECONDS (24.8-34.2)
[2023-07-26 15:07] LABS: C REACTIVE PROTEIN QUANTITATIV < 0.40 MG/DL (<1.0)
[2023-07-26 15:09] LABS: ALBUMIN 3.5 G/DL (3.2-5.2); ALKALINE PHOSPHATASE 100 U/L (46-116); ALT/SGPT 20 U/L (7.0-40); AST/SGOT 18 U/L (<34); BILIRUBIN,DIRECT 0.3 MG/DL (<0.4); BILIRUBIN,TOTAL 0.7 MG/DL (0.3-1.2); BLOOD UREA NITROGEN 24 MG/DL (9-23); CALCIUM LEVEL 8.6 MG/DL (8.3-10.6); CARBON DIOXIDE LEVEL 30 MMOL/L (20-31); CHLORIDE LEVEL 102 MMOL/L (98-107); CREATININE FOR GFR 1.06 MG/DL (0.55-1.30); GLOMERULAR FILTRATION RATE 53.1 (>32); GLUCOSE, FASTING 227 MG/DL (74-106); POTASSIUM SERUM 4.2 MMOL/L (3.5-5.1); SODIUM LEVEL 137 MMOL/L (136-145); TOTAL PROTEIN 6.2 G/DL (5.7-8.2)
[2023-07-26 15:15] LABS: RSV AMPLIFICATION NEGATIVE (NEGATIVE)
[2023-07-26 15:29] VITALS: BP 106/60; TEMP 97.9; O2SAT 99
== END 2023-07-26 15:58 | disposition home or self-care (01) ==
LOC: M ED 12:33
DX: S80.11XA Contusion of right lower leg, initial encounter (principal); W06.XXXA Fall from bed, initial encounter; F32.A Depression, unspecified; K21.9 Gastro-esophageal reflux disease without esophagitis; E78.5 Hyperlipidemia, unspecified; I25.2 Old myocardial infarction; I10 Essential (primary) hypertension; J44.9 Chronic obstructive pulmonary disease, unspecified; F41.9 Anxiety disorder, unspecified; Y92.009 Unspecified place in unspecified non-institutional (private) residence as the place of occurrence of the external cause; Y93.89 Activity, other specified; Y99.9 Unspecified external cause status; Z79.01 Long term (current) use of anticoagulants; Z79.82 Long term (current) use of aspirin; Z79.02 Long term (current) use of antithrombotics/antiplatelets; Z79.811 Long term (current) use of aromatase inhibitors; Z79.52 Long term (current) use of systemic steroids; Z79.899 Other long term (current) drug therapy

== ENCOUNTER 2024-06-07 13:40 | Emergency (ER) | payer MEDICARE, MEDICAID ==
[~2024-06-07] VITALS: Ht 157.5 cm; Wt 62.7 kg
[~2024-06-07 13:40] MED LIST changes: +DOXY-440 PO; -DOXY-444 PO; +GABA-1172 PO; -GABA-282 PO; +LEVA15HF2 INH; -LEVAINH INH; +MEMA10TA PO; -MEMA10TA19 PO; +ONDA-282 PO; -ONDA4TAB6 PO; -OXYB5TAB11 PO; +OXYB5TAB14 PO; -POTA10CA60 PO; +POTA10CA70 PO
[2024-06-07 14:06] VITALS: TEMP 97.5
[2024-06-07 14:12] LABS: BASO % 0.4 % (0.0-1.0); EOS # 0.1 10^3/uL (0.0-0.5); EOS % 1.8 % (0.0-3.0); HEMATOCRIT 36.4 % (36.0-47.0); LYMPH # 1.3 10^3/uL (1.5-5.0); LYMPH % 19.3 % (24.0-44.0); MEAN CORPUSCULAR HEMOGLOBIN 29.9 pg (27.0-33.0); MEAN CORPUSCULAR VOLUME 90.8 fl (80.0-96.0); MONO # 0.4 10^3/uL (0.0-0.8); MONO % 6.1 % (2.0-8.0); NEUTROPHILS # 4.9 10^3/uL (1.5-8.5); PLATELET COUNT, AUTOMATED 181 10^3/uL (150-450); RED BLOOD COUNT 4.01 10^6/uL (4.00-5.40); WHITE BLOOD COUNT 6.7 10^3/uL (4.0-10.0)
[2024-06-07 14:23] LABS: INR 1.32; PROTHROMBIN TIME 16.7 SECONDS (12.5-14.5)
[2024-06-07 14:44] LABS: LIPASE 27 U/L (12-53)
[2024-06-07 14:46] LABS: CPK CREATINE PHOSPHOKINASE 52 U/L (34-145); MB/CK RELATIVE INDEX 1.92 (< OR =4)
[2024-06-07 14:47] LABS: ALBUMIN 3.7 G/DL (3.2-5.2); ALKALINE PHOSPHATASE 128 U/L (35-104); ALT/SGPT 28 U/L (7.0-40); AST/SGOT 18 U/L (<34); BILIRUBIN,DIRECT 0.4 MG/DL (<0.4); BLOOD UREA NITROGEN 13 MG/DL (9-23); CALCIUM LEVEL 9.2 MG/DL (8.3-10.6); CARBON DIOXIDE LEVEL 28 MMOL/L (20-31); CHLORIDE LEVEL 106 MMOL/L (98-107); CREATININE FOR GFR 0.88 MG/DL (0.55-1.30); GLOMERULAR FILTRATION RATE > 60.0 (>32); GLUCOSE, FASTING 239 MG/DL (74-106); POTASSIUM SERUM 3.2 MMOL/L (3.5-5.1); SODIUM LEVEL 141 MMOL/L (136-145); TOTAL PROTEIN 6.8 G/DL (5.7-8.2)
[2024-06-07] MEDS: ACETAMINOPHEN 325 MG TAB PO ONE (14:55)
[2024-06-07] MEDS: LIDOCAINE 5% (LIDODERM) PATCH TD ONE (14:55)
[2024-06-07 15:52] LABS: CK-MB VALUE MASS 1.1 NG/ML (<3.6)
[2024-06-07 15:54] LABS: MB/CK RELATIVE INDEX 2.15 (< OR =4)
[2024-06-07 16:30] VITALS: BP 183/72; O2SAT 99
[2024-06-07] MEDS ORDERED: LIDO5TD TOP (16:46)
[2024-06-07] MEDS ORDERED: TYLE650T38 PO (16:46)
== END 2024-06-07 17:00 | disposition home or self-care (01) ==
LOC: M ED 13:40
DX: R07.89 Other chest pain (principal); I51.7 Cardiomegaly; E11.9 Type 2 diabetes mellitus without complications; I10 Essential (primary) hypertension; I48.91 Unspecified atrial fibrillation; I50.9 Heart failure, unspecified; I25.2 Old myocardial infarction; Z86.73 Personal history of transient ischemic attack (TIA), and cerebral infarction without residual deficits; K21.9 Gastro-esophageal reflux disease without esophagitis; J44.9 Chronic obstructive pulmonary disease, unspecified; F41.9 Anxiety disorder, unspecified; F32.9 Major depressive disorder, single episode, unspecified; Z87.442 Personal history of urinary calculi; Z95.1 Presence of aortocoronary bypass graft; Z95.5 Presence of coronary angioplasty implant and graft; Z79.01 Long term (current) use of anticoagulants; Z79.82 Long term (current) use of aspirin; Z79.899 Other long term (current) drug therapy

== ENCOUNTER 2024-11-23 15:14 | Emergency (ER) | payer MEDICARE, MEDICAID ==
[~2024-11-23] VITALS: Ht 157.5 cm; Wt 64.5 kg
[~2024-11-23 15:14] MED LIST changes: +LIDO5TD TOP; +TYLE650T38 PO
[2024-11-23] MEDS ORDERED: POTA-151 (15:28)
[2024-11-23] MEDS ORDERED: CARV25TA (15:28)
[2024-11-23] MEDS ORDERED: LEVO100T5 (15:28)
[2024-11-23 16:13] LABS: BASO % 0.3 % (0.0-1.0); EOS # 0.1 10^3/uL (0.0-0.5); EOS % 1.1 % (0.0-3.0); HEMATOCRIT 34.6 % (36.0-47.0); HEMOGLOBIN 11.1 g/dl (12.0-15.5); LYMPH # 1.1 10^3/uL (1.5-5.0); LYMPH % 18.6 % (24.0-44.0); MEAN CORPUSCULAR HEMOGLOBIN 29.6 pg (27.0-33.0); MEAN CORPUSCULAR HGB CONC 32.1 g/dl (32.0-36.5); MEAN CORPUSCULAR VOLUME 92.3 fl (80.0-96.0); MONO # 0.3 10^3/uL (0.0-0.8); MONO % 5.4 % (2.0-8.0); NEUTROPHILS # 4.6 10^3/uL (1.5-8.5); NEUTROPHILS % 74.3 % (36.0-66.0); PLATELET COUNT, AUTOMATED 177 10^3/uL (150-450); RED BLOOD COUNT 3.75 10^6/uL (4.00-5.40); WHITE BLOOD COUNT 6.1 10^3/uL (4.0-10.0)
[2024-11-23 16:40] LABS: CK-MB VALUE MASS 1.4 NG/ML (<3.6)
[2024-11-23 16:41] LABS: CALCIUM LEVEL 8.7 MG/DL (8.3-10.6); CREATININE FOR GFR 0.91 MG/DL (0.55-1.30); GLOMERULAR FILTRATION RATE 63.4 (>32); MB/CK RELATIVE INDEX 2.08 (< OR =4); POTASSIUM SERUM 3.3 MMOL/L (3.5-5.1)
[2024-11-23 17:53] LABS: CK-MB VALUE MASS 1.4 NG/ML (<3.6)
[2024-11-23 17:54] LABS: MB/CK RELATIVE INDEX 2.64 (< OR =4)
[2024-11-23 18:23] VITALS: BP 111/68; TEMP 98.1; O2SAT 96
[2024-11-23] MEDS: POTASSIUM CHLORIDE 10MEQ SR TABLET PO ONE (18:27)
== END 2024-11-23 18:35 | disposition home or self-care (01) ==
LOC: M ED 15:14
DX: E87.6 Hypokalemia (principal); R07.9 Chest pain, unspecified; I11.9 Hypertensive heart disease without heart failure; I50.9 Heart failure, unspecified; I25.2 Old myocardial infarction; I10 Essential (primary) hypertension; E11.9 Type 2 diabetes mellitus without complications; E78.5 Hyperlipidemia, unspecified; K21.9 Gastro-esophageal reflux disease without esophagitis; J44.9 Chronic obstructive pulmonary disease, unspecified; Z98.84 Bariatric surgery status; Z95.5 Presence of coronary angioplasty implant and graft; Z79.01 Long term (current) use of anticoagulants; Z79.82 Long term (current) use of aspirin; Z79.899 Other long term (current) drug therapy

== ENCOUNTER 2025-02-25 18:15 | Emergency (ER) | payer MEDICARE ==
[~2025-02-25] VITALS: Ht 165.1 cm; Wt 65.9 kg
[~2025-02-25 18:15] MED LIST changes: +BACI500O8 TOP; +CARV25TA; +CEPH500C PO; -DEPA250T32 PO; +DIVA-65 PO; +LEVO100T5
[2025-02-26 00:39] VITALS: BP 151/60; TEMP 97.4; O2SAT 100
== END 2025-02-26 00:51 | disposition home or self-care (01) ==
LOC: M ED 18:15
DX: S63.502A Unspecified sprain of left wrist, initial encounter (principal); W01.0XXA Fall on same level from slipping, tripping and stumbling without subsequent striking against object, initial encounter; Y92.009 Unspecified place in unspecified non-institutional (private) residence as the place of occurrence of the external cause; Y93.9 Activity, unspecified; Y99.9 Unspecified external cause status; M85.842 Other specified disorders of bone density and structure, left hand; Z79.01 Long term (current) use of anticoagulants; Z79.82 Long term (current) use of aspirin; Z79.899 Other long term (current) drug therapy